=== PATIENT | female | born 1960 | race American Indian/Alaskan Native ===

== ENCOUNTER 2016-08-01 20:45 | Inpatient (IN) | payer OTHER ==
[2016-08-01 21:38] LABS: Hematocrit 36.5 % (30.3-42.9); Hemoglobin 11.7 gm/dl (10.1-14.3); Mean Corpuscular HGB Conc 32 % (30-34); Mean Corpuscular Hemoglobin 29 pg (28-32); Mean Corpuscular Volume 91 fl (79-97); Platelet Count 258 K/mm3 (140-440); Red Blood Count 4.03 M/mm3 (3.65-5.03); Red Cell Distribution Width 13.8 % (13.2-15.2); White Blood Count 3.2 K/mm3 (4.5-11.0)
[2016-08-01 21:49] LABS: INR 1.35 (0.87-1.13); Partial Thromboplastin Time 30.3 Sec. (24.2-36.6)
[2016-08-01 22:09] LABS: Anion Gap 15 mmol/L; BUN/Creatinine Ratio 15.71; Blood Urea Nitrogen 11 mg/dL (7-17); Calcium 9.3 mg/dL (8.4-10.2); Carbon Dioxide 27 mmol/L (22-30); Chloride 105.2 mmol/L (98-107); Glucose 98 mg/dL (65-100); Potassium 4.5 mmol/L (3.6-5.0); Sodium 143 mmol/L (137-145)
[2016-08-01 22:20] LABS: Bilirubin,Urine NEG (Negative); Blood,Urine NEG (Negative); Ketones,Urine NEG (Negative); Leukocyte Esterase,Urine TR (Negative); Mucus,Urine 3+ /HPF; Nitrite,Urine NEG (Negative); Protein,Urine <15 mg/dL mg/dL (Negative); Urobilinogen,Urine < 2.0 mg/dL (<2.0); WBC,Urine < 1.0 /HPF (0.0-6.0)
[2016-08-02] MEDS ORDERED: ZOFRAN IV ONE (06:55)
[2016-08-02] MEDS ORDERED: MORPHINE IV ONE (06:55)
[2016-08-02] MEDS ORDERED: ARGATROBAN 250 MG in NACL 0.9% 250ML 247.5 ML IV SCH (07:00)
--- NOTE | 2016-08-02 07:02 | Emergency Department Report ---
ED Extremity Problem HPI - General Chief complaint: Extremity Injury, Lower Stated complaint: L LEG BLOOD CLOT Time Seen by Provider: 08/02/16 06:32 Source: patient, RN notes reviewed Mode of arrival: Ambulatory Limitations: No Limitations - History of Present Illness Initial comments: 55-year-old female presents to the emergency department complaining of a DVT in her left thigh. Patient states for the past 2 weeks she has been having intermittent left thigh pain radiating into her groin. 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 She also reports having stents in both of her legs. Patient was seen by her vascular surgeon, Dr. Khan. She states that he did an ultrasound and found a large clot in her left thigh. She states that he wanted her to be admitted for IVC filter placement and "a drip to dissolve the clot." There are no other complaints. MD Complaint: extremity pain -: Gradual, week(s) (2) Location: left, lower extremity History of Same: Yes -: Yes myalgia, No fever, No associated dyspnea, No associated chest pain Severity scale (0 -10): 10 Quality: aching Consistency: constant Improves with: nothing Worsens with: nothing Associated Symptoms: denies other symptoms - Related Data Home Medications Medication Instructions Recorded Confirmed Last Taken traMADol [Ultram 50 MG tab] 50 mg PO Q8HR PRN 07/16/15 07/16/15 Unknown Previous Rx's Medication Instructions Recorded Last Taken Type Rivaroxaban [Xarelto] 15 mg PO BID #42 tablet 07/17/15 Unknown Rx Famotidine [Pepcid] 20 mg PO BID #20 tablet 07/19/15 Unknown Rx hydrOXYzine HCL [Atarax] 50 mg PO Q6HR PRN #30 tablet 07/19/15 Unknown Rx Allergies Allergy/AdvReac Type Severity Reaction Status Date / Time acetaminophen [From Percocet] Allergy Hives Verified 07/19/15 15:02 oxycodone HCl [From Percocet] Allergy Hives Verified 07/19/15 15:02 heparin AdvReac Severe Bleeding Verified 07/19/15 15:02 ED Review of Systems ROS: Stated complaint: L LEG BLOOD CLOT Other details as noted in HPI Comment: All other systems reviewed and negative Musculoskeletal: as per HPI (left leg swelling and pain) ED Past Medical Hx - Past Medical History Hx Hypertension: No Hx Congestive Heart Failure: No Hx Diabetes: No Hx Deep Vein Thrombosis: Yes (bilateral lower extremities,thrombectomy,ivc filter) Hx GERD: Yes Hx Asthma: No Hx COPD: No Hx Tuberculosis: No - Surgical History Hx Pacemaker: No Hx Internal Defibrillator: No Additional Surgical History: RIGHT LEG (INFECTION ) WITH WOUND VAC. FILTER AND REMOVAL - Social History Smoking Status: Never Smoker Substance Use Type: None - Medications Home Medications: Home Medications Medication Instructions Recorded Confirmed Last Taken Type traMADol [Ultram 50 MG tab] 50 mg PO Q8HR PRN 07/16/15 07/16/15 Unknown History Rivaroxaban [Xarelto] 15 mg PO BID #42 tablet 07/17/15 Unknown Rx Famotidine [Pepcid] 20 mg PO BID #20 tablet 07/19/15 Unknown Rx hydrOXYzine HCL [Atarax] 50 mg PO Q6HR PRN #30 tablet 07/19/15 Unknown Rx ED Physical Exam - General Limitations: No Limitations General appearance: alert, in no apparent distress - Head Head exam: Present: atraumatic, normocephalic - Eye Eye exam: Present: normal appearance, PERRL, EOMI - ENT ENT exam: Present: normal exam, normal orophraynx, mucous membranes moist - Neck Neck exam: Present: normal inspection, full ROM. Absent: tenderness - Respiratory Respiratory exam: Present: normal lung sounds bilaterally. Absent: respiratory distress - Cardiovascular Cardiovascular Exam: Present: regular rate, normal rhythm, normal heart sounds - GI/Abdominal GI/Abdominal exam: Present: soft, normal bowel sounds. Absent: distended, tenderness - Extremities Exam Extremities exam: Present: normal inspection, full ROM. Absent: tenderness - Back Exam Back exam: Present: normal inspection, full ROM. Absent: tenderness - Neurological Exam Neurological exam: Present: alert, oriented X3. Absent: motor sensory deficit - Skin Skin exam: Present: warm, dry, intact ED Course Vital Signs 08/01/16 08/02/16 08/02/16 21:18 03:10 04:07 Temperature 98.2 F Pulse Rate 67 58 L Respiratory 18 18 14 Rate Blood Pressure 119/73 Blood Pressure 117/63 [Left] O2 Sat by Pulse 100 99 Oximetry 08/02/16 05:49 Temperature 98.1 F Pulse Rate 64 Respiratory 12 Rate Blood Pressure Blood Pressure 120/70 [Left] O2 Sat by Pulse 99 Oximetry ED Medical Decision Making - Lab Data Result diagrams: 08/01/16 21:27 08/01/16 21:27 - Medical Decision Making Lab results reviewed and discussed with the patient. I have spoken with Dr. Real, drier belt conveyor for Dr. Khan. Patient is being started on an argatroban drip and will be kept nothing by mouth. Patient is to be admitted by the hospitalist. - Differential Diagnosis DVT Critical care attestation.: If time is entered above; I have spent that time in minutes in the direct care of this critically ill patient, excluding procedure time. ED Disposition Clinical Impression: DVT of leg (deep venous thrombosis) Qualifiers: Affected thrombotic vein of extremity: femoral Laterality: left Chronicity: acute Qualified Code(s): I82.412 - Acute embolism and thrombosis of left femoral vein Disposition: OP ADMITTED IP TO THIS HOSP Is pt being admited?: Yes Condition: Stable Referrals: PRIMARY CARE, [Primary Care Provider] - 3-5 Days Time of Disposition: 07:03
--- NOTE | 2016-08-02 07:19 | Admit Criteria Form ---
Admission Criteria Documentation: DEEP VENOUS THROMBOSIS OF LOWER EXTREMITIES Clinical Indications for Admission to Inpatient Care ( Place 'X' for any and all applicable criteria): Admission is indicated for ANY ONE of the following (1)(2)(3)(4): [ ]I. Documented extensive thrombosis (e.g., clot in vena cava or above iliofemoral bifurcation) [ ]II. Limb-threatening thrombosis (e.g., phlegmasia cerulea dolens) [ ]III. Active bleeding [ ]IV. Recent surgery (e.g., within 6 weeks) [ ]V. Active peptic ulcer disease [ ]. Thrombosis while on anticoagulation [ ]VII. [X ]VIII. Appropriate monitoring and therapy cannot be provided in home or outpatient setting [ ]IX. Thrombolysis (e.g., catheter-directed) or pharmaco mechanical thrombectomy needed (3) [ ]X. Vena cava filter placement planned (3) [ ]XI. Severely diminished cardiopulmonary reserve (e.g., pulmonary hypertension) [ ]XII. Severe renal failure (e.g., GFR less than 30 mL/min/1.73m2 (0.5 mL/sec /1.73m2)) [ ]XIII. Known clotting abnormality or deficiency (antithrombin III, protein C , or protein S) [ ]XIV. History of heparin-induced thrombocytopenia [ ]XV . Personal or family history of bleeding tendency or familial bleeding disorder that requires inpatient admission rather than observation care (Also use Deep Venous Thrombosis of Lower Extremities: Observation Care as appropriate) because of ANY ONE of the following: [ ]a) Significant allergic, autoimmune (thrombocytopenia), or coagulopathic reaction occurs in response to anticoagulation [ ]b) Other significant finding or clinical condition judged not to be within the scope of observation care Extended stay beyond goal length of stay may be needed for(1)(19): [ ]a) Hemorrhage or recent surgery(3) [ ]b) Inadequate oral anticoagulation [ ]c) Recurrent thromboembolism(3) [ ]d) Heparin-induced thrombocytopenia(14) The [facility] content [facility] by [facility] has been revised. The portions of the content which have been revised are identified through the use of italic text or in bold, and [facility] has neither reviewed nor approved the modified material. All other unmodified content is copyright [facility]. Please see references footnoted in the original [facility] edition 2016 Admission Criteria Met: Yes
[2016-08-02] MEDS ORDERED: MILK OF MAGNESIA PO PRN (07:51)
[2016-08-02] MEDS ORDERED: PROVENTIL IH PRN (07:51)
[2016-08-02] MEDS ORDERED: ANCEF/STERILE WATER 2 GM/20 ML 2 GM/20 ML SYRINGE IV NR ×2 (10:00)
[2016-08-02] MEDS ORDERED: DULCOLAX PR PRN (10:00)
[2016-08-02] MEDS ORDERED: MORPHINE ONE (12:42)
[2016-08-02] MEDS ORDERED: NACL 0.9% 1000 ML 1,000 ML ONE (12:44)
[2016-08-02] MEDS ORDERED: HEPARIN/ 0.45% NACL-25,000 UNIT/500 ML 25,000 UNIT/500 ML BAG ONE (12:44)
[2016-08-02] MEDS ORDERED: WATER FOR INJ (PF) 10 ML ONE ×2 (12:45→14:23)
[2016-08-02] MEDS ORDERED: XYLOCAINE 1%/ EPI 1:100,000 INFILTRATI ONE (12:45)
[2016-08-02] MEDS ORDERED: ANCEF/STERILE WATER 2 GM/20 ML 2 GM/20 ML SYRINGE IV ONE (12:46)
[2016-08-02 12:47] LABS: Alanine Aminotransferase 8 units/L (7-56); Albumin 3.7 g/dL (3.9-5); Albumin/Globulin Ratio 1.4 %; Alkaline Phosphatase 86 units/L (35-129); Total Protein 6.3 g/dL (6.3-8.2)
[2016-08-02 12:53] LABS: Bilirubin,Direct < 0.2 mg/dL (0-0.2)
[2016-08-02] MEDS ORDERED: HEPARIN/NS 5000 UNIT/500ML(CATH LAB) 1,000 ML IR ONE (13:50)
[2016-08-02] MEDS ORDERED: NACL 0.9% 500 ML 500 ML ONE (13:57)
[2016-08-02] MEDS: SUBLIMAZE ONE ×3 (14:05→14:50)
[2016-08-02] MEDS: VERSED ONE ×2 (14:05→14:20)
[2016-08-02] MEDS ORDERED: SUBLIMAZE ONE (14:19)
[2016-08-02] MEDS ORDERED: HEPARIN/NS 5000 UNIT/500ML(CATH LAB) 500 ML IR ONE (14:19)
[2016-08-02] MEDS ORDERED: VERSED ONE (14:19)
[2016-08-02] MEDS ORDERED: CATHFLO ONE ×2 (14:19→15:07)
[2016-08-02] MEDS: HEPARIN 10,000 UNITS/10 ML ONE ×4 (14:20→15:38)
[2016-08-02] MEDS ORDERED: NACL 0.9% 0 ML ONE (14:23)
[2016-08-02] MEDS ORDERED: NACL 0.9% 50 ML ONE (14:26)
[2016-08-02] MEDS: CATHFLO ONE ×2 (14:40→15:18)
[2016-08-02 15:46] LABS: Hematocrit 33.6 % (30.3-42.9); Hemoglobin 10.9 gm/dl (10.1-14.3); Mean Corpuscular HGB Conc 33 % (30-34); Mean Corpuscular Hemoglobin 30 pg (28-32); Mean Corpuscular Volume 91 fl (79-97); Platelet Count 204 K/mm3 (140-440); Red Blood Count 3.71 M/mm3 (3.65-5.03); Red Cell Distribution Width 13.6 % (13.2-15.2); White Blood Count 2.6 K/mm3 (4.5-11.0)
[2016-08-02 15:57] LABS: INR 1.38 (0.87-1.13)
[2016-08-02] MEDS ORDERED: NACL 0.9% 1000 ML 1,000 ML SHEATH SCH (16:00)
[2016-08-02] MEDS ORDERED: NACL 0.9% 1000 ML 1,000 ML EKOSCLUMEN SCH (16:00)
[2016-08-02] MEDS ORDERED: HEPARIN/ 0.45% NACL-25,000 UNIT/500 ML 25,000 UNIT/500 ML BAG SHEATH SCH (16:00)
[2016-08-02] MEDS ORDERED: NACL 0.9% 1000 ML 1,000 ML IV SCH (16:00)
--- NOTE | 2016-08-02 16:05 | Operative Report ---
Operative Report Operative Report: EXAM: 1. Ultrasound-guided access of the right internal jugular vein 2. Selection of the inferior vena cava with venography 3. Selection of the left external iliac vein with thenar atrophy 4. Selection of the left common femoral vein with angiography 5. Selection of the left superficial femoral vein with angiography 6. 10 mg TPA pulse spray infusion through the left common iliac vein, left external iliac vein, left common femoral vein, and left superficial femoral vein 7. Mechanical thrombectomy with 8 Sammarinese AngioJet of the left common iliac vein , left external iliac vein, left common femoral vein, and left superficial femoral vein 8. 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 2 weeks ago, the patient had recurrent severe left lower extremity pain and swelling and presented to the office with a left lower extremity DVT. She subsequently presented to the emergency room and risks, benefits, and alternatives of thrombolytic therapy was discussed with the patient. Patient wanted to proceed with aggressive endovascular thrombolysis due to her severe symptomatology and underlying venous stenting. The patient had a prior history of heparin-induced thrombocytopenia which was preliminarily diagnosed at [place]. Her records at [place] were reviewed and her hit panel was negative, which was unknown at the time she was transferred to [facility] due to the panel not being completed at time of transfer. She does not have heparin-induced thrombocytopenia. MEDICATIONS: Please see nursing report for full details. DEVICES: 8 Sammarinese AngioJet CONTRAST: 25 mL of nonionic contrast PROCEDURE: The risks, benefits, and alternatives were discussed with the patient; written informed consent was obtained. The patient was prepped and draped in a sterile fashion. The patient's left groin was prepped and draped in a sterile fashion in her right neck was prepped and draped in sterile fashion. Ultrasound was used to evaluate her right internal jugular vein which was patent. Under direct ultrasound guidance, the right internal jugular vein was accessed with a 21-gauge micropuncture needle after the area was anesthetized with 1% lidocaine. 0.018 inch wire was passed to the IVC. Needle was exchanged for transitional dilator. Wire was exchanged for 0.035 inch J-wire. Transitional dilator was exchanged for a 5 Sammarinese sheath. Pigtail was advanced over the wire and use to select the infrarenal inferior vena cava which was partially stented. The patient had an old Optese filter placed in the early which was previously stented with stents extending into the bilateral common iliac veins and left external iliac vein. Digital subjective angiography was performed demonstrating patency of the infrarenal IVC with reflux of contrast into the right common iliac vein which was patent. I attempted to push the pigtail catheter further into the common iliac vein, but the catheter would not pass, compatible with some element of chronic narrowing. Angled catheter and Glidewire advantage were used to select the left external iliac vein. Digital subtraction angiography demonstrated occlusive thrombus in the left common iliac vein and external iliac vein. Wire and catheter were used to select the left common femoral vein. Digital subtraction angiography demonstrates occlusion of the left common femoral vein. Wire and catheter were used to select the left superficial femoral vein. Digital subtraction angiography was performed demonstrated that the large branch of the superficial femoral vein was distally patent, but proximally occluded. Ultrasound was then used to evaluate the left groin which demonstrated that the left superficial femoral vein had a large more posterior branch which was below the profunda femoral vein. This branch was larger than the superficial femoral vein and was likely related to prior DVTs with recanalization. Given the large nature of the vein, I decided that this vein would be adequate for thrombolysis as it drained most flow from the left lower extremity. Sheath was upsized to an 8 Sammarinese sheath. 10 mg of TPA was then pulse spray infused using an 8 Sammarinese AngioJet into the left common iliac vein, external iliac vein, common femoral vein, and proximal superficial femoral vein. 8 Sammarinese AngioJet was then used to perform mechanical thrombectomy of the left common iliac vein, external iliac vein, common femoral vein, and proximal superficial femoral vein. Digital subtraction angiography was performed demonstrating greater than 50% residual thrombus in the left common iliac vein, external iliac vein, common femoral vein, and proximal superficial femoral vein. Thrombolytic catheter was advanced over the wire and passed across the left common iliac, external iliac, common femoral, and proximal superficial femoral vein. 4 mg of TPA was infused. 2-3000 units of heparin was then used to lock the sheath. Thrombolytic catheter and sheath were secured with 2-0 Ethilon. Patient tolerated the procedure well. No immediate postprocedure complication. She was then sent to the ICU in stable condition. FINDINGS: Please see procedure note above. IMPRESSION: 1. Successful selection of venography of the left lower extremity. 2. Successful mechanical thrombectomy of the left lower extremity. 3. Successful placement of a thrombolytic catheter in the left lower extremity.
[2016-08-02 16:11] LABS: Partial Thromboplastin Time 95.8 Sec. (24.2-36.6)
[2016-08-02] MEDS: CATHFLO 20 MG in NACL 0.9% 500 ML 500 ML EKOSDLUMEN SCH (16:21)
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
[2016-08-02 16:31] LABS: Basophils % (Manual) 0 % (0.0-1.8); Blastocytes % (Manual) 0 %; Eosinophils % (Manual) 0 % (0.0-4.3)
[2016-08-02 16:32] LABS: Anisocytosis 1+; Diff Status Complete
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
[2016-08-02] MEDS: MORPHINE IV PRN (18:23)
[2016-08-02] MEDS: ALUM-MAG HYDROX-SIMETH 200-200-20MG/5ML PO PRN (19:06)
--- NOTE | 2016-08-02 19:53 | XRay Report ---
FINAL REPORT EXAM: XR CHEST 1V AP HISTORY: chest pain TECHNIQUE: AP portable view of the chest PRIORS: CT chest 07/16/2015 FINDINGS: Lines, tubes, and devices: N/A Lungs and pleura: Trachea is normal in position. Lungs are clear of infiltrate, pleural effusion, vascular congestion, or pneumothorax. No change. Cardiomediastinal silhouette: Cardiac and mediastinal silhouettes are unremarkable. Other: Bony structures are intact. IMPRESSION: No acute cardiopulmonary process seen. No change.
[2016-08-02] MEDS: ZOFRAN IV PRN (20:48)
[2016-08-02] MEDS: NORCO 5/325 PO PRN (20:48)
[2016-08-02] MEDS: PEPCID PO SCH (21:26)
[2016-08-02 22:28] LABS: Creatine Kinase 85 units/L (30-135); Creatine Kinase MB < 1.0 ng/mL (0.0-4.0)
[2016-08-02 22:33] LABS: Anion Gap 17 mmol/L; BUN/Creatinine Ratio 13.33; Blood Urea Nitrogen 8 mg/dL (7-17); Calcium 8.9 mg/dL (8.4-10.2); Carbon Dioxide 24 mmol/L (22-30); Chloride 107.1 mmol/L (98-107); Glucose 89 mg/dL (65-100); Potassium 4.3 mmol/L (3.6-5.0); Sodium 144 mmol/L (137-145)
[2016-08-02 22:35] LABS: Creatine Kinase 34 units/L (30-135); Creatine Kinase MB < 1.0 ng/mL (0.0-4.0)
[2016-08-03 00:10] LABS: Basophils % (Auto) 0.3 % (0.0-1.8); Eosinophils % (Auto) 0.3 % (0.0-4.3); Hematocrit 35.6 % (30.3-42.9); Hemoglobin 11.4 gm/dl (10.1-14.3); Mean Corpuscular HGB Conc 32 % (30-34); Mean Corpuscular Hemoglobin 29 pg (28-32); Mean Corpuscular Volume 92 fl (79-97); Platelet Count 198 K/mm3 (140-440); Red Blood Count 3.88 M/mm3 (3.65-5.03); Red Cell Distribution Width 13.4 % (13.2-15.2); White Blood Count 3.2 K/mm3 (4.5-11.0)
[2016-08-03] MEDS: MORPHINE IV PRN ×5 (00:56→22:55)
[2016-08-03 03:43] LABS: Anion Gap 17 mmol/L; BUN/Creatinine Ratio 11.25; Blood Urea Nitrogen 9 mg/dL (7-17); Calcium 8.9 mg/dL (8.4-10.2); Carbon Dioxide 23 mmol/L (22-30); Chloride 105.8 mmol/L (98-107); Glucose 117 mg/dL (65-100); Potassium 4.3 mmol/L (3.6-5.0); Sodium 141 mmol/L (137-145)
[2016-08-03 03:44] LABS: Basophils % (Auto) 0.6 % (0.0-1.8); Eosinophils % (Auto) 0.3 % (0.0-4.3); Hematocrit 37.2 % (30.3-42.9); Hemoglobin 12.1 gm/dl (10.1-14.3); Mean Corpuscular HGB Conc 32 % (30-34); Mean Corpuscular Hemoglobin 29 pg (28-32); Mean Corpuscular Volume 90 fl (79-97); Platelet Count 170 K/mm3 (140-440); Red Blood Count 4.12 M/mm3 (3.65-5.03); Red Cell Distribution Width 13.5 % (13.2-15.2); White Blood Count 3.7 K/mm3 (4.5-11.0)
[2016-08-03 03:46] LABS: Creatine Kinase 57 units/L (30-135)
[2016-08-03 04:23] LABS: Creatine Kinase MB < 1.0 ng/mL (0.0-4.0)
[2016-08-03] MEDS: ZOFRAN IV PRN ×4 (04:40→16:38)
[2016-08-03] MEDS: NORCO 5/325 PO PRN (04:49)
[2016-08-03] MEDS ORDERED: NACL 0.9% 500 ML 500 ML IV NR (09:00)
[2016-08-03] MEDS: SUBLIMAZE ONE ×8 (09:40→20:06)
[2016-08-03 09:41] LABS: Basophils % (Auto) 0.1 % (0.0-1.8); Eosinophils % (Auto) 0.3 % (0.0-4.3); Hematocrit 40.2 % (30.3-42.9); Hemoglobin 12.5 gm/dl (10.1-14.3); Mean Corpuscular HGB Conc 31 % (30-34); Mean Corpuscular Hemoglobin 29 pg (28-32); Mean Corpuscular Volume 93 fl (79-97); Platelet Count 151 K/mm3 (140-440); Red Blood Count 4.34 M/mm3 (3.65-5.03); Red Cell Distribution Width 13.5 % (13.2-15.2); White Blood Count 4.6 K/mm3 (4.5-11.0)
[2016-08-03] MEDS: CATHFLO 20 MG in NACL 0.9% 500 ML 500 ML EKOSDLUMEN SCH (10:31)
[2016-08-03] MEDS: PEPCID PO SCH ×2 (10:33→22:37)
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
[2016-08-03] MEDS ORDERED: NACL 0.9% 1000 ML 1,000 ML IV SCH (12:00)
--- NOTE | 2016-08-03 15:16 | Progress Note ---
Assessment and Plan Assessment and plan: Patient is a 55-year-old female with a history of recurrent thrombosis. 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 Also thrombectomy and angioplasty with stenting of the inferior vena cava and iliofemoral veins. Who presents to the hospital today with complaints of recurrent left lower extremity pain and swelling for the past 2 weeks. On outside ultrasound revealed a left lower extremity DVT despite patient being on full dose anticoagulation. She was sent to the hospital by the vascular surgeon for further evaluation. Patient denies any chest pain, nausea, vomiting, diarrhea. Patient reports that she's been compliant with her medications. She denies any recent long distance travel. She denies any shortness of breath at this time. She reports the pain in the left lower extremity as 10 over 10 intensity waxing and waning with no radiation. * Left lower extremity DVT * S/P EKOS for LE VTE * HIT antibiotics * Hypotension * Fibromyalgia * Vasculopath * Secondary Coagulopathy * Leukopenia PLAN: * Supportive care, start patient on Argtroban as patient has HIT antibiotics. * Monitor H/H * PICC access if ok with vascular * Vascular consult * DVT/GI prophylaxis History Interval history: Patient seen and examined, currently in no acute distress. Resting comfortable in the ICU. Limited IV access reported by nursing staff. Hospitalist Physical - Physical exam Narrative exam: VITAL SIGNS: Reviewed. GENERAL: The patient appeared well nourished and normally developed. Vital signs as documented. HEAD: No signs of head trauma. EYES: Pupils are equal. Extraocular motions intact. EARS: Hearing grossly intact. MOUTH: Oropharynx is normal. NECK: No adenopathy, no JVD. CHEST: Chest with clear breath sounds bilaterally. No wheezes, rales, or rhonchi. CARDIAC: Regular rate and rhythm. S1 and S2, without murmurs, gallops, or rubs. VASCULAR: Left lower ext Edema. Peripheral pulses normal and equal in all extremities. ABDOMEN: Soft, without detectable tenderness. No sign of distention. No rebound or guarding, and no masses palpated. Bowel Sounds normal. MUSCULOSKELETAL: Good range of motion of all major joints. Extremities without clubbing, cyanosis. Left lower ext edema. NEUROLOGIC EXAM: Alert and oriented x 3. No focal sensory or strength deficits. Speech normal. Follows commands. PSYCHIATRIC: Mood normal. SKIN: Right lower ext scare - Constitutional Vitals: Temp Pulse Resp BP Pulse Ox 99.2 F 81 14 104/51 100 08/03/16 12:00 08/03/16 11:41 08/03/16 11:41 08/03/16 11:41 08/03/16 11:41 General appearance: Present: no acute distress Results - Labs CBC & Chem 7: 08/03/16 09:33 08/03/16 02:57 Labs: Laboratory Last Values WBC 4.6 K/mm3 (4.5-11.0) 08/03/16 09:33 RBC 4.34 M/mm3 (3.65-5.03) 08/03/16 09:33 Hgb 12.5 gm/dl (10.1-14.3) 08/03/16 09:33 Hct 40.2 % (30.3-42.9) 08/03/16 09:33 MCV 93 fl (79-97) D 08/03/16 09:33 MCH 29 pg (28-32) 08/03/16 09:33 MCHC 31 % (30-34) 08/03/16 09:33 RDW 13.5 % (13.2-15.2) 08/03/16 09:33 Plt Count 151 K/mm3 (140-440) 08/03/16 09:33 Lymph % (Auto) 13.5 % (13.4-35.0) 08/03/16 09:33 [place] % (Auto) 3.2 % (0.0-7.3) 08/03/16 09:33 Eos % (Auto) 0.3 % (0.0-4.3) 08/03/16 09:33 Baso % (Auto) 0.1 % (0.0-1.8) 08/03/16 09:33 Lymph # 0.6 K/mm3 (1.2-5.4) L 08/03/16 09:33 [place] # 0.1 K/mm3 (0.0-0.8) 08/03/16 09:33 Eos # 0.0 K/mm3 (0.0-0.4) 05/11/17 09:33 Baso # 0.0 K/mm3 (0.0-0.1) 08/03/16 09:33 Add Manual Diff Complete 08/02/16 Unknown Total Counted 100 08/02/16 Unknown Seg Neutrophils % 82.9 % (40.0-70.0) H 08/03/16 09:33 Seg Neuts % (Manual) 35.0 % (40.0-70.0) L 08/02/16 Unknown Band Neutrophils % 0 % 08/02/16 Unknown Lymphocytes % (Manual) 53.0 % (13.4-35.0) H 08/02/16 Unknown Reactive Lymphs % (Man) 0 % 08/02/16 Unknown Monocytes % (Manual) 12.0 % (0.0-7.3) H 08/02/16 Unknown Eosinophils % (Manual) 0 % (0.0-4.3) 08/02/16 Unknown Basophils % (Manual) 0 % (0.0-1.8) 08/02/16 Unknown Metamyelocytes % 0 % 08/02/16 Unknown Myelocytes % 0 % 08/02/16 Unknown Promyelocytes % 0 % 08/02/16 Unknown Blast Cells % 0 % 08/02/16 Unknown Nucleated RBC % Not Reportable 08/02/16 Unknown Seg Neutrophils # 3.8 K/mm3 (1.8-7.7) 08/03/16 09:33 Seg Neutrophils # Man 0.9 K/mm3 (1.8-7.7) L 08/02/16 Unknown Band Neutrophils # 0.0 K/mm3 08/02/16 Unknown Lymphocytes # (Manual) 1.4 K/mm3 (1.2-5.4) 08/02/16 Unknown Abs React Lymphs (Man) 0.0 K/mm3 08/02/16 Unknown Monocytes # (Manual) 0.3 K/mm3 (0.0-0.8) 08/02/16 Unknown Eosinophils # (Manual) 0.0 K/mm3 (0.0-0.4) 08/02/16 Unknown Basophils # (Manual) 0.0 K/mm3 (0.0-0.1) 08/02/16 Unknown Metamyelocytes # 0.0 K/mm3 08/02/16 Unknown Myelocytes # 0.0 K/mm3 08/02/16 Unknown Promyelocytes # 0.0 K/mm3 08/02/16 Unknown Blast Cells # 0.0 K/mm3 08/02/16 Unknown WBC Morphology Not Reportable 08/02/16 Unknown Hypersegmented Neuts Not Reportable 08/02/16 Unknown Hyposegmented Neuts Not Reportable 08/02/16 Unknown Hypogranular Neuts Not Reportable 08/02/16 Unknown Smudge Cells Not Reportable 08/02/16 Unknown Toxic Granulation Not Reportable 08/02/16 Unknown Toxic Vacuolation Not Reportable 08/02/16 Unknown Dohle Bodies Not Reportable 08/02/16 Unknown Pelger-Huet Anomaly Not Reportable 08/02/16 Unknown Martina Rods Not Reportable 08/02/16 Unknown Platelet Estimate Appears normal 08/02/16 Unknown Clumped Platelets Not Reportable 08/02/16 Unknown Plt Clumps, EDTA Not Reportable 08/02/16 Unknown Large Platelets Not Reportable 08/02/16 Unknown Giant Platelets Not Reportable 08/02/16 Unknown Platelet Satelliting Not Reportable 08/02/16 Unknown Plt Morphology Comment Not Reportable 08/02/16 Unknown RBC Morphology Not Reportable 08/02/16 Unknown Dimorphic RBCs Not Reportable 08/02/16 Unknown Polychromasia Not Reportable 08/02/16 Unknown Hypochromasia Not Reportable 08/02/16 Unknown Poikilocytosis Not Reportable 08/02/16 Unknown Anisocytosis 1+ 08/02/16 Unknown Microcytosis Not Reportable 08/02/16 Unknown Macrocytosis Not Reportable 08/02/16 Unknown Spherocytes Not Reportable 08/02/16 Unknown Pappenheimer Bodies Not Reportable 08/02/16 Unknown Sickle Cells Not Reportable 08/02/16 Unknown Target Cells Not Reportable 08/02/16 Unknown Tear Drop Cells Not Reportable 08/02/16 Unknown Ovalocytes Not Reportable 08/02/16 Unknown Helmet Cells Not Reportable 08/02/16 Unknown [place] Bodies Not Reportable 08/02/16 Unknown [place] Rings Not Reportable 08/02/16 Unknown [place] Cells Not Reportable 08/02/16 Unknown Bite Cells Not Reportable 08/02/16 Unknown Crenated Cell Not Reportable 08/02/16 Unknown Elliptocytes Not Reportable 08/02/16 Unknown Acanthocytes (Spur) Not Reportable 08/02/16 Unknown Rouleaux Not Reportable 08/02/16 Unknown Hemoglobin C Crystals Not Reportable 08/02/16 Unknown Schistocytes Not Reportable 08/02/16 Unknown Malaria parasites Not Reportable 08/02/16 Unknown [place] Bodies Not Reportable 08/02/16 Unknown Hem Pathologist Commnt No 08/02/16 Unknown PT 16.9 Sec. (12.2-14.9) H 08/02/16 Unknown INR 1.38 (0.87-1.13) H 08/02/16 Unknown APTT 95.8 Sec. (24.2-36.6) H* 08/02/16 Unknown Fibrinogen 177 mg/dl (211-480) L 08/03/16 09:00 Heparin Anti-Xa Level 0.19 U.I./ml (0.3-0.7) L 08/03/16 09:00 Sodium 141 mmol/L (137-145) 08/03/16 02:57 Potassium 4.3 mmol/L (3.6-5.0) 08/03/16 02:57 Chloride 105.8 mmol/L (98-107) 08/03/16 02:57 Carbon Dioxide 23 mmol/L (22-30) 08/03/16 02:57 Anion Gap 17 mmol/L 08/03/16 02:57 BUN 9 mg/dL (7-17) 08/03/16 02:57 Creatinine 0.8 mg/dL (0.7-1.2) 08/03/16 02:57 Estimated GFR > 60 ml/min 08/03/16 02:57 BUN/Creatinine Ratio 11.25 % 08/03/16 02:57 Glucose 117 mg/dL (65-100) H 08/03/16 02:57 Calcium 8.9 mg/dL (8.4-10.2) 08/03/16 02:57 Total Bilirubin 0.20 mg/dL (0.1-1.2) 08/02/16 10:37 Direct Bilirubin < 0.2 mg/dL (0-0.2) 08/02/16 10:37 Indirect Bilirubin 0.0 mg/dL 08/02/16 10:37 AST 11 units/L (5-40) 08/02/16 10:37 ALT 8 units/L (7-56) 08/02/16 10:37 Alkaline Phosphatase 86 units/L (35-129) 08/02/16 10:37 Total Creatine Kinase 57 units/L (30-135) 08/03/16 02:57 CK-MB (CK-2) < 1.0 ng/mL (0.0-4.0) 08/03/16 02:57 CK-MB (CK-2) Rel Index 1.7 (0-4) 08/03/16 02:57 Troponin T < 0.010 ng/mL (0.00-0.029) 08/03/16 02:57 Total Protein 6.3 g/dL (6.3-8.2) 08/02/16 10:37 Albumin 3.7 g/dL (3.9-5) L 08/02/16 10:37 Albumin/Globulin Ratio 1.4 % 08/02/16 10:37 Urine Color Yellow (Yellow) 08/01/16 21:30 Urine Turbidity Clear (Clear) 08/01/16 21:30 Urine pH 5.0 (5.0-7.0) 08/01/16 21:30 Ur Specific [place] 1.018 (1.003-1.030) 08/01/16 21:30 Urine Protein <15 mg/dl mg/dL (Negative) 08/01/16 21:30 Urine Glucose (UA) Neg mg/dL (Negative) 08/01/16 21:30 Urine Ketones Neg mg/dL (Negative) 08/01/16 21:30 Urine Blood Neg (Negative) 08/01/16 21:30 Urine Nitrite Neg (Negative) 08/01/16 21:30 Urine Bilirubin Neg (Negative) 08/01/16 21:30 Urine Urobilinogen < 2.0 mg/dL (<2.0) 08/01/16 21:30 Ur Leukocyte Esterase Tr (Negative) 08/01/16 21:30 Urine WBC (Auto) < 1.0 /HPF (0.0-6.0) 08/01/16 21:30 Urine RBC (Auto) 2.0 /HPF (0.0-6.0) 08/01/16 21:30 U Epithel Cells (Auto) 2.0 /HPF (0-13.0) 08/01/16 21:30 Urine Mucus 3+ /HPF 08/01/16 21:30 Blood Type B NEGATIVE 08/02/16 Unknown Antibody Screen TNR 08/02/16 Unknown ANGY Antibody Screen Negative 08/02/16 Unknown
[2016-08-03] MEDS ORDERED: ZOFRAN ONE (16:24)
[2016-08-03] MEDS ORDERED: HEPARIN/NS 5000 UNIT/500ML(CATH LAB) 500 ML IR ONE (16:41)
[2016-08-03] MEDS ORDERED: XYLOCAINE 1%/ EPI 1:100,000 INFILTRATI ONE (16:42)
[2016-08-03] MEDS ORDERED: HEPARIN 10,000 UNITS/10 ML ONE (16:45)
[2016-08-03] MEDS ORDERED: ANCEF/STERILE WATER 2 GM/20 ML 0 GM/0 ML SYRINGE IV ONE (16:45)
[2016-08-03] MEDS ORDERED: NACL 0.9% 500 ML 500 ML ONE ×2 (17:49→18:25)
[2016-08-03] MEDS ORDERED: BENADRYL ONE (17:56)
[2016-08-03] MEDS ORDERED: WATER FOR INJ (PF) 10 ML ONE (18:00)
[2016-08-03] MEDS ORDERED: NACL 0.9% 100 ML ONE ×2 (18:00→18:29)
[2016-08-03] MEDS ORDERED: NACL 0.9% 500 ML 1,000 ML ONE (18:00)
[2016-08-03] MEDS ORDERED: ANGIOMAX IV ONE ×2 (18:00→18:30)
[2016-08-03] MEDS: VERSED ONE ×4 (18:07→19:40)
[2016-08-03] MEDS: ELIQUIS PO SCH (20:05)
--- NOTE | 2016-08-03 20:09 | Post Operative Note ---
Date of procedure: 08/03/16 Pre-op diagnosis: Ilofemoral LLE DVT Post-op diagnosis: same Procedure: 1. Venography of the left lower extremity 2. Removal of the EKOS thrombolytic catheter from the left lower extremity 3. Aspiration thrombectomy of the left common iliac vein, external iliac vein, common femoral vein, and superficial femoral vein 4. 8 Fr angiojet of the left common iliac vein, external iliac vein, common femoral vein and superficial femoral vein 5. 7 Fr over the wire trerotola mechanical thrombectomy of the left common femoral vein and external iliac vein 6. Angioplasty of the left superficial femoral vein and common femoral vein with an 8 mm angioplasty balloon 7. Angioplasty of the left common femoral vein, external iliac vein and left common iliac vein with a 12 mm angioplasty balloon 8. 7 Fr Driver Merchandiser mechanical thrombectomy of the left common iliac vein, left external iliac vein, left common femoral vein, and superficial femoral vein 9. Stenting of the left external iliac vein with a 16 mm x 40 mm Wallstent 10. Angioplasty of the left common iliac vein, left external iliac vein, and left common femoral vein with a 12 mm angioplasty balloon 11. Angioplasty of the left common iliac vein, and left external iliac vein with a 14 mm angioplasty balloon 12. Angioplasty of the left superficial femoral vein and common femoral vein with an 8 mm angioplasty balloon Anesthesia: local (w/ conscious sedation) Surgeon: RUBIO REHMAN Estimated blood loss: other (EBL 300 mL) Condition: stable Disposition: ICU
--- NOTE | 2016-08-03 20:20 | Event Note ---
Date: 08/03/16 Although the HIT panel was negative at the outside facility, patient has finding compatible with some allergic reaction with hives along her face and upper extremity. Unclear the etiology. Although this is likely not HIT, decided to not use heparin for the procedure. HIT panel sent off. Started Eliquis post procedure and will discontinue angiomax 2 hrs after procedure.
[2016-08-04] MEDS: MORPHINE IV PRN ×3 (00:43→23:34)
[2016-08-04 05:20] LABS: Hematocrit 33.4 % (30.3-42.9); Hemoglobin 10.8 gm/dl (10.1-14.3); Mean Corpuscular HGB Conc 32 % (30-34); Mean Corpuscular Hemoglobin 30 pg (28-32); Mean Corpuscular Volume 92 fl (79-97); Red Blood Count 3.64 M/mm3 (3.65-5.03); Red Cell Distribution Width 13.5 % (13.2-15.2); White Blood Count 6.4 K/mm3 (4.5-11.0)
[2016-08-04 05:24] LABS: Platelet Count 99 K/mm3 (140-440)
--- NOTE | 2016-08-04 06:58 | Vascular Lab Report ---
LOWER EXTREMITY VENOUS DUPLEX: REASON FOR EXAM: History of deep venous thrombosis. COMMENTS ON THE RIGHT: Nonocclusive deep venous thromboses noted in the right common femoral vein. The remaining veins visualized are freely compressible without evidence of internal echogenicity. Spontaneous and phasic flow is present proximally. COMMENTS ON THE LEFT: Deep venous thrombosis noted in the femoral vein, deep femoral vein, common femoral vein, and external iliac vein. The clot in the common femoral and distal external iliac veins appears acute the rest of the clot appears chronic. The remaining veins visualized are freely compressible without evidence of internal echogenicity. Spontaneous and phasic flow is absent proximally. IMPRESSION: Bilateral deep venous thrombosis.
--- NOTE | 2016-08-04 07:07 | Vascular Lab Report ---
MISCELLANEOUS VESSEL IDENTIFICATION: COMMENTS ON THE SCAN: The right internal jugular vein was identified and under real-time ultrasound guidance was cannulated. IMPRESSION: Successful ultrasound guided vein cannulation.
--- NOTE | 2016-08-04 07:07 | Vascular Lab Report ---
MISCELLANEOUS VESSEL IDENTIFICATION: COMMENTS ON THE SCAN: The left femoral vein was identified and under real-time ultrasound guidance was cannulated. IMPRESSION: Successful ultrasound guided vein cannulation.
[2016-08-04 07:22] LABS: Anion Gap 17 mmol/L; BUN/Creatinine Ratio 15.71; Blood Urea Nitrogen 11 mg/dL (7-17); Calcium 8.5 mg/dL (8.4-10.2); Carbon Dioxide 23 mmol/L (22-30); Chloride 105.2 mmol/L (98-107); Glucose 167 mg/dL (65-100); Potassium 4.5 mmol/L (3.6-5.0); Sodium 141 mmol/L (137-145)
[2016-08-04] MEDS: BENADRYL IV PRN ×2 (07:50→17:02)
--- NOTE | 2016-08-04 08:27 | Progress Note ---
Assessment and Plan - Patient Problems (1) DVT of leg (deep venous thrombosis) Current Visit: Yes Status: Chronic Qualifiers: Affected thrombotic vein of extremity: femoral Laterality: left Chronicity: acute Qualified Code(s): I82.412 - Acute embolism and thrombosis of left femoral vein Plan to address problem: Continue Eliquis. 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 Possibly related to IV Heparin. Hematology consult History Interval history: Patient feels fine. Complaining of neck pain Hospitalist Physical - Constitutional Vitals: Temp Pulse Resp BP Pulse Ox 98.0 F 64 14 108/60 100 08/04/16 08:00 08/04/16 08:00 08/04/16 08:00 08/04/16 08:00 08/04/16 08:00 General appearance: Present: no acute distress - EENT Eyes: Present: PERRL, EOM intact ENT: hearing intact, clear oral mucosa - Neck Neck: Present: supple, normal ROM - Respiratory Respiratory effort: normal Respiratory: bilateral: CTA - Cardiovascular Rhythm: regular Heart Sounds: Present: S1 & S2 - Extremities Extremities: no ischemia, No edema - Abdominal General gastrointestinal: soft, non-tender, non-distended, normal bowel sounds - Psychiatric Psychiatric: appropriate mood/affect, intact judgment & insight - Neurologic Neurologic: CNII-XII intact, moves all extremities Results - Labs CBC & Chem 7: 08/04/16 04:56 08/04/16 04:56 Labs: Laboratory Last Values WBC 6.4 K/mm3 (4.5-11.0) 08/04/16 04:56 RBC 3.64 M/mm3 (3.65-5.03) L 08/04/16 04:56 Hgb 10.8 gm/dl (10.1-14.3) 08/04/16 04:56 Hct 33.4 % (30.3-42.9) D 08/04/16 04:56 MCV 92 fl (79-97) 08/04/16 04:56 MCH 30 pg (28-32) 08/04/16 04:56 MCHC 32 % (30-34) 08/04/16 04:56 RDW 13.5 % (13.2-15.2) 08/04/16 04:56 Plt Count 99 K/mm3 (140-440) L 08/04/16 04:56 Lymph % (Auto) 13.5 % (13.4-35.0) 08/03/16 09:33 Sebastian % (Auto) 3.2 % (0.0-7.3) 08/03/16 09:33 Eos % (Auto) 0.3 % (0.0-4.3) 08/03/16 09:33 Baso % (Auto) 0.1 % (0.0-1.8) 08/03/16 09:33 Lymph # 0.6 K/mm3 (1.2-5.4) L 08/03/16 09:33 Sebastian # 0.1 K/mm3 (0.0-0.8) 08/03/16 09:33 Eos # 0.0 K/mm3 (0.0-0.4) 08/03/16 09:33 Baso # 0.0 K/mm3 (0.0-0.1) 08/03/16 09:33 Add Manual Diff Complete 08/02/16 Unknown Total Counted 100 08/02/16 Unknown Seg Neutrophils % 82.9 % (40.0-70.0) H 08/03/16 09:33 Seg Neuts % (Manual) 35.0 % (40.0-70.0) L 08/02/16 Unknown Band Neutrophils % 0 % 08/02/16 Unknown Lymphocytes % (Manual) 53.0 % (13.4-35.0) H 08/02/16 Unknown Reactive Lymphs % (Man) 0 % 08/02/16 Unknown Monocytes % (Manual) 12.0 % (0.0-7.3) H 08/02/16 Unknown Eosinophils % (Manual) 0 % (0.0-4.3) 08/02/16 Unknown Basophils % (Manual) 0 % (0.0-1.8) 08/02/16 Unknown Metamyelocytes % 0 % 08/02/16 Unknown Myelocytes % 0 % 08/02/16 Unknown Promyelocytes % 0 % 08/02/16 Unknown Blast Cells % 0 % 08/02/16 Unknown Nucleated RBC % Not Reportable 08/02/16 Unknown Seg Neutrophils # 3.8 K/mm3 (1.8-7.7) 08/03/16 09:33 Seg Neutrophils # Man 0.9 K/mm3 (1.8-7.7) L 08/02/16 Unknown Band Neutrophils # 0.0 K/mm3 08/02/16 Unknown Lymphocytes # (Manual) 1.4 K/mm3 (1.2-5.4) 08/02/16 Unknown Abs React Lymphs (Man) 0.0 K/mm3 08/02/16 Unknown Monocytes # (Manual) 0.3 K/mm3 (0.0-0.8) 08/02/16 Unknown Eosinophils # (Manual) 0.0 K/mm3 (0.0-0.4) 08/02/16 Unknown Basophils # (Manual) 0.0 K/mm3 (0.0-0.1) 08/02/16 Unknown Metamyelocytes # 0.0 K/mm3 08/02/16 Unknown Myelocytes # 0.0 K/mm3 08/02/16 Unknown Promyelocytes # 0.0 K/mm3 08/02/16 Unknown Blast Cells # 0.0 K/mm3 08/02/16 Unknown WBC Morphology Not Reportable 08/02/16 Unknown Hypersegmented Neuts Not Reportable 08/02/16 Unknown Hyposegmented Neuts Not Reportable 08/02/16 Unknown Hypogranular Neuts Not Reportable 08/02/16 Unknown Smudge Cells Not Reportable 08/02/16 Unknown Toxic Granulation Not Reportable 08/02/16 Unknown Toxic Vacuolation Not Reportable 08/02/16 Unknown Dohle Bodies Not Reportable 08/02/16 Unknown Pelger-Huet Anomaly Not Reportable 08/02/16 Unknown Martina Rods Not Reportable 08/02/16 Unknown Platelet Estimate Appears normal 08/02/16 Unknown Clumped Platelets Not Reportable 08/02/16 Unknown Plt Clumps, EDTA Not Reportable 08/02/16 Unknown Large Platelets Not Reportable 08/02/16 Unknown Giant Platelets Not Reportable 08/02/16 Unknown Platelet Satelliting Not Reportable 08/02/16 Unknown Plt Morphology Comment Not Reportable 08/02/16 Unknown RBC Morphology Not Reportable 08/02/16 Unknown Dimorphic RBCs Not Reportable 08/02/16 Unknown Polychromasia Not Reportable 08/02/16 Unknown Hypochromasia Not Reportable 08/02/16 Unknown Poikilocytosis Not Reportable 08/02/16 Unknown Anisocytosis 1+ 08/02/16 Unknown Microcytosis Not Reportable 08/02/16 Unknown Macrocytosis Not Reportable 08/02/16 Unknown Spherocytes Not Reportable 08/02/16 Unknown Pappenheimer Bodies Not Reportable 08/02/16 Unknown Sickle Cells Not Reportable 08/02/16 Unknown Target Cells Not Reportable 08/02/16 Unknown Tear Drop Cells Not Reportable 08/02/16 Unknown Ovalocytes Not Reportable 08/02/16 Unknown Helmet Cells Not Reportable 08/02/16 Unknown [facility] [facility] [place] Bodies Not Reportable 08/02/16 Unknown Linch Rings Not Reportable 08/02/16 Unknown Kaiser Cells Not Reportable 08/02/16 Unknown Bite Cells Not Reportable 08/02/16 Unknown Crenated Cell Not Reportable 08/02/16 Unknown Elliptocytes Not Reportable 08/02/16 Unknown Acanthocytes (Spur) Not Reportable 08/02/16 Unknown Rouleaux Not Reportable 08/02/16 Unknown Hemoglobin C Crystals Not Reportable 08/02/16 Unknown Schistocytes Not Reportable 08/02/16 Unknown Malaria parasites Not Reportable 08/02/16 Unknown Adrian Bodies Not Reportable 08/02/16 Unknown Hem Pathologist Commnt No 08/02/16 Unknown PT 16.9 Sec. (12.2-14.9) H 08/02/16 Unknown INR 1.38 (0.87-1.13) H 08/02/16 Unknown APTT 95.8 Sec. (24.2-36.6) H* 08/02/16 Unknown Fibrinogen 177 mg/dl (211-480) L 08/03/16 09:00 Heparin Anti-Xa Level 0.19 U.I./ml (0.3-0.7) L 08/03/16 09:00 Sodium 141 mmol/L (137-145) 08/04/16 04:56 Potassium 4.5 mmol/L (3.6-5.0) 08/04/16 04:56 Chloride 105.2 mmol/L (98-107) 08/04/16 04:56 Carbon Dioxide 23 mmol/L (22-30) 08/04/16 04:56 Anion Gap 17 mmol/L 08/04/16 04:56 BUN 11 mg/dL (7-17) 08/04/16 04:56 Creatinine 0.7 mg/dL (0.7-1.2) 08/04/16 04:56 Estimated GFR > 60 ml/min 08/04/16 04:56 BUN/Creatinine Ratio 15.71 % 08/04/16 04:56 Glucose 167 mg/dL (65-100) H 08/04/16 04:56 Calcium 8.5 mg/dL (8.4-10.2) 08/04/16 04:56 Total Bilirubin 0.20 mg/dL (0.1-1.2) 08/02/16 10:37 Direct Bilirubin < 0.2 mg/dL (0-0.2) 08/02/16 10:37 Indirect Bilirubin 0.0 mg/dL 08/02/16 10:37 AST 11 units/L (5-40) 08/02/16 10:37 ALT 8 units/L (7-56) 08/02/16 10:37 Alkaline Phosphatase 86 units/L (35-129) 08/02/16 10:37 Total Creatine Kinase 57 units/L (30-135) 08/03/16 02:57 CK-MB (CK-2) < 1.0 ng/mL (0.0-4.0) 08/03/16 02:57 CK-MB (CK-2) Rel Index 1.7 (0-4) 08/03/16 02:57 Troponin T < 0.010 ng/mL (0.00-0.029) 08/03/16 02:57 Total Protein 6.3 g/dL (6.3-8.2) 08/02/16 10:37 Albumin 3.7 g/dL (3.9-5) L 08/02/16 10:37 Albumin/Globulin Ratio 1.4 % 08/02/16 10:37 Urine Color Yellow (Yellow) 08/01/16 21:30 Urine Turbidity Clear (Clear) 08/01/16 21:30 Urine pH 5.0 (5.0-7.0) 08/01/16 21:30 Ur Specific [place] 1.018 (1.003-1.030) 08/01/16 21:30 Urine Protein <15 mg/dl mg/dL (Negative) 08/01/16 21:30 Urine Glucose (UA) Neg mg/dL (Negative) 08/01/16 21:30 Urine Ketones Neg mg/dL (Negative) 08/01/16 21:30 Urine Blood Neg (Negative) 08/01/16 21:30 Urine Nitrite Neg (Negative) 08/01/16 21:30 Urine Bilirubin Neg (Negative) 08/01/16 21:30 Urine Urobilinogen < 2.0 mg/dL (<2.0) 08/01/16 21:30 Ur Leukocyte Esterase Tr (Negative) 08/01/16 21:30 Urine WBC (Auto) < 1.0 /HPF (0.0-6.0) 08/01/16 21:30 Urine RBC (Auto) 2.0 /HPF (0.0-6.0) 08/01/16 21:30 U Epithel Cells (Auto) 2.0 /HPF (0-13.0) 08/01/16 21:30 Urine Mucus 3+ /HPF 08/01/16 21:30 Blood Type B NEGATIVE 08/02/16 Unknown Antibody Screen TNR 08/02/16 Unknown ANGY Antibody Screen Negative 08/02/16 Unknown
--- NOTE | 2016-08-04 08:50 | Operative Report ---
Operative Report Operative Report: EXAM: 1. Venography of the left lower extremity 2. Removal of the EKOS thrombolytic catheter from the left lower extremity 3. Aspiration thrombectomy of the left common iliac vein, external iliac vein, common femoral vein, and superficial femoral vein 4. 8 Fr angiojet of the left common iliac vein, external iliac vein, common femoral vein and superficial femoral vein 5. 7 Fr over the wire trerotola mechanical thrombectomy of the left common femoral vein and external iliac vein 6. Angioplasty of the left superficial femoral vein and common femoral vein with an 8 mm angioplasty balloon 7. Angioplasty of the left common femoral vein, external iliac vein and left common iliac vein with a 12 mm angioplasty balloon 8. 7 Fr Program Review Director mechanical thrombectomy of the IVC, left common iliac vein, left external iliac vein, left common femoral vein, and superficial femoral vein 9. Stenting of the left external iliac vein with a 16 mm x 40 mm Wallstent 10. Angioplasty of the left common iliac vein, left external iliac vein, and left common femoral vein with a 12 mm angioplasty balloon 11. Angioplasty of the left common iliac vein, and left external iliac vein with a 14 mm angioplasty balloon 12. Angioplasty of the left superficial femoral vein and common femoral vein with an 8 mm angioplasty balloon DATE: 08/03/16 ACADEMIC SUPPORT ASSISTANT: RUBIO REHMAN MD INDICATION: Left lower extremity iliofemoral DVT with significant symptoms including severe pain and swelling. MEDICATIONS: Please see nursing report for full details. DEVICES: 8 mm angioplasty balloon 12 mm angioplasty balloon 14 mm angioplasty balloon 16 mm x 40 mm Wallstent CONTRAST: Please see Piano Sounding Board Matcher report for full details. PROCEDURE: The risks, benefits, and alternatives were discussed with the patient; written informed consent was obtained. The patient's neck was prepped and draped in sterile fashion. The existing catheter and sheath was prepped and draped in a sterile fashion. Fluoroscopy was used to evaluate the position of the thrombolytic catheter which was unchanged into the previous day. The wire and the thrombolytic catheter was removed and digital subtraction angiography was performed demonstrating patency of the distal and mid superficial femoral vein, but unchanged proximal left femoral vein thrombus which was occlusive. Guidewire advanced was passed through the existing catheter and the catheter was removed over the wire and removed. 8 Urdu guide was used with a The Zebra device device and use to select the left common femoral vein. Digital subtraction angiography demonstrated residual thrombus in the left common femoral vein, lower portion of the left external iliac vein, but resolution of most of the thrombus in the left external iliac and common iliac vein with less than 50% thrombus remaining there. There was mild narrowing in the left external iliac vein and left common iliac vein. I then performed aspiration thrombectomy through the left common iliac vein, external iliac vein, common femoral vein, and superficial femoral vein. Large amount of clot was extracted. 8 Urdu AngioJet was advanced over the wire and use to perform mechanical thrombectomy of the left common iliac vein, external iliac vein, common femoral vein, and superficial femoral vein. Digital subtraction angiography was performed demonstrating greater than 50% clot in the left proximal superficial femoral vein and common femoral vein as well as the lower external iliac vein. V18 wire was passed into the left superficial femoral vein. 7 Urdu over the wire Trerotola mechanical thrombectomy device was advanced over the wire to the left common femoral vein and mechanical thrombectomy was performed in the left common femoral vein and external iliac vein. The device would not reach the left superficial femoral vein. Digital subtraction angiography was performed with a catheter in the left superficial femoral vein demonstrating persistent large amount of thrombus in the proximal left superficial femoral vein, but less than 50% clot in the left common femoral vein and lower external iliac vein. 8 mm angioplasty balloon was advanced over the wire and use to perform angioplasty in the left superficial femoral vein, common femoral vein, and external iliac vein. Subsequently a 12 mm angioplasty balloon was used to perform angioplasty in the left common femoral vein, external iliac vein, and common iliac vein. Digital subtraction angiography was performed with the catheter the left superficial femoral vein demonstrating approximately 50% residual clot throughout the left external iliac vein below the stented segment, in the left common femoral vein, and in the left superficial femoral vein. There was some debris noted in the left external iliac and common iliac vein stents. 8 Urdu guide was advanced into the left common iliac and external iliac vein and aspiration thrombectomy was performed. Glidewire advantage was then passed into the left superficial femoral vein. Sheath was exchanged for an 8 Urdu 65 cm [place] destination position of the left superficial femoral vein. 7 Urdu welt stitch cleaner device was advanced through the sheath and mechanical thrombectomy was performed in the left common iliac vein, IVC, and left external iliac vein. Device was removed and aspiration thrombectomy was performed through the sheath. Digital subtraction angiography was performed demonstrating no residual thrombus in the left external iliac vein and common iliac vein. There is no residual thrombus in the IVC. The sheath was then passed into the left common femoral vein. 7 Urdu welt stitch cleaner device was advanced sheath and used to perform mechanical thrombectomy of the left superficial femoral vein and the common femoral vein as well as the lower external iliac vein. Aspiration thrombectomy was then performed. Digital subtraction angiography was then performed demonstrating maybe 10% thrombus in the left common femoral vein, and lower superficial femoral vein. The lower left external iliac vein was severely narrowed and likely the culprit lesion. This area was stented with a 16 mm x 40 mm Wallstent. This was post dilated with a 12 mm angioplasty balloon. 12 mm angioplasty balloon was also used to perform angioplasty of the left external iliac vein and left common iliac vein. 14 mm angioplasty balloon was then used to perform angioplasty of the left external iliac vein, including the stented area, and the left common iliac vein. 8 mm angioplasty balloon was then advanced over the wire into the left superficial femoral vein and angioplasty was performed. Angioplasty was also performed with the 8 mm angioplasty balloon in the left common femoral vein. Wiring catheter uses select the left superficial femoral vein. Digital subtraction angiography was performed demonstrating prompt flow through the left superficial femoral vein into the common femoral vein and into the external iliac and common iliac veins. There is a residual area of debris in the left upper common femoral vein. 12 mm angioplasty balloon was advanced over the wire and used to perform angioplasty of the left upper common femoral vein. Digital subtraction angiography demonstrates resolution of the debris in the upper portion of the left common femoral vein. There is prompt flow into the central veins from the left common femoral vein injection. After reviewing the films, determine that intervention was complete. All wires and catheters and sheaths were removed. Pressure was held until hemostasis was achieved. Pressure dressing applied. Patient was provided 10 mg of Eliquis. Orders for Angiomax discontinuation 2 hours after Eliquis administration. Patient tolerated the procedure well. No immediate postprocedure complication. FINDINGS: Please see procedure note above. IMPRESSION: 1. Successful mechanical thrombectomy of the IVC, left common iliac vein, external iliac vein, common femoral vein, and superficial femoral vein. 2. Successful selection of the left common iliac vein, external iliac vein, common femoral vein, and superficial femoral vein. 3. Successful removal of left lower extremity venous thrombolytic catheter. 4. Successful stenting of the left external iliac vein with a 16 x 40 mm Wallstent. 5. Successful angioplasty of the left common iliac vein, external iliac vein, common femoral vein, and superficial femoral vein.
[2016-08-04] MEDS: ELIQUIS PO SCH ×2 (10:30→23:30)
[2016-08-04] MEDS: PEPCID PO SCH ×2 (10:30→23:31)
--- NOTE | 2016-08-04 10:59 | Progress Note ---
Assessment and Plan Plan: Suggest hematology involvement in her care considering her complex hematological situation and recurrent venous thrombosis. Currently stable cardiac status. Will see PRN. The patient has been seen in conjunction with Dr. Angel who agrees with the assessment and plan of care. - Patient Problems (1) DVT of leg (deep venous thrombosis) Current Visit: Yes Status: Chronic Qualifiers: Affected thrombotic vein of extremity: femoral Laterality: left Chronicity: acute Qualified Code(s): I82.412 - Acute embolism and thrombosis of left femoral vein (2) Atypical chest pain Current Visit: Yes Status: Resolved (3) Hypotension Current Visit: Yes Status: Acute Qualifiers: Hypotension type: H Trimester: T Subjective Date of service: 08/04/16 Principal diagnosis: DVT Interval history: Pt resting in bed, c/o generalized itching and LUE swelling since yesterday evening. Denies any cardiac complaints. VSS. Objective Last Vital Signs Temp 98.0 F 08/04/16 08:00 Pulse 64 08/04/16 08:00 Resp 14 08/04/16 08:00 BP 108/60 08/04/16 08:00 Pulse Ox 100 08/04/16 09:42 - Physical Examination General: No Apparent Distress HEENT: Positive: EOMI, Normocephaly, Mucus Membranes Moist Neck: Positive: neck supple, trachea midline Cardiac: Positive: Reg Rate and Rhythm, S1/S2 Lungs: Positive: clear to auscultation Neuro: Positive: Grossly Intact Abdomen: Positive: Soft, Active Bowel Sounds. Negative: Tender Skin: Positive: Clear. Negative: Rash Musculoskeletal: Normal Range of Motion Extremities: Present: normal. Absent: edema - Labs and Meds CBC 08/04/16 Range/Units 04:56 WBC 6.4 (4.5-11.0) K/mm3 RBC 3.64 L (3.65-5.03) M/mm3 Hgb 10.8 (10.1-14.3) gm/dl Hct 33.4 D (30.3-42.9) % Plt Count 99 L (140-440) K/mm3 Comprehensive Metabolic Panel 08/04/16 Range/Units 04:56 Sodium 141 (137-145) mmol/L Potassium 4.5 (3.6-5.0) mmol/L Chloride 105.2 (98-107) mmol/L Carbon Dioxide 23 (22-30) mmol/L BUN 11 (7-17) mg/dL Creatinine 0.7 (0.7-1.2) mg/dL Glucose 167 H (65-100) mg/dL Calcium 8.5 (8.4-10.2) mg/dL - Imaging and Cardiology EKG: image reviewed Echo: report reviewed - Telemetry EKG Rhythm: Sinus Rhythm - EKG Sinus rhythms and dysrhythmias: sinus bradycardia
--- NOTE | 2016-08-04 11:02 | Progress Note ---
Assessment and Plan 55 y/o female s/p EKOS for LE VTE No new recs, discussed on interdisciplinary rounds, per nursing, vascular may discharge home later today. 1. Follow up vascular recs 2. Pain control 3. Monitor H/H given anticoagulation and risk for bleeding. 4. Will continue to follow along with you. Subjective Date of service: 08/04/16 Interval history: EKOS removed. No complications. Objective - Constitutional Vitals: Vital Signs - 12hr 08/03/16 08/03/16 08/03/16 23:00 23:21 23:31 Temperature Pulse Rate 74 74 76 Pulse Rate [ From Monitor] Respiratory 12 15 14 Rate Blood Pressure 105/50 105/50 104/50 O2 Sat by Pulse 99 99 99 Oximetry 08/03/16 08/04/16 08/04/16 23:54 00:00 00:01 Temperature 98.7 F Pulse Rate 93 H Pulse Rate [ 74 From Monitor] Respiratory 13 13 Rate Blood Pressure 104/47 O2 Sat by Pulse 98 97 Oximetry 08/04/16 08/04/16 08/04/16 00:30 01:00 01:30 Temperature Pulse Rate 82 82 76 Pulse Rate [ From Monitor] Respiratory 13 12 12 Rate Blood Pressure 102/61 107/54 110/53 O2 Sat by Pulse 99 99 99 Oximetry 08/04/16 08/04/16 08/04/16 02:01 02:30 03:00 Temperature Pulse Rate 71 75 78 Pulse Rate [ From Monitor] Respiratory 12 11 L 12 Rate Blood Pressure 84/42 106/55 93/46 O2 Sat by Pulse 99 98 98 Oximetry 08/04/16 08/04/16 08/04/16 03:30 04:00 04:30 Temperature 98.5 F Pulse Rate 82 74 72 Pulse Rate [ 74 From Monitor] Respiratory 10 L 13 11 L Rate Blood Pressure 98/53 101/50 93/51 O2 Sat by Pulse 98 99 97 Oximetry 08/04/16 08/04/16 08/04/16 05:00 05:30 06:00 Temperature Pulse Rate 76 72 69 Pulse Rate [ From Monitor] Respiratory 13 12 11 L Rate Blood Pressure 101/49 100/53 106/57 O2 Sat by Pulse 98 99 99 Oximetry 08/04/16 08/04/16 08/04/16 06:31 07:00 07:30 Temperature Pulse Rate 69 79 72 Pulse Rate [ From Monitor] Respiratory 13 14 13 Rate Blood Pressure 113/57 108/71 102/64 O2 Sat by Pulse 100 99 99 Oximetry 08/04/16 08/04/16 08/04/16 07:58 08:00 09:42 Temperature 98.0 F Pulse Rate 64 Pulse Rate [ 76 From Monitor] Respiratory 14 14 Rate Blood Pressure 108/60 O2 Sat by Pulse 99 100 100 Oximetry General appearance: Present: no acute distress - EENT Eyes: PERRL, EOM intact ENT: hearing intact, clear oral mucosa, dentition normal - Neck Neck: supple, normal ROM - Respiratory Respiratory effort: normal Respiratory: negative: CTA - Breasts Breasts: deferred - Cardiovascular Rhythm: regular Heart Sounds: Present: S1 & S2 Extremities: abnormal (post surgical changes) - Labs CBC & Chem 7: 08/04/16 04:56 08/04/16 04:56 Labs: Abnormal lab results 08/04/16 08/04/16 Range/Units 04:56 04:56 RBC 3.64 L (3.65-5.03) M/mm3 Plt Count 99 L (140-440) K/mm3 Glucose 167 H (65-100) mg/dL
[2016-08-04] MEDS: ZOFRAN IV PRN (11:42)
--- NOTE | 2016-08-04 11:47 | Progress Note ---
Assessment and Plan 55 year old female with extensive left lower extremity DVT with significant symptomatology requiring percutaneous thrombectomy, angioplasty, and stenting. Patient will need to be anticoagulated for life. She had a treatment failure on Xarelto, but this is likely secondary to underlying stenotic lesion. Recommend Eliquis as this has twice a day. Eliquis is 10 mg PO BID x 7 days, then 5 mg PO BID afterwards. Do not recommend Coumadin after thrombectomy as this has a extremely high likelihood of treatment failure. If hematology prefers another medication, consider Lovenox, but this may be lerma prohibitive. Patient is thrombocytopenic. Recommend hematology oncology consult. 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 However, a new HIT panel sent off. Recommend ambulation and out of bed 3 times a day. Subjective Date of service: 08/04/16 Principal diagnosis: DVT Interval history: Status post thrombolysis and successful thrombectomy of the left lower extremity. Feels better. No shortness of breath. Doing well. Left leg is currently with minimal discomfort. Swelling is well controlled with CAMRON hose. Objective - Constitutional Vitals: Vital Signs - 12hr 08/03/16 08/04/16 08/04/16 23:54 00:00 00:01 Temperature 98.7 F Pulse Rate 93 H Pulse Rate [ 74 From Monitor] Respiratory 13 13 Rate Blood Pressure 104/47 O2 Sat by Pulse 98 97 Oximetry 08/04/16 08/04/16 08/04/16 00:30 01:00 01:30 Temperature Pulse Rate 82 82 76 Pulse Rate [ From Monitor] Respiratory 13 12 12 Rate Blood Pressure 102/61 107/54 110/53 O2 Sat by Pulse 99 99 99 Oximetry 08/04/16 08/04/16 08/04/16 02:01 02:30 03:00 Temperature Pulse Rate 71 75 78 Pulse Rate [ From Monitor] Respiratory 12 11 L 12 Rate Blood Pressure 84/42 106/55 93/46 O2 Sat by Pulse 99 98 98 Oximetry 08/04/16 08/04/16 08/04/16 03:30 04:00 04:30 Temperature 98.5 F Pulse Rate 82 74 72 Pulse Rate [ 74 From Monitor] Respiratory 10 L 13 11 L Rate Blood Pressure 98/53 101/50 93/51 O2 Sat by Pulse 98 99 97 Oximetry 08/04/16 08/04/16 08/04/16 05:00 05:30 06:00 Temperature Pulse Rate 76 72 69 Pulse Rate [ From Monitor] Respiratory 13 12 11 L Rate Blood Pressure 101/49 100/53 106/57 O2 Sat by Pulse 98 99 99 Oximetry 08/04/16 08/04/16 08/04/16 06:31 07:00 07:30 Temperature Pulse Rate 69 79 72 Pulse Rate [ From Monitor] Respiratory 13 14 13 Rate Blood Pressure 113/57 108/71 102/64 O2 Sat by Pulse 100 99 99 Oximetry 08/04/16 08/04/16 08/04/16 07:58 08:00 09:42 Temperature 98.0 F Pulse Rate 64 Pulse Rate [ 76 From Monitor] Respiratory 14 14 Rate Blood Pressure 108/60 O2 Sat by Pulse 99 100 100 Oximetry General appearance: Present: no acute distress - EENT Eyes: EOM intact ENT: hearing intact, other (right neck dressing clean, dry, and intact.) - Respiratory Respiratory effort: normal Extremities: no ischemia, pulses symmetrical, normal temperature, normal color - Psychiatric Psychiatric: appropriate mood/affect, cooperative - Labs CBC & Chem 7: 08/04/16 04:56 08/04/16 04:56 Labs: Abnormal lab results 08/04/16 08/04/16 Range/Units 04:56 04:56 RBC 3.64 L (3.65-5.03) M/mm3 Plt Count 99 L (140-440) K/mm3 Glucose 167 H (65-100) mg/dL
[2016-08-04] MEDS ORDERED: TRIPLE ANTIBIOTIC TP ONE (18:47)
[2016-08-04] MEDS: MORPHINE IM PRN ×2 (19:34→23:34)
[2016-08-04] MEDS: THERMAZENE 50 GRAM TP SCH (21:55)
[2016-08-04] MEDS ORDERED: PEPCID IV SCH (22:00)
[2016-08-04] MEDS: BENADRYL PO PRN (23:31)
[2016-08-05] MEDS: MORPHINE IM PRN (02:59)
[2016-08-05 04:55] LABS: Hematocrit 31.3 % (30.3-42.9); Hemoglobin 10.2 gm/dl (10.1-14.3); Mean Corpuscular HGB Conc 33 % (30-34); Mean Corpuscular Hemoglobin 30 pg (28-32); Mean Corpuscular Volume 90 fl (79-97); Red Blood Count 3.46 M/mm3 (3.65-5.03); Red Cell Distribution Width 13.6 % (13.2-15.2); White Blood Count 8.4 K/mm3 (4.5-11.0)
[2016-08-05 05:02] LABS: Platelet Count 91 K/mm3 (140-440)
[2016-08-05 05:22] LABS: Alanine Aminotransferase 9 units/L (7-56); Albumin 3.5 g/dL (3.9-5); Albumin/Globulin Ratio 1.3 %; Alkaline Phosphatase 69 units/L (35-129); Anion Gap 16 mmol/L; BUN/Creatinine Ratio 11.25; Blood Urea Nitrogen 9 mg/dL (7-17); Calcium 8.7 mg/dL (8.4-10.2); Carbon Dioxide 26 mmol/L (22-30); Chloride 100.1 mmol/L (98-107); Glucose 157 mg/dL (65-100); Potassium 4.4 mmol/L (3.6-5.0); Sodium 138 mmol/L (137-145); Total Protein 6.1 g/dL (6.3-8.2)
[2016-08-05] MEDS: BENADRYL PO PRN ×2 (06:04→16:16)
[2016-08-05 06:44] LABS: Basophils % (Manual) 0 % (0.0-1.8); Blastocytes % (Manual) 0 %; Eosinophils % (Manual) 0 % (0.0-4.3)
[2016-08-05 06:45] LABS: Anisocytosis Few; Diff Status Complete; Ovalocytes Few; Platelet Estimate Consistent w Auto
--- NOTE | 2016-08-05 08:25 | Progress Note ---
Assessment and Plan - Patient Problems (1) DVT of leg (deep venous thrombosis) Current Visit: Yes Status: Chronic Qualifiers: Affected thrombotic vein of extremity: femoral Laterality: left Chronicity: acute Qualified Code(s): I82.412 - Acute embolism and thrombosis of left femoral vein Plan to address problem: Continue Eliquis. Hematology consult appreciated. Awaiting further input from Vascular surgery (2) Thrombocytopenia Current Visit: Yes Status: Acute Plan to address problem: Possibly related to HIT. Possibly related to IV Heparin. Hematology consult appreciated (3) Allergic reaction Current Visit: Yes Status: Acute Qualifiers: Encounter type: E Plan to address problem: Continue Benadryl and steroids History Interval history: Patient feels ok. Complaining of itching Hospitalist Physical - Constitutional Vitals: Temp Pulse Resp BP Pulse Ox 99.2 F 80 15 121/66 94 08/05/16 04:00 08/05/16 06:30 08/05/16 06:30 08/05/16 06:30 08/05/16 06:30 General appearance: Present: no acute distress - EENT Eyes: Present: PERRL, EOM intact ENT: hearing intact, clear oral mucosa - Neck Neck: Present: supple, normal ROM - Respiratory Respiratory effort: normal Respiratory: bilateral: CTA - Cardiovascular Rhythm: regular Heart Sounds: Present: S1 & S2 - Abdominal General gastrointestinal: soft, non-tender, non-distended, normal bowel sounds - Integumentary Integumentary: Present: rash - Psychiatric Psychiatric: appropriate mood/affect, intact judgment & insight - Neurologic Neurologic: CNII-XII intact, moves all extremities Results - Labs CBC & Chem 7: 08/05/16 04:06 08/05/16 03:54 Labs: Laboratory Last Values WBC 8.4 K/mm3 (4.5-11.0) 08/05/16 04:06 RBC 3.46 M/mm3 (3.65-5.03) L 08/05/16 04:06 Hgb 10.2 gm/dl (10.1-14.3) 08/05/16 04:06 Hct 31.3 % (30.3-42.9) 08/05/16 04:06 MCV 90 fl (79-97) 08/05/16 04:06 MCH 30 pg (28-32) 08/05/16 04:06 MCHC 33 % (30-34) 08/05/16 04:06 RDW 13.6 % (13.2-15.2) 08/05/16 04:06 Plt Count 91 K/mm3 (140-440) L 08/05/16 04:06 Lymph % (Auto) 13.5 % (13.4-35.0) 08/03/16 09:33 [place] % (Auto) 3.2 % (0.0-7.3) 08/03/16 09:33 Eos % (Auto) 0.3 % (0.0-4.3) 08/03/16 09:33 Baso % (Auto) 0.1 % (0.0-1.8) 08/03/16 09:33 Lymph # 0.6 K/mm3 (1.2-5.4) L 08/03/16 09:33 [place] # 0.1 K/mm3 (0.0-0.8) 08/03/16 09:33 Eos # 0.0 K/mm3 (0.0-0.4) 08/03/16 09:33 Baso # 0.0 K/mm3 (0.0-0.1) 08/03/16 09:33 Add Manual Diff Complete 08/05/16 04:06 Total Counted 100 08/05/16 04:06 Seg Neutrophils % Etl Lead 08/05/16 04:06 Seg Neuts % (Manual) 76.0 % (40.0-70.0) H 08/05/16 04:06 Band Neutrophils % 13.0 % 08/05/16 04:06 Lymphocytes % (Manual) 8.0 % (13.4-35.0) L 08/05/16 04:06 Reactive Lymphs % (Man) 0 % 08/05/16 04:06 Monocytes % (Manual) 3.0 % (0.0-7.3) 08/05/16 04:06 Eosinophils % (Manual) 0 % (0.0-4.3) 08/05/16 04:06 Basophils % (Manual) 0 % (0.0-1.8) 08/05/16 04:06 Metamyelocytes % 0 % 08/05/16 04:06 Myelocytes % 0 % 08/05/16 04:06 Promyelocytes % 0 % 08/05/16 04:06 Blast Cells % 0 % 08/05/16 04:06 Nucleated RBC % Not Reportable 08/05/16 04:06 Seg Neutrophils # 3.8 K/mm3 (1.8-7.7) 08/03/16 09:33 Seg Neutrophils # Man 6.4 K/mm3 (1.8-7.7) 08/05/16 04:06 Band Neutrophils # 1.1 K/mm3 08/05/16 04:06 Lymphocytes # (Manual) 0.7 K/mm3 (1.2-5.4) L 08/05/16 04:06 Abs React Lymphs (Man) 0.0 K/mm3 08/05/16 04:06 Monocytes # (Manual) 0.3 K/mm3 (0.0-0.8) 08/05/16 04:06 Eosinophils # (Manual) 0.0 K/mm3 (0.0-0.4) 08/05/16 04:06 Basophils # (Manual) 0.0 K/mm3 (0.0-0.1) 08/05/16 04:06 Metamyelocytes # 0.0 K/mm3 08/05/16 04:06 Myelocytes # 0.0 K/mm3 08/05/16 04:06 Promyelocytes # 0.0 K/mm3 08/05/16 04:06 Blast Cells # 0.0 K/mm3 08/05/16 04:06 WBC Morphology Not Reportable 08/05/16 04:06 Hypersegmented Neuts Not Reportable 08/05/16 04:06 Hyposegmented Neuts Not Reportable 08/05/16 04:06 Hypogranular Neuts Not Reportable 08/05/16 04:06 Smudge Cells Not Reportable 08/05/16 04:06 Toxic Granulation Not Reportable 08/05/16 04:06 Toxic Vacuolation Not Reportable 08/05/16 04:06 Dohle Bodies Not Reportable 08/05/16 04:06 Pelger-Huet Anomaly Not Reportable 08/05/16 04:06 Martina Rods Not Reportable 08/05/16 04:06 Platelet Estimate Consistent w auto 08/05/16 04:06 Clumped Platelets Not Reportable 08/05/16 04:06 Plt Clumps, EDTA Not Reportable 08/05/16 04:06 Large Platelets Not Reportable 08/05/16 04:06 Giant Platelets Not Reportable 08/05/16 04:06 Platelet Satelliting Not Reportable 08/05/16 04:06 Plt Morphology Comment Not Reportable 08/05/16 04:06 RBC Morphology Not Reportable 08/05/16 04:06 Dimorphic RBCs Not Reportable 08/05/16 04:06 Polychromasia Not Reportable 08/05/16 04:06 Hypochromasia Not Reportable 08/05/16 04:06 Poikilocytosis Not Reportable 08/05/16 04:06 Anisocytosis Few 08/05/16 04:06 Microcytosis Not Reportable 08/05/16 04:06 Macrocytosis Not Reportable 08/05/16 04:06 Spherocytes Not Reportable 08/05/16 04:06 Pappenheimer Bodies Not Reportable 08/05/16 04:06 Sickle Cells Not Reportable 08/05/16 04:06 Target Cells Not Reportable 08/05/16 04:06 Tear Drop Cells Not Reportable 08/05/16 04:06 Ovalocytes Few 08/05/16 04:06 Helmet Cells Not Reportable 08/05/16 04:06 [place] Bodies Not Reportable 08/05/16 04:06 Goodman Rings Not Reportable 08/05/16 04:06 [place] Cells Not Reportable 08/05/16 04:06 Bite Cells Not Reportable 08/05/16 04:06 Crenated Cell Not Reportable 08/05/16 04:06 Elliptocytes Not Reportable 08/05/16 04:06 Acanthocytes (Spur) Not Reportable 08/05/16 04:06 Rouleaux Not Reportable 08/05/16 04:06 Hemoglobin C Crystals Not Reportable 08/05/16 04:06 Schistocytes Not Reportable 08/05/16 04:06 Malaria parasites Not Reportable 08/05/16 04:06 Adrian Bodies Not Reportable 08/05/16 04:06 Hem Pathologist Commnt No 08/05/16 04:06 PT 16.9 Sec. (12.2-14.9) H 08/02/16 Unknown INR 1.38 (0.87-1.13) H 08/02/16 Unknown APTT 95.8 Sec. (24.2-36.6) H* 08/02/16 Unknown Fibrinogen 177 mg/dl (211-480) L 08/03/16 09:00 Heparin Anti-Xa Level 0.19 U.I./ml (0.3-0.7) L 08/03/16 09:00 Sodium 138 mmol/L (137-145) 08/05/16 03:54 Potassium 4.4 mmol/L (3.6-5.0) 08/05/16 03:54 Chloride 100.1 mmol/L (98-107) 08/05/16 03:54 Carbon Dioxide 26 mmol/L (22-30) 08/05/16 03:54 Anion Gap 16 mmol/L 08/05/16 03:54 BUN 9 mg/dL (7-17) 08/05/16 03:54 Creatinine 0.8 mg/dL (0.7-1.2) 08/05/16 03:54 Estimated GFR > 60 ml/min 08/05/16 03:54 BUN/Creatinine Ratio 11.25 % 08/05/16 03:54 Glucose 157 mg/dL (65-100) H 08/05/16 03:54 Calcium 8.7 mg/dL (8.4-10.2) 08/05/16 03:54 Total Bilirubin 0.20 mg/dL (0.1-1.2) 08/05/16 03:54 Direct Bilirubin < 0.2 mg/dL (0-0.2) 08/02/16 10:37 Indirect Bilirubin 0.0 mg/dL 08/02/16 10:37 AST 15 units/L (5-40) 08/05/16 03:54 ALT 9 units/L (7-56) 08/05/16 03:54 Alkaline Phosphatase 69 units/L (35-129) 08/05/16 03:54 Total Creatine Kinase 57 units/L (30-135) 08/03/16 02:57 CK-MB (CK-2) < 1.0 ng/mL (0.0-4.0) 08/03/16 02:57 CK-MB (CK-2) Rel Index 1.7 (0-4) 08/03/16 02:57 Troponin T < 0.010 ng/mL (0.00-0.029) 08/03/16 02:57 Total Protein 6.1 g/dL (6.3-8.2) L 08/05/16 03:54 Albumin 3.5 g/dL (3.9-5) L 08/05/16 03:54 Albumin/Globulin Ratio 1.3 % 08/05/16 03:54 Urine Color Yellow (Yellow) 08/01/16 21:30 Urine Turbidity Clear (Clear) 08/01/16 21:30 Urine pH 5.0 (5.0-7.0) 08/01/16 21:30 Ur Specific [place] 1.018 (1.003-1.030) 08/01/16 21:30 Urine Protein <15 mg/dl mg/dL (Negative) 08/01/16 21:30 Urine Glucose (UA) Neg mg/dL (Negative) 08/01/16 21:30 Urine Ketones Neg mg/dL (Negative) 08/01/16 21:30 Urine Blood Neg (Negative) 08/01/16 21:30 Urine Nitrite Neg (Negative) 08/01/16 21:30 Urine Bilirubin Neg (Negative) 08/01/16 21:30 Urine Urobilinogen < 2.0 mg/dL (<2.0) 08/01/16 21:30 Ur Leukocyte Esterase Tr (Negative) 08/01/16 21:30 Urine WBC (Auto) < 1.0 /HPF (0.0-6.0) 08/01/16 21:30 Urine RBC (Auto) 2.0 /HPF (0.0-6.0) 08/01/16 21:30 U Epithel Cells (Auto) 2.0 /HPF (0-13.0) 08/01/16 21:30 Urine Mucus 3+ /HPF 08/01/16 21:30 Blood Type B NEGATIVE 08/02/16 Unknown Antibody Screen TNR 08/02/16 Unknown ANGY Antibody Screen Negative 08/02/16 Unknown
--- NOTE | 2016-08-05 10:03 | XRay Report ---
AP CHEST: HISTORY: PICC placement AP view of the chest demonstrates a normal mediastinal and cardiac contour with clear lungs and normal bony and soft tissue structures. Left arm PICC is in good position terminating in the lower SVC. IMPRESSION: Unremarkable AP chest.
[2016-08-05] MEDS: BENADRYL IV PRN ×2 (10:58→23:40)
[2016-08-05] MEDS: ELIQUIS PO SCH ×2 (10:59→22:16)
--- NOTE | 2016-08-05 10:59 | Progress Note ---
Assessment and Plan 55 y/o female s/p EKOS for LE VTE No new recs, discussed on interdisciplinary rounds, per nursing, vascular may discharge home later today. 1. Follow up vascular recs 2. Pain control 3. Monitor H/H given anticoagulation and risk for bleeding. 4. Will continue to follow along with you. Subjective Date of service: 08/05/16 Principal diagnosis: DVT Interval history: Discharge held, waiting for meds on yesterday. Cleared today for discharge. No other events. Objective - Constitutional Vitals: Vital Signs - 12hr 08/04/16 08/04/16 08/04/16 23:01 23:30 23:34 Temperature Pulse Rate 101 H 99 H Pulse Rate [ From Monitor] Respiratory 16 17 20 Rate Respiratory Rate [LEFT THIGH] Blood Pressure 134/64 130/50 O2 Sat by Pulse 97 98 Oximetry 08/05/16 08/05/16 08/05/16 00:00 00:04 00:30 Temperature 102.0 F H Pulse Rate 97 H 93 H Pulse Rate [ From Monitor] Respiratory 18 20 19 Rate Respiratory 17 Rate [LEFT THIGH] Blood Pressure 126/62 124/67 O2 Sat by Pulse 100 99 Oximetry 08/05/16 08/05/16 08/05/16 00:40 01:01 01:30 Temperature 99.0 F Pulse Rate 103 H 100 H Pulse Rate [ From Monitor] Respiratory 19 19 Rate Respiratory Rate [LEFT THIGH] Blood Pressure 124/67 147/79 O2 Sat by Pulse 96 98 Oximetry 08/05/16 08/05/16 08/05/16 02:00 02:30 02:59 Temperature Pulse Rate 94 H 94 H Pulse Rate [ From Monitor] Respiratory 16 17 20 Rate Respiratory 17 Rate [LEFT THIGH] Blood Pressure 121/69 110/54 O2 Sat by Pulse 94 Oximetry 08/05/16 08/05/16 08/05/16 03:00 03:29 03:30 Temperature Pulse Rate 92 H 91 H Pulse Rate [ From Monitor] Respiratory 17 20 16 Rate Respiratory Rate [LEFT THIGH] Blood Pressure 105/54 105/49 O2 Sat by Pulse 93 91 Oximetry 08/05/16 08/05/16 08/05/16 04:00 04:01 04:30 Temperature 99.2 F Pulse Rate 99 H 84 Pulse Rate [ From Monitor] Respiratory 18 17 Rate Respiratory Rate [LEFT THIGH] Blood Pressure 105/49 105/49 O2 Sat by Pulse 97 95 Oximetry 08/05/16 08/05/16 08/05/16 04:56 05:00 05:20 Temperature Pulse Rate 84 79 Pulse Rate [ From Monitor] Respiratory 24 Rate Respiratory 17 Rate [LEFT THIGH] Blood Pressure 105/48 O2 Sat by Pulse 93 Oximetry 08/05/16 08/05/16 08/05/16 05:30 06:00 06:30 Temperature Pulse Rate 86 84 80 Pulse Rate [ From Monitor] Respiratory 13 15 15 Rate Respiratory Rate [LEFT THIGH] Blood Pressure 105/57 112/55 121/66 O2 Sat by Pulse 93 95 94 Oximetry 08/05/16 08/05/16 08/05/16 07:00 07:31 08:00 Temperature 98.8 F Pulse Rate 79 90 Pulse Rate [ From Monitor] Respiratory 16 13 Rate Respiratory Rate [LEFT THIGH] Blood Pressure 114/62 114/62 O2 Sat by Pulse 94 Oximetry 08/05/16 08/05/16 08/05/16 08:30 09:31 10:00 Temperature Pulse Rate 75 Pulse Rate [ 90 From Monitor] Respiratory 14 15 Rate Respiratory Rate [LEFT THIGH] Blood Pressure 114/62 135/76 O2 Sat by Pulse 98 100 99 Oximetry 08/05/16 10:30 Temperature Pulse Rate 84 Pulse Rate [ From Monitor] Respiratory 17 Rate Respiratory Rate [LEFT THIGH] Blood Pressure 129/78 O2 Sat by Pulse 99 Oximetry - Labs CBC & Chem 7: 08/05/16 04:06 08/05/16 03:54 Labs: Abnormal lab results 08/05/16 08/05/16 Range/Units 03:54 04:06 RBC 3.46 L (3.65-5.03) M/mm3 Plt Count 91 L (140-440) K/mm3 Seg Neuts % (Manual) 76.0 H (40.0-70.0) % Lymphocytes % (Manual) 8.0 L (13.4-35.0) % Lymphocytes # (Manual) 0.7 L (1.2-5.4) K/mm3 Glucose 157 H (65-100) mg/dL Total Protein 6.1 L (6.3-8.2) g/dL Albumin 3.5 L (3.9-5) g/dL
[2016-08-05] MEDS: THERMAZENE 50 GRAM TP SCH ×2 (11:00→22:45)
[2016-08-05] MEDS: MORPHINE IV PRN ×3 (11:00→23:41)
[2016-08-05] MEDS: PEPCID PO SCH ×2 (11:01→22:17)
--- NOTE | 2016-08-05 11:34 | Progress Note ---
Assessment and Plan The patient is status post thrombectomy of her left lower extremity. She has significant improvement in her left partially swollen and pain. She is currently on Eloquis for anticoagulation and we have provided her with a 5 weeks supply of samples as well as a coupon for 30 free days. Additionally I have instructed her to go to their website for gradual assistance with obtaining the drug. The patient has expressed understanding. The patient is clinically ready for discharge from a vascular standpoint. Subjective Date of service: 08/05/16 Principal diagnosis: DVT Interval history: The patient states that her left leg feels significantly better. She has no complaints about her legs. She does continue to complain of redness of her chest and neck secondary to an allergic reaction that is thought to be the heparin. Objective - Constitutional Vitals: Vital Signs - 12hr 08/04/16 08/04/16 08/05/16 23:30 23:34 00:00 Temperature 102.0 F H Pulse Rate 99 H 97 H Pulse Rate [ From Monitor] Respiratory 17 20 18 Rate Respiratory Rate [LEFT THIGH] Blood Pressure 130/50 126/62 O2 Sat by Pulse 98 100 Oximetry 08/05/16 08/05/16 08/05/16 00:04 00:30 00:40 Temperature 99.0 F Pulse Rate 93 H Pulse Rate [ From Monitor] Respiratory 20 19 Rate Respiratory 17 Rate [LEFT THIGH] Blood Pressure 124/67 O2 Sat by Pulse 99 Oximetry 08/05/16 08/05/16 08/05/16 01:01 01:30 02:00 Temperature Pulse Rate 103 H 100 H 94 H Pulse Rate [ From Monitor] Respiratory 19 19 16 Rate Respiratory Rate [LEFT THIGH] Blood Pressure 124/67 147/79 121/69 O2 Sat by Pulse 96 98 Oximetry 08/05/16 08/05/16 08/05/16 02:30 02:59 03:00 Temperature Pulse Rate 94 H 92 H Pulse Rate [ From Monitor] Respiratory 17 20 17 Rate Respiratory 17 Rate [LEFT THIGH] Blood Pressure 110/54 105/54 O2 Sat by Pulse 94 93 Oximetry 08/05/16 08/05/16 08/05/16 03:29 03:30 04:00 Temperature 99.2 F Pulse Rate 91 H Pulse Rate [ From Monitor] Respiratory 20 16 Rate Respiratory Rate [LEFT THIGH] Blood Pressure 105/49 O2 Sat by Pulse 91 Oximetry 08/05/16 08/05/16 08/05/16 04:01 04:30 04:56 Temperature Pulse Rate 99 H 84 84 Pulse Rate [ From Monitor] Respiratory 18 17 Rate Respiratory Rate [LEFT THIGH] Blood Pressure 105/49 105/49 O2 Sat by Pulse 97 95 Oximetry 08/05/16 08/05/16 08/05/16 05:00 05:20 05:30 Temperature Pulse Rate 79 86 Pulse Rate [ From Monitor] Respiratory 24 13 Rate Respiratory 17 Rate [LEFT THIGH] Blood Pressure 105/48 105/57 O2 Sat by Pulse 93 93 Oximetry 08/05/16 08/05/16 08/05/16 06:00 06:30 07:00 Temperature Pulse Rate 84 80 79 Pulse Rate [ From Monitor] Respiratory 15 15 16 Rate Respiratory Rate [LEFT THIGH] Blood Pressure 112/55 121/66 114/62 O2 Sat by Pulse 95 94 94 Oximetry 08/05/16 08/05/16 08/05/16 07:31 08:00 08:30 Temperature 98.8 F Pulse Rate 90 Pulse Rate [ 90 From Monitor] Respiratory 13 14 Rate Respiratory Rate [LEFT THIGH] Blood Pressure 114/62 O2 Sat by Pulse 98 Oximetry 08/05/16 08/05/16 08/05/16 09:31 10:00 10:30 Temperature Pulse Rate 75 84 Pulse Rate [ From Monitor] Respiratory 15 17 Rate Respiratory Rate [LEFT THIGH] Blood Pressure 114/62 135/76 129/78 O2 Sat by Pulse 100 99 99 Oximetry General appearance: Present: no acute distress - Neck Neck: supple, other (some redness of the skin, skin tear on the right posterior neck and anterior chest secondary to tape) - Respiratory Respiratory effort: normal - Breasts Breasts: deferred - Cardiovascular Rhythm: regular Extremities: no ischemia Extremity abnormal: edema (bilateral compression hose in place) - Gastrointestinal General gastrointestinal: Present: soft, non-tender, tender - Musculoskeletal Musculoskeletal: strength equal bilaterally - Labs CBC & Chem 7: 08/05/16 04:06 08/05/16 03:54 Labs: Abnormal lab results 08/05/16 08/05/16 Range/Units 03:54 04:06 RBC 3.46 L (3.65-5.03) M/mm3 Plt Count 91 L (140-440) K/mm3 Seg Neuts % (Manual) 76.0 H (40.0-70.0) % Lymphocytes % (Manual) 8.0 L (13.4-35.0) % Lymphocytes # (Manual) 0.7 L (1.2-5.4) K/mm3 Glucose 157 H (65-100) mg/dL Total Protein 6.1 L (6.3-8.2) g/dL Albumin 3.5 L (3.9-5) g/dL
--- NOTE | 2016-08-05 11:52 | Consultation ---
REFERRING PHYSICIAN: Jose Khan MD REASON FOR CONSULTATION: 1. Hypercoagulable state. 2. Thrombocytopenia. HISTORY OF PRESENT ILLNESS: The patient is a 55-year-old female who was admitted on 08/01/2016 with an acute deep venous thrombosis. 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 The patient around then was apparently told that she had heparin-induced thrombocytopenia, but Dr. Khan was able to get record from [place], where she did not have heparin-induced thrombocytopenia. The patient 3 years ago had been on Coumadin, but recently was on Xarelto, and had been taking it regularly and started having severe left lower extremity pain. The Doppler did show acute deep venous thrombosis in spite of anticoagulation. She was admitted to the hospital and underwent thrombectomy. She was given heparin during the procedure because of the fact that she did not have heparin-induced thrombocytopenia. She also was placed on ____ during this admission. She has been put on Eliquis since she had Xarelto failure. Platelets, however, have dropped from admission of about 200,000 to 99,000 today. Heparin-induced thrombocytopenia assay has been sent, the results are pending. The patient currently feels fair, does have itching, which she has had now for about a day or so. Otherwise the patient feels fair. PAST MEDICAL HISTORY: Positive for multiple deep venous thromboses in the past which started on 2003. In 2014, she developed work-related injury with relative immobility. She also has fibromyalgia. PAST SURGICAL HISTORY: 1. Hysterectomy. 2. Orthopaedic debridement of the leg wound in the past. SOCIAL HISTORY: She does not smoke or drink. PHYSICAL EXAMINATION: GENERAL: The patient is awake, alert and oriented. HEENT: Unremarkable. CHEST: Clear. CARDIOVASCULAR: Regular rate and rhythm. ABDOMEN: Soft. EXTREMITIES: Some edema in the left lower extremity. LABORATORY DATA: Today's white count is 6.4, hemoglobin 10.8, platelets 99,000. Other pertinent labs show creatinine of 0.7. ASSESSMENT: 1. Recurrent deep venous thrombosis in spite of Xarelto, status post EKOS procedure. 2. Thrombocytopenia with previous history of the patient being told that she had heparin allergy, although never documented and in fact there is a HIT negative documentation in the chart from 2014. 3. Rash. RECOMMENDATIONS: At this time, we will go ahead and agree with heparin-induced thrombocytopenia assay. Agree with Latoya. Dr. Khan and I discussed the case and he does not recommend Coumadin after thrombectomy as it has a high likelihood of treatment failure. We will follow up on the heparin induced thrombocytopenia assay and monitor counts. Check CBC on a daily basis. JOB# [id number] BEATRICES/NTS
--- NOTE | 2016-08-05 13:51 | Hem/Onc Progress Note ---
Subjective Date of service: 08/05/16 Interval history: Patient doing well . Platelet count is 91. Plan is to discharge on Eliquis. Recommend f/u with Dr. Pedro to check her platelet count next week. Patient advised to call us if she has trouble obtaining Eliquis Objective - Constitutional Vitals: Last Vital Signs Temp 98.8 F 08/05/16 08:00 Pulse 73 08/05/16 12:30 Resp 14 08/05/16 12:30 BP 138/78 08/05/16 12:30 Pulse Ox 98 08/05/16 12:30 - Labs Lab Results: Laboratory Results - last 24 hr 08/05/16 08/05/16 03:54 04:06 WBC 8.4 RBC 3.46 L Hgb 10.2 Hct 31.3 MCV 90 MCH 30 MCHC 33 RDW 13.6 Plt Count 91 L Add Manual Diff Complete Total Counted 100 Seg Neutrophils % Online Merchandising Coordinator Seg Neuts % (Manual) 76.0 H Band Neutrophils % 13.0 Lymphocytes % (Manual) 8.0 L Reactive Lymphs % (Man) 0 Monocytes % (Manual) 3.0 Eosinophils % (Manual) 0 Basophils % (Manual) 0 Metamyelocytes % 0 Myelocytes % 0 Promyelocytes % 0 Blast Cells % 0 Nucleated RBC % Not Reportable Seg Neutrophils # Man 6.4 Band Neutrophils # 1.1 Lymphocytes # (Manual) 0.7 L Abs React Lymphs (Man) 0.0 Monocytes # (Manual) 0.3 Eosinophils # (Manual) 0.0 Basophils # (Manual) 0.0 Metamyelocytes # 0.0 Myelocytes # 0.0 Promyelocytes # 0.0 Blast Cells # 0.0 WBC Morphology Not Reportable Hypersegmented Neuts Not Reportable Hyposegmented Neuts Not Reportable Hypogranular Neuts Not Reportable Smudge Cells Not Reportable Toxic Granulation Not Reportable Toxic Vacuolation Not Reportable Dohle Bodies Not Reportable Pelger-Huet Anomaly Not Reportable Martina Rods Not Reportable Platelet Estimate Consistent w auto Clumped Platelets Not Reportable Plt Clumps, EDTA Not Reportable Large Platelets Not Reportable Giant Platelets Not Reportable Platelet Satelliting Not Reportable Plt Morphology Comment Not Reportable RBC Morphology Not Reportable Dimorphic RBCs Not Reportable Polychromasia Not Reportable Hypochromasia Not Reportable Poikilocytosis Not Reportable Anisocytosis Few Microcytosis Not Reportable Macrocytosis Not Reportable Spherocytes Not Reportable Pappenheimer Bodies Not Reportable Sickle Cells Not Reportable Target Cells Not Reportable Tear Drop Cells Not Reportable Ovalocytes Few Helmet Cells Not Reportable Mata[place] Bodies Not Reportable Ira Rings Not Reportable Parthenon Cells Not Reportable Bite Cells Not Reportable Crenated Cell Not Reportable Elliptocytes Not Reportable Acanthocytes (Spur) Not Reportable Rouleaux Not Reportable Hemoglobin C Crystals Not Reportable Schistocytes Not Reportable Malaria parasites Not Reportable Adrian Bodies Not Reportable Hem Pathologist Commnt No Sodium 138 Potassium 4.4 Chloride 100.1 Carbon Dioxide 26 Anion Gap 16 BUN 9 Creatinine 0.8 Estimated GFR > 60 BUN/Creatinine Ratio 11.25 Glucose 157 H Calcium 8.7 Total Bilirubin 0.20 AST 15 ALT 9 Alkaline Phosphatase 69 Total Protein 6.1 L Albumin 3.5 L Albumin/Globulin Ratio 1.3
[2016-08-05] MEDS: ALUM-MAG HYDROX-SIMETH 200-200-20MG/5ML PO PRN ×2 (14:21→19:23)
[2016-08-05] MEDS: COLACE PO SCH ×2 (17:09→22:16)
[2016-08-06 06:26] VITALS: BP 124/72
[2016-08-06 07:27] LABS: Basophils % (Auto) 0.2 % (0.0-1.8); Eosinophils % (Auto) 3.4 % (0.0-4.3); Hematocrit 29.4 % (30.3-42.9); Hemoglobin 9.4 gm/dl (10.1-14.3); Mean Corpuscular HGB Conc 32 % (30-34); Mean Corpuscular Hemoglobin 29 pg (28-32); Mean Corpuscular Volume 91 fl (79-97); Red Blood Count 3.23 M/mm3 (3.65-5.03); Red Cell Distribution Width 13.7 % (13.2-15.2)
[2016-08-06 07:33] LABS: Platelet Count 86 K/mm3 (140-440)
[2016-08-06] MEDS: MORPHINE IV PRN ×2 (07:40→12:38)
[2016-08-06] MEDS: BENADRYL PO PRN (07:41)
--- NOTE | 2016-08-06 09:08 | Discharge Summary ---
Providers - Providers Date of Admission: 08/02/16 07:32 Date of discharge: 08/06/16 Attending physician: EYAD KABA 08/02/16 18:52 Consult to Physician [CONS] Routine Consulting Provider: YONY LAKE Reason For Exam: Chest pain Place consult to:: Dr Lake Notified:: Gt Phone number called:: [phone] Was contact made?: Yes If yes, spoke with:: gt Time called:: 19:09 08/02/16 18:57 Consult to Physician [CONS] Routine Consulting Provider: NASIR LIU Reason For Exam: Critical Care Admit Place consult to:: Dr Liu Notified:: Poppy Phone number called:: [phone] Was contact made?: Yes If yes, spoke with:: Poppy Dietz called:: 19:03 08/02/16 19:00 Consult to Physician [CONS] Routine Consulting Provider: NASIR LIU Reason For Exam: icu admission Place consult to:: Dr Liu Notified:: Poppy Phone number called:: [phone] Was contact made?: No If yes, spoke with:: Poppy Dietz called:: 19:10 08/04/16 11:57 Consult to Physician [CONS] Routine Consulting Provider: FREEDOM MOLINA Reason For Exam: thrombocytopenia Place consult to:: Dr Molina's Office Notified:: Alexandra Phone number called:: [phone] Was contact made?: Yes If yes, spoke with:: Alexandra Dietz called:: 12:33 08/04/16 19:26 PICC Line Insertion [Consult to PICC Line RN] [CONS] Routine Reason For Exam: MD order Type Line:: PICC 08/04/16 19:30 Consult to Wound/ET Nurse [CONS] Urgent Reason For Exam: wound eval-rash total body, right neck seeNN 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 She has had multiple interventions to her lower extremities on account of DVT. She was previously on Coumadin and subsequently converted to Xarelto. About 2 weeks ago , she developed pain in the left lower extremity again. Imaging studies confirmed recurrent DVT. Patient underwent percutaneous thrombectomy, angioplasty, and stenting. On the morning of 08/03/16, she underwent mechanical thrombectomy of her left lower extremity with catheter administered thrombolytic therapy. While in the ICU postoperatively, she complained of right -sided, sharp, chest pain with no radiation. Patient was seen by cardiology in consultation. Cardiac enzymes were negative. She was seen by pulmonary and hematology consultation. Hematology was in agreement with discharge on eliquis. Patient has a half further follow-up this week with hematology with checks on her platelet count. Discharge medication of Eliquis 10 mg PO BID x 7 days, then 5 mg PO BID afterwards. Vascular surgery reports that they have provided her with a 5 weeks supply of samples as well as a coupon for 30 free days. Additionally, Dr. Sam instructed her to go to their website for gradual assistance with obtaining the drug. The patient has expressed understanding. The patient is clinically ready for discharge. Dedicated discharge time 35 minutes. Disposition: DISCHARGED TO HOME OR SELFCARE Time spent for discharge: 35 - Discharge Diagnoses (1) Thrombocytopenia Status: Acute (2) DVT of leg (deep venous thrombosis) Status: Chronic Qualifiers: Affected thrombotic vein of extremity: femoral Laterality: left Chronicity: acute Qualified Code(s): I82.412 - Acute embolism and thrombosis of left femoral vein (3) DVT, bilateral lower limbs Status: Acute Qualifiers: Affected thrombotic vein of extremity: A Chronicity: C (4) Anemia Status: Chronic Qualifiers: Anemia type: A Iron deficiency anemia type: I Vitamin B12 deficiency anemia type: V Folate deficiency anemia type: F Bone marrow failure anemia type: B Hemolytic anemia type: H Other causes of anemia: O Core Measure Documentation - Palliative Care Palliative Care/ Comfort Measures: Not Applicable - Core Measures Any of the following diagnoses?: DVT/PE - VTE Discharge Requirements Deep Vein Thrombosis/Pulmonary Embolism Present on Admission: Yes Has pt received <5 days of overlap therapy or INR<2.0: No Anticoagulant overlap therapy prescribed at discharge: No Contraindication No Overlap Therapy order at DC: Not Indicated Exam - Constitutional Vitals: Temp Pulse Resp BP Pulse Ox 98 F 63 20 124/72 95 0514/17 06:25 08/06/16 06:25 08/06/16 06:25 08/06/16 06:25 08/06/16 06:25 General appearance: Present: no acute distress, well-nourished - EENT Eyes: Present: PERRL ENT: hearing intact, clear oral mucosa - Neck Neck: Present: supple, normal ROM - Respiratory Respiratory effort: normal Respiratory: bilateral: CTA - Cardiovascular Heart Sounds: Present: S1 & S2. Absent: rub, click - Extremities Extremities: pulses symmetrical, No edema Peripheral Pulses: within normal limits - Abdominal General gastrointestinal: Present: soft, non-tender, non-distended, normal bowel sounds Female genitourinary: Present: normal - Integumentary Integumentary: Present: clear, warm, dry - Musculoskeletal Musculoskeletal: gait normal, strength equal bilaterally - Psychiatric Psychiatric: appropriate mood/affect, intact judgment & insight - Neurologic Neurologic: CNII-XII intact, moves all extremities Plan Activity: no restrictions Weight Bearing Status: Weight Bear as Tolerated Diet: regular Wound: per your surgeon's advice Follow up with: PRIMARY CARE, [Primary Care Provider] - 3-5 Days ALANIS SAM MD [Staff Physician] - 7 Days FREEDOM MOLINA MD [Staff Physician] - 3 Days Prescriptions: Apixaban [Eliquis] 5 mg PO BID #30 tablet Apixaban [Eliquis] 10 mg PO Q12HR #8 tablet HYDROcodone/APAP 5-325 [[place]ola 5-325 mg TAB] 2 each PO Q6H PRN #20 tablet PRN Reason: Pain, Moderate (4-6)
[2016-08-06] MEDS: PEPCID PO SCH (10:06)
[2016-08-06] MEDS: COLACE PO SCH (10:06)
[2016-08-06] MEDS: ELIQUIS PO SCH (10:06)
[2016-08-06] MEDS: ZOFRAN IV PRN (10:06)
[2016-08-06] MEDS: THERMAZENE 50 GRAM TP SCH (12:16)
[2016-08-06] MEDS: BENADRYL IV PRN (12:21)
== END 2016-08-06 17:27 | disposition home or self-care (01) | DRG 271 ==
LOC: ED 20:45 → 3A 08-02 07:32 → CC1 08-02 15:48 → 4A 08-05 15:21
PROVIDERS: ADMIT Internal Medicine; ATTEND Hospitalist
PROC: B543ZZA Ultrasonography of Right Jugular Veins, Guidance (ICD-10-PCS; principal; 2016-08-04)
PROC: 06CD3ZZ Extirpation of Matter from Left Common Iliac Vein, Percutaneous Approach (ICD-10-PCS; 2016-08-04)
PROC: 06CG3ZZ Extirpation of Matter from Left External Iliac Vein, Percutaneous Approach (ICD-10-PCS; 2016-08-04)
PROC: 06CN3ZZ Extirpation of Matter from Left Femoral Vein, Percutaneous Approach (ICD-10-PCS; 2016-08-04)
PROC: B5191ZZ Fluoroscopy of Inferior Vena Cava using Low Osmolar Contrast (ICD-10-PCS; 2016-08-04)
PROC: 06C03ZZ Extirpation of Matter from Inferior Vena Cava, Percutaneous Approach (ICD-10-PCS; 2016-08-04)
PROC: 3E03317 Introduction of Other Thrombolytic into Peripheral Vein, Percutaneous Approach (ICD-10-PCS; 2016-08-04)
PROC: 06HD33Z Insertion of Infusion Device into Left Common Iliac Vein, Percutaneous Approach (ICD-10-PCS; 2016-08-04)
PROC: 067D3ZZ Dilation of Left Common Iliac Vein, Percutaneous Approach (ICD-10-PCS; 2016-08-04)
PROC: 067G3DZ Dilation of Left External Iliac Vein with Intraluminal Device, Percutaneous Approach (ICD-10-PCS; 2016-08-04)
PROC: 067N3ZZ Dilation of Left Femoral Vein, Percutaneous Approach (ICD-10-PCS; 2016-08-04)
PROC: B51C1ZZ Fluoroscopy of Left Lower Extremity Veins using Low Osmolar Contrast (ICD-10-PCS; 2016-08-04)
DX: I82.412 Acute embolism and thrombosis of left femoral vein (principal); D68.9 Coagulation defect, unspecified; M31.9 Necrotizing vasculopathy, unspecified; Z88.8 Allergy status to other drugs, medicaments and biological substances; Z88.5 Allergy status to narcotic agent; K21.9 Gastro-esophageal reflux disease without esophagitis; M79.7 Fibromyalgia; Z90.710 Acquired absence of both cervix and uterus; Z84.89 Family history of other specified conditions; D72.819 Decreased white blood cell count, unspecified; I95.9 Hypotension, unspecified; R07.89 Other chest pain; D69.6 Thrombocytopenia, unspecified
CPT/HCPCS: 36415; 37187; 37212; 37214; 37238; 37249; 71010; 75820; 76937; 80048; 80053; 80074; 81001; 82550; 82553; 84484; 85007; 85025; 85027; 85384; 85520; 85610; 85730; 86850; 86900; 86901; 93005; 93010; 93306; 93970; 94760; 96374; 96375; A6250; C1725; C1757; C1769; C1876; C1887; C1894; J0583; J0690; J0883; J1200; J1644; J2250; J2270; J2405; J2920; J2930; J2997; J3010; J7030; J7040; J7050; Q9967

== ENCOUNTER 2017-01-01 09:53 | Outpatient (CLI) | payer OTHER ==
--- NOTE | 2017-01-02 09:57 | Vascular Lab Report ---
LOWER EXTREMITY VENOUS DUPLEX: REASON FOR EXAM: Pain and swelling of the lower extremities. COMMENTS ON THE RIGHT: Chronic deep venous thrombosis noted in the popliteal femoral and deep femoral veins. The remaining veins visualized are freely compressible without evidence of internal echogenicity. Spontaneous and phasic flow is present proximally. COMMENTS ON THE LEFT: Chronic deep venous thrombosis is noted in the popliteal, femoral, common femoral and deep femoral veins. The remaining veins visualized are freely compressible without evidence of internal echogenicity. Spontaneous and phasic flow is absent proximally. IMPRESSION: Chronic deep venous thrombosis bilaterally
== END 2017-01-01 09:54 | disposition home or self-care (01) ==
LOC: SPVWC 09:53
PROVIDERS: ATTEND Radiology Diagnostic Radiology
DX: I82.513 Chronic embolism and thrombosis of femoral vein, bilateral (principal); I82.533 Chronic embolism and thrombosis of popliteal vein, bilateral; I89.0 Lymphedema, not elsewhere classified; G57.51 Tarsal tunnel syndrome, right lower limb; S97.01XD Crushing injury of right ankle, subsequent encounter; X58.XXXD Exposure to other specified factors, subsequent encounter
CPT/HCPCS: 93970

== ENCOUNTER 2017-01-11 07:51 | Inpatient (IN) | payer OTHER ==
[~2017-01-11 07:51] MED LIST: ANCEF/STERILE WATER 2 GM/20 ML 2 GM/20 ML SYRINGE IV NR
[2017-01-11] MEDS ORDERED: NORCO 5/325 PO PRN (09:06)
[2017-01-11 09:17] LABS: Basophils % (Auto) 0.7 % (0.0-1.8); Eosinophils % (Auto) 0.5 % (0.0-4.3); Hematocrit 39.3 % (30.3-42.9); Hemoglobin 12.9 gm/dl (10.1-14.3); Mean Corpuscular HGB Conc 33 % (30-34); Mean Corpuscular Hemoglobin 30 pg (28-32); Mean Corpuscular Volume 92 fl (79-97); Platelet Count 151 K/mm3 (140-440); Red Blood Count 4.28 M/mm3 (3.65-5.03); White Blood Count 3.7 K/mm3 (4.5-11.0)
[2017-01-11] MEDS ORDERED: BENADRYL ONE (09:23)
[2017-01-11] MEDS ORDERED: PEPCID IV ONE (09:25)
[2017-01-11 09:28] LABS: INR 1.07 (0.87-1.13)
[2017-01-11 09:29] LABS: Partial Thromboplastin Time 24.8 Sec. (24.2-36.6)
[2017-01-11 09:42] LABS: Anion Gap 14 mmol/L; BUN/Creatinine Ratio 14; Blood Urea Nitrogen 10 mg/dL (7-17); Calcium 9.2 mg/dL (8.4-10.2); Carbon Dioxide 29 mmol/L (22-30); Chloride 104.2 mmol/L (98-107); Glucose 98 mg/dL (65-100); Potassium 4.4 mmol/L (3.6-5.0); Sodium 143 mmol/L (137-145)
[2017-01-11] MEDS ORDERED: HEPARIN/NS 5000 UNIT/500ML(CATH LAB) 1,000 ML IR ONE (09:49)
[2017-01-11] MEDS ORDERED: HEPARIN 10,000 UNITS/10 ML ONE (09:49)
[2017-01-11] MEDS ORDERED: XYLOCAINE 2% INFILTRATI ONE (09:50)
[2017-01-11] MEDS ORDERED: ANCEF/STERILE WATER 2 GM/20 ML 0 GM/0 ML SYRINGE IV ONE (09:51)
[2017-01-11] MEDS ORDERED: VANCOMYCIN/NS 1 GM/250 ML 1 GM/250 ML BAG IV ONE ×2 (09:55→09:57)
[2017-01-11] MEDS ORDERED: NACL 0.9% 1000 ML 1,000 ML SHEATH SCH (10:00)
[2017-01-11] MEDS ORDERED: PEPCID PO NR (10:00)
[2017-01-11] MEDS ORDERED: BENADRYL IV ONE ×2 (10:00→23:44)
[2017-01-11] MEDS ORDERED: NACL 0.9% 1000 ML 1,000 ML IV SCH (10:00)
[2017-01-11] MEDS ORDERED: NACL 0.9% 1000 ML 1,000 ML EKOSCLUMEN SCH (10:00)
[2017-01-11] MEDS: NACL 0.9% 1000 ML 1,000 ML IV SCH ×2 (10:01→12:20)
[2017-01-11] MEDS: ZOFRAN IV PRN (10:05)
[2017-01-11] MEDS: VERSED ONE ×2 (10:31→11:13)
[2017-01-11] MEDS: HEPARIN/ 0.45% NACL-25,000 UNIT/500 ML 25,000 UNIT/500 ML BAG SHEATH SCH ×2 (10:35→12:20)
[2017-01-11] MEDS: SUBLIMAZE ONE ×2 (10:40→10:52)
[2017-01-11] MEDS ORDERED: NITROGLYCERIN SYRINGE 3 ML ONE (11:05)
[2017-01-11] MEDS ORDERED: NACL 0.9% 500 ML 500 ML ONE (11:07)
[2017-01-11] MEDS ORDERED: CATHFLO ONE ×2 (11:07→11:35)
[2017-01-11] MEDS ORDERED: WATER FOR INJ (PF) 10 ML ONE ×2 (11:08→11:34)
[2017-01-11] MEDS ORDERED: NACL 0.9% 50 ML ONE (11:09)
[2017-01-11] MEDS ORDERED: HEPARIN/NS 5000 UNIT/500ML(CATH LAB) 500 ML IR ONE (11:09)
[2017-01-11] MEDS: HEPARIN 10,000 UNITS/10 ML ONE ×2 (11:41→11:42)
[2017-01-11] MEDS ORDERED: SUBLIMAZE ONE (11:51)
--- NOTE | 2017-01-11 12:15 | Operative Report ---
Operative Report Operative Report: EXAM: 1. Ultrasound-guided access of the left popliteal vein 2. Venography of the left lower extremity 3. Ultrasound-guided access of the left lesser saphenous vein 4. Selection of the left external and common iliac veins with venography of the IVC and left iliac veins 5. Angioplasty of the left lesser saphenous vein with a 3 mm x 120 mm angioplasty balloon 6. Injection of 600 g of nitroglycerin in the left lesser saphenous vein 7. Pulse spray of 10 mg of TPA in the left common iliac vein, external iliac vein, common femoral vein, and proximal superficial femoral vein 8. 6 Vietnamese mechanical thrombectomy of the left common iliac vein, external iliac vein, common femoral vein, and proximal superficial femoral vein 9. Placement of a 30 cm x 106 cm EKOS thrombolytic catheter in the left lower extremity venous system from the left common iliac vein to the left superficial femoral vein DATE: 01/11/17 BILINGUAL PATIENT SUPPORT CASEWORKER: RUBIO REHMAN MD INDICATION: Recurrent iliofemoral thrombosis with disabling left lower extremity pain and swelling MEDICATIONS: Please see nursing report for full details. DEVICES: 3 mm x 120 mm angioplasty balloon 6 Vietnamese AngioJet 30 cm x 106 cm EKOS thrombolytic catheter CONTRAST: Please see microbiological lab technician report for full details PROCEDURE: The risks, benefits, and alternatives were discussed with the patient; written informed consent was obtained. The patient was brought to the angiography suite and placed in the prone position. The left popliteal vein was evaluated and was partially patent. Using a 21-gauge micropuncture needle, under direct ultrasound guidance, the left popliteal vein was accessed. 0.018 inch wire was passed through the needle. Needle was exchanged for 5 Vietnamese transitional dilator. Digital subtraction angiography was performed demonstrating numerous collaterals extending from the popliteal vein into the superficial femoral vein with no direct conduit into the superficial femoral vein except for through extensive collateral networks. I attempted to enter the kashia superficial femoral vein with a Glidewire advantage, but there was no direct connection which appears to have chronically occluded and became flush with the venous system. The large collateral network was the dominant flow into the superficial femoral vein. I exchanged the transitional dilator for 4 Vietnamese sheath. I then used ultrasound to assess the location of my transitional dilator which was in the popliteal vein. I then evaluated the leg and found that the lesser saphenous vein was patent. Under direct ultrasound guidance, the left lesser saphenous vein was punctured with a 21-gauge micropuncture needle under direct ultrasound guidance. 0.018 inch wire was passed through the needle. The needle was exchanged for a 5 Vietnamese transitional dilator. Under fluoroscopy, I noted that the wire passed into the superficial femoral vein venous system and decided this access was appropriate. Angiography was performed to the transitional dilator demonstrating severely narrowed lesser saphenous veins with collaterals noted around the narrowing, but the narrowing was able to be cannulated, and passed directly into the superficial femoral vein without tortuosity. The patient was heparinized. Transitional dilator was exchanged for 6 Vietnamese sheath. Digital subtraction angiography was performed which demonstrated patency of the left superficial femoral vein until the proximal portion of the vein, and the left profunda femoral vein was occluded. The common femoral vein, stented external iliac vein , and stented common iliac vein on the left side were all occluded. The IVC was patent. Glidewire advantage was then passed into the IVC and exchanged for a angled catheter. I selected the left common iliac vein and digital subtraction angiography demonstrated thrombosis of the segment. I select the left external iliac vein and digital subtraction angiography demonstrated thrombosis of the segment. Selected the left common iliac vein and digital subjective angiography demonstrated thrombosis of the segment. Due to the severe narrowing associated with the main channel of the lesser saphenous vein which is likely been occluded since there is numerous tortuous vessels around it I decided it required angioplasty dilatation before I could use any larger devices through the lesser saphenous vein. 0.014 wire was passed centrally. 3 mm x 120 mm angioplasty balloon was advanced over the wire used to perform angioplasty at 8 jenna for 2 minutes in each station throughout the left lesser saphenous vein. Digital subtraction angiography then demonstrated improved patency of this vein which could now accommodate devices. Wire was exchanged for a Glidewire advantage. 6 Vietnamese AngioJet was advanced over the wire and used to pulse spray 10 mg TPA in the left common iliac vein, external iliac vein, common femoral vein, and proximal superficial femoral vein. 15 minute dwell time was allowed. Mechanical thrombectomy was then performed at the segments. Digital subtraction angiography demonstrated partial improvement of the thrombus. I then decided to use a thrombolytic catheter. I remove the AngioJet exchanged for a 30 cm x 106 cm EKOS thrombolytic catheter spanning across the left common iliac vein, external iliac vein, common femoral vein, and proximal superficial femoral vein. The thombolytic catheter was primed with 4 mg of TPA. 2500 units of heparin was used to heparinized the sheaths. FINDINGS: Please see procedure note above. IMPRESSION: 1. Successful access of the left lesser saphenous vein and popliteal vein with venography of the left lower extremity and selection of the left common iliac vein. 2. Successful angioplasty of the left lesser saphenous vein. 3. Successful mechanical thrombectomy of the left common iliac vein, external iliac vein, common femoral vein, and proximal superficial femoral vein. 4. Successful placement of a thrombolytic catheter across the left common iliac vein, external iliac vein, common femoral vein, and proximal superficial femoral vein.
[2017-01-11] MEDS: CATHFLO 20 MG in NACL 0.9% 500 ML 500 ML EKOSDLUMEN SCH (12:22)
[2017-01-11] MEDS ORDERED: NACL 0.9% 1000 ML 1,000 ML ONE (12:41)
[2017-01-11] MEDS ORDERED: NORCO 5/325 ONE (13:36)
[2017-01-11] MEDS ORDERED: DILAUDID ONE ×3 (13:57→20:34)
[2017-01-11] MEDS: DILAUDID IV PRN ×4 (14:00→23:04)
[2017-01-11 16:38] LABS: Hematocrit 41.2 % (30.3-42.9); Hemoglobin 13.1 gm/dl (10.1-14.3); Mean Corpuscular HGB Conc 32 % (30-34); Mean Corpuscular Hemoglobin 30 pg (28-32); Mean Corpuscular Volume 93 fl (79-97); Platelet Count 153 K/mm3 (140-440); Red Blood Count 4.43 M/mm3 (3.65-5.03); White Blood Count 3.6 K/mm3 (4.5-11.0)
--- NOTE | 2017-01-11 17:27 | Short Stay Summary ---
Short Stay Documentation Date of service: 01/11/17 Narrative H&P: This patient is a 55-year-old female was admitted previously for phlegmasia requiring IVC reconstruction in 2014 for extensive iliac and caval thrombus. She had an episode of rethrombosis of her left lower extremity on 11/2016 due to an acute ileofemoral DVT. She had successful thrombolysis, but had poor followup and subsequently rethrombosed. Represents with rethrombosis of the left lower extremity with severe pain and swelling. R/B/A discussed with patient and thrombolysis will be performed of her left lower extremity. - History Principal diagnosis: ileofemoral LLE DVT H&P: obtained from office - Allergies and Medications Current Medications: Allergies acetaminophen [From Percocet] Allergy (Verified 07/19/15 15:02) Hives oxycodone HCl [From Percocet] Allergy (Verified 07/19/15 15:02) Hives Penicillins Allergy (Verified 01/11/17 10:39) Itching Home Medications Medication Instructions Recorded Confirmed Last Taken Type Apixaban [Eliquis] 5 mg PO BID #30 tablet 08/06/16 01/11/17 01/09/17 Rx Tizanidine HCl [Tizanidine HCl] 2 mg PO TID 01/11/17 01/11/17 01/10/17 History Active Medications Acetaminophen/Hydrocodone Bitart ([place] 5/325) 2 each PO Q6H PRN PRN Reason: Pain, Moderate (4-6) Hydromorphone HCl (Dilaudid) 0.5 mg IV Q3H PRN PRN Reason: Pain , Severe (7-10) Last Admin: 01/11/17 17:17 Dose: 0.5 mg Cefazolin Sodium (Ancef/Sterile Water 2 Gm/20 Ml) 2 gm in 20 mls @ 80 mls/hr IV PREOP NR PRN Reason: Protocol Stop: 01/11/17 23:01 Sodium Chloride (Nacl 0.9% 1000 Ml) 1,000 mls @ 75 mls/hr IV DIRECT BRUCE Last Admin: 01/11/17 10:01 Dose: 125 mls/hr Alteplase, Recombinant 20 mg/ (Sodium Chloride) 500 mls @ 25 mls/hr EKOSDLUMEN DIRECT BRUCE Last Admin: 01/11/17 12:22 Dose: 25 mls/hr Heparin Sodium/Sodium Chloride (Heparin/ 0.45% Nacl-25,000 Unit/500 Ml) 25,000 unit in 500 mls @ 10 mls/hr SHEATH DIRECT BRUCE; 500 UNITS/HR PRN Reason: Protocol Last Admin: 01/11/17 12:20 Dose: 500 units/hr, 10 mls/hr Sodium Chloride (Nacl 0.9% 1000 Ml) 1,000 mls @ 30 mls/hr IV DIRECT BRUCE Sodium Chloride (Nacl 0.9% 1000 Ml) 1,000 mls @ 35 mls/hr EKOSCLUMEN DIRECT BRUCE Last Admin: 01/11/17 12:22 Dose: 35 mls/hr Sodium Chloride (Nacl 0.9% 1000 Ml) 1,000 mls @ 30 mls/hr SHEATH DIRECT BRUCE Sodium Chloride (Nacl 0.9% 1000 Ml) 1,000 mls @ 60 mls/hr IV DIRECT BRUCE Last Admin: 01/11/17 12:20 Dose: 60 mls/hr Ondansetron HCl (Zofran) 4 mg IV Q8H PRN PRN Reason: Nausea And Vomiting Last Admin: 01/11/17 10:05 Dose: 4 mg - Physical exam General appearance: mild distress (LLE discomfort) Lungs: Normal air movement Gastrointestinal: normal Extremities: abnormal (LLE pain and swelling 3+) - Brief post op/procedure progress note Date of procedure: 01/11/17 Short Stay Discharge Plan Follow up with: PRIMARY CARE, [Primary Care Provider] - 7 Days
[2017-01-11 18:24] LABS: Blastocytes % (Manual) 0 %
[2017-01-11 18:25] LABS: Basophils % (Manual) 0 % (0.0-1.8)
--- NOTE | 2017-01-11 18:25 | Consultation ---
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 Patient was recently worked up with hematology to rule out hypercoagulable state. Current workup is still pending. Patient states she was recently diagnosed with Sjogren syndrome. No lupus. No lupus anticoagulate antithrombin III and factor V Leiden identified. Patient was in usual state of health the size recurrent thromboses and 2 she developed left lower extremity pain. Patient had a prior clot in the leg and therefore wanted to have leg checked out. Status post evaluation with vascular was found to have iliofemoral thrombosis with pain. Patient scheduled for surgery and underwent uncomplicated EKOS. Called to follow patient for medical management. 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 Despite low threshold for hit syndrome patient has been premedicated already. Patient currently pain free with current dose of Dilaudid alert and oriented hemodynamically stable. Past History Past Medical History: DVT. denies: acute [place], atrial fib, arrhythmia, anemia, arthritis, CAD, cancer, COPD, diabetes, dialysis, heart failure, hepatitis, hypertension, hyperlipidemia, hypothyroidism, liver disease, PVD, renal failure , seizures, stroke Social history: , lives with family, full code Family history: no significant family history Medications and Allergies Allergies Allergy/AdvReac Type Severity Reaction Status Date / Time acetaminophen [From Percocet] Allergy Hives Verified 07/19/15 15:02 oxycodone HCl [From Percocet] Allergy Hives Verified 07/19/15 15:02 Penicillins Allergy Itching Verified 01/11/17 10:39 Home Medications Medication Instructions Recorded Confirmed Last Taken Type Apixaban [Eliquis] 5 mg PO BID #30 tablet 08/06/16 01/11/17 01/09/17 Rx Tizanidine HCl [Tizanidine HCl] 2 mg PO TID 01/11/17 01/11/17 01/10/17 History Active Meds: Active Medications Acetaminophen/Hydrocodone Bitart ([place] 5/325) 2 each PO Q6H PRN PRN Reason: Pain, Moderate (4-6) Hydromorphone HCl (Dilaudid) 0.5 mg IV Q3H PRN PRN Reason: Pain , Severe (7-10) Last Admin: 01/11/17 17:17 Dose: 0.5 mg Cefazolin Sodium (Ancef/Sterile Water 2 Gm/20 Ml) 2 gm in 20 mls @ 80 mls/hr IV PREOP NR PRN Reason: Protocol Stop: 01/11/17 23:01 Sodium Chloride (Nacl 0.9% 1000 Ml) 1,000 mls @ 75 mls/hr IV DIRECT BRUCE Last Admin: 01/11/17 10:01 Dose: 125 mls/hr Alteplase, Recombinant 20 mg/ (Sodium Chloride) 500 mls @ 25 mls/hr EKOSDLUMEN DIRECT BRUCE Last Admin: 01/11/17 12:22 Dose: 25 mls/hr Heparin Sodium/Sodium Chloride (Heparin/ 0.45% Nacl-25,000 Unit/500 Ml) 25,000 unit in 500 mls @ 10 mls/hr SHEATH DIRECT BRUCE; 500 UNITS/HR PRN Reason: Protocol Last Admin: 01/11/17 12:20 Dose: 500 units/hr, 10 mls/hr Sodium Chloride (Nacl 0.9% 1000 Ml) 1,000 mls @ 30 mls/hr IV DIRECT BRUCE Sodium Chloride (Nacl 0.9% 1000 Ml) 1,000 mls @ 35 mls/hr EKOSCLUMEN DIRECT BRUCE Last Admin: 01/11/17 12:22 Dose: 35 mls/hr Sodium Chloride (Nacl 0.9% 1000 Ml) 1,000 mls @ 30 mls/hr SHEATH DIRECT BRUCE Sodium Chloride (Nacl 0.9% 1000 Ml) 1,000 mls @ 60 mls/hr IV DIRECT BRUCE Last Admin: 01/11/17 12:20 Dose: 60 mls/hr Ondansetron HCl (Zofran) 4 mg IV Q8H PRN PRN Reason: Nausea And Vomiting Last Admin: 01/11/17 10:05 Dose: 4 mg Review of Systems Constitutional: no weight loss, no weight gain, no fever, no chills, no sweats, no anorexia, no daytime sleepiness, no chronic pain, no other Ears, nose, mouth and throat: no tinnitis, no sinus pressure, no dental pain, no sore throat, no swelling in throat, no pain front of neck, no neck fullness/ pressure, no neck lump Breasts: no deferred, no normal, no change in shape, no pain, no , no tender, no engorged, no nipple abnormal Cardiovascular: no orthopnea, no palpitations, no rapid/irregular heart beat, no syncope, no lightheadedness, no phlebitis, no high blood pressure Respiratory: no cough with sputum, no excessive sputum, no hemoptysis, no dyspnea on exertion, no wheezing, no snoring, no sleep apnea Gastrointestinal: no vomiting, no change in bowel habits, no hematemesis, no BRBPR, no early satiety, no heartburn, no indigestion, no excessive gas, no early satiety, no lactose intolerance Genitourinary Female: no pelvic pain, no flank pain, no urinary frequency, no incomplete emptying, no abnormal vaginal bleeding, no vaginal dryness, no mood problems, no difficulties conceiving Musculoskeletal: shooting leg pain, leg numbness/tingling, morning stiffness, muscle cramps, other (blood clot phlebitis), no neck stiffness, no neck pain, no shooting arm pain, no arm numbness/tingling, no low back pain, no redness of joints, no hot joints, no muscle weakness, no myalgias, no atrophy, no limitation of motion, no gait dysfunction, no frequent falls, no fractures Integumentary: depigmentation, no rash, no pruritis, no redness, no sores, no wounds, no growths, no lesions, no darkening of skin, no change in hair/nails, no striae, no hirsutism, no onychomycosis Neurological: no weakness, no parathesias, no tingling, no syncope, no change in speech, no confusion, no balance difficulties, no gait dysfunction, no sensory deficit, no double vision Psychiatric: no memory loss, no insomnia, no change in libido, no suicidal ideation, no anhedonia, no anxiety attacks Endocrine: no excessive thirst, no weight change, no increase in ring/shoe/hat size, no deepening of the voice, no thyroid mass, no palpatations Hematologic/Lymphatic: no easy bleeding, no lymphadenopathy Allergic/Immunologic: no urticaria, no allergic rhinitis, no gluten intolerance , no seasonal allergies Exam - Constitutional Vitals: Temp Pulse Resp BP Pulse Ox 98.3 F 66 20 122/68 96 01/11/17 12:18 01/11/17 18:00 01/11/17 18:00 01/11/17 18:00 01/11/17 18:00 General appearance: Present: no acute distress, well-nourished - EENT Eyes: Present: PERRL ENT: hearing intact, clear oral mucosa - Neck Neck: Present: supple, normal ROM - Respiratory Respiratory effort: normal Respiratory: bilateral: CTA - Cardiovascular Heart Sounds: Present: S1 & S2. Absent: rub, click - Extremities Extremities: pulses intact, pulses symmetrical, No edema, normal temperature, normal color, Full ROM Extremity abnormal: tenderness, other (hypertrophic skin changes. Diminished pulses but stable.) Peripheral Pulses: within normal limits - Abdominal General gastrointestinal: Present: soft, non-tender, non-distended, normal bowel sounds Female genitourinary: Present: normal - Integumentary Integumentary: Present: clear, warm, dry - Musculoskeletal Musculoskeletal: gait normal, strength equal bilaterally - Psychiatric Psychiatric: appropriate mood/affect, intact judgment & insight - Neurologic Neurologic: CNII-XII intact, moves all extremities Results - Labs CBC & Chem 7: 01/11/17 16:03 01/11/17 08:57 Labs: Abnormal lab results 01/11/17 01/11/17 01/11/17 Range/Units 08:57 16:03 16:03 WBC 3.7 L 3.6 L (4.5-11.0) K/mm3 Lymph % (Auto) 43.4 H (13.4-35.0) % Braxton % (Auto) 15.3 H (0.0-7.3) % Seg Neutrophils # 1.5 L (1.8-7.7) K/mm3 Heparin Anti-Xa Level 0.80 H (0.3-0.7) U.I./ml Assessment and Plan - Patient Problems (1) DVT, bilateral lower limbs Current Visit: No Status: Acute Qualifiers: Affected thrombotic vein of extremity: A Chronicity: C Plan to address problem: Patient was on Elaquis. Patient had recurrent iliofemoral thrombosis. Today status post thrombectomy angioplasty with stent placement. Patient tolerated procedure well hemodynamically stable. Pulses are intact. Observe in ICU status post EKOS. (2) Thrombocytopenia Current Visit: No Status: Acute Plan to address problem: stable platelet is 153,000. Agree with prophylaxis against hit syndrome. (3) DVT of leg (deep venous thrombosis) Current Visit: No Status: Chronic Qualifiers: Affected thrombotic vein of extremity: femoral Chronicity: acute Laterality: left Qualified Code(s): I82.412 - Acute embolism and thrombosis of left femoral vein (4) Chronic leukopenia Current Visit: Yes Status: Acute Plan to address problem: Patient with chronic leukopenia stable on last CBC. (5) Chronic leukopenia Current Visit: Yes Status: Acute
[2017-01-11 18:29] LABS: Anisocytosis 1+; Diff Status Complete; Ovalocytes 1+; Platelet Estimate Consistent w Auto
[2017-01-11 22:00] LABS: Hematocrit 39.5 % (30.3-42.9); Hemoglobin 12.8 gm/dl (10.1-14.3); Mean Corpuscular HGB Conc 33 % (30-34); Mean Corpuscular Hemoglobin 30 pg (28-32); Mean Corpuscular Volume 92 fl (79-97); Platelet Count 141 K/mm3 (140-440); Red Cell Distribution Width 14.4 % (13.2-15.2); White Blood Count 5.5 K/mm3 (4.5-11.0)
[2017-01-11 22:47] LABS: Basophils % (Manual) 0 % (0.0-1.8); Blastocytes % (Manual) 0 %; Eosinophils % (Manual) 0 % (0.0-4.3)
[2017-01-11 22:48] LABS: Anisocytosis 1+; Diff Status Complete; Elliptocytes 1+; Platelet Estimate Consistent w Auto
[2017-01-12] MEDS: NACL 0.9% 1000 ML 1,000 ML IV SCH ×3 (02:23→21:22)
[2017-01-12] MEDS ORDERED: VISTARIL IM ONE (03:00)
[2017-01-12] MEDS ORDERED: PROTONIX IV ONE (03:00)
[2017-01-12] MEDS: MORPHINE IV PRN (03:17)
[2017-01-12] MEDS: DILAUDID IV PRN ×4 (04:44→21:50)
[2017-01-12 05:29] LABS: Hematocrit 39.2 % (30.3-42.9); Hemoglobin 13.1 gm/dl (10.1-14.3); Mean Corpuscular HGB Conc 33 % (30-34); Mean Corpuscular Hemoglobin 30 pg (28-32); Mean Corpuscular Volume 91 fl (79-97); Platelet Count 121 K/mm3 (140-440); Red Cell Distribution Width 14.4 % (13.2-15.2); White Blood Count 8.6 K/mm3 (4.5-11.0)
[2017-01-12 05:47] LABS: Anion Gap 17 mmol/L; BUN/Creatinine Ratio 17; Blood Urea Nitrogen 10 mg/dL (7-17); Calcium 8.6 mg/dL (8.4-10.2); Carbon Dioxide 23 mmol/L (22-30); Chloride 102.8 mmol/L (98-107); Glucose 134 mg/dL (65-100); Potassium 4.1 mmol/L (3.6-5.0); Sodium 139 mmol/L (137-145)
[2017-01-12 06:40] LABS: Anisocytosis RARE; Basophils % (Manual) 0 % (0.0-1.8); Blastocytes % (Manual) 0 %; Diff Status Complete; Eosinophils % (Manual) 0 % (0.0-4.3)
--- NOTE | 2017-01-12 07:35 | Vascular Lab Report ---
MISCELLANEOUS VESSEL IDENTIFICATION: COMMENTS ON THE SCAN: The left small saphenous vein was identified and under real-time ultrasound guidance was cannulated. IMPRESSION: Successful ultrasound guided vein cannulation.
[2017-01-12] MEDS: CATHFLO 20 MG in NACL 0.9% 500 ML 500 ML EKOSDLUMEN SCH (09:06)
--- NOTE | 2017-01-12 09:54 | Consultation ---
History of Present Illness Consult date: 01/12/17 Requesting physician: RUBIO REHMAN Reason for consult: other (Peripheral Vascular Disease with acute limb ischemia s/p thrombolysis with EkOS placement) History of present illness: PULMONARY / CCM CONSULT NOTE (Full dictation # [id number] & [id number]) Please see dictated notes for full details Past History Past Medical History: DVT. denies: acute [place], atrial fib, arrhythmia, anemia, arthritis, CAD, cancer, COPD, diabetes, dialysis, heart failure, hepatitis, hypertension, hyperlipidemia, hypothyroidism, liver disease, PVD, renal failure , seizures, stroke Social history: , lives with family, full code Family history: no significant family history Medications and Allergies Allergies Allergy/AdvReac Type Severity Reaction Status Date / Time acetaminophen [From Percocet] Allergy Hives Verified 07/19/15 15:02 hydrocodone Allergy Hives Verified 01/11/17 20:20 oxycodone HCl [From Percocet] Allergy Hives Verified 07/19/15 15:02 Penicillins Allergy Itching Verified 01/11/17 10:39 Home Medications Medication Instructions Recorded Confirmed Last Taken Type Apixaban [Eliquis] 5 mg PO BID #30 tablet 08/06/16 01/11/17 01/09/17 Rx Tizanidine HCl [Tizanidine HCl] 2 mg PO TID 01/11/17 01/11/17 01/10/17 History Active Meds: Active Medications Hydromorphone HCl (Dilaudid) 0.5 mg IV Q3H PRN PRN Reason: Pain , Severe (7-10) Last Admin: 01/12/17 08:13 Dose: 0.5 mg Sodium Chloride (Nacl 0.9% 1000 Ml) 1,000 mls @ 75 mls/hr IV DIRECT BRUCE Last Admin: 01/12/17 02:23 Dose: 125 mls/hr Alteplase, Recombinant 20 mg/ (Sodium Chloride) 500 mls @ 25 mls/hr EKOSDLUMEN DIRECT BRUCE Last Admin: 01/12/17 09:06 Dose: 25 mls/hr Heparin Sodium/Sodium Chloride (Heparin/ 0.45% Nacl-25,000 Unit/500 Ml) 25,000 unit in 500 mls @ 10 mls/hr SHEATH DIRECT BRUCE; 500 UNITS/HR PRN Reason: Protocol Last Admin: 01/11/17 12:20 Dose: 500 units/hr, 10 mls/hr Sodium Chloride (Nacl 0.9% 1000 Ml) 1,000 mls @ 30 mls/hr IV DIRECT BRUCE Sodium Chloride (Nacl 0.9% 1000 Ml) 1,000 mls @ 35 mls/hr EKOSCLUMEN DIRECT BRUCE Last Admin: 01/11/17 12:22 Dose: 35 mls/hr Sodium Chloride (Nacl 0.9% 1000 Ml) 1,000 mls @ 30 mls/hr SHEATH DIRECT BRUCE Sodium Chloride (Nacl 0.9% 1000 Ml) 1,000 mls @ 60 mls/hr IV DIRECT BRUCE Last Admin: 01/12/17 02:24 Dose: 60 mls/hr Morphine Sulfate (Morphine) 2 mg IV Q4H PRN PRN Reason: Pain, Moderate (4-6) Last Admin: 01/12/17 03:17 Dose: 2 mg Ondansetron HCl (Zofran) 4 mg IV Q8H PRN PRN Reason: Nausea And Vomiting Last Admin: 01/11/17 10:05 Dose: 4 mg Tizanidine HCl (Zanaflex) 2 mg PO TID PRN PRN Reason: Muscle Spasm Physical Examination Vital signs: Vital Signs Temp Pulse Resp BP Pulse Ox 98.3 F 54 L 12 139/79 94 01/11/17 12:18 01/11/17 12:18 01/11/17 12:18 01/11/17 12:18 01/11/17 12:18 Results - Laboratory Findings CBC and BMP: 01/12/17 04:50 01/12/17 04:50 PT/INR, D-dimer PT 14.4 Sec. (12.2-14.9) 01/11/17 08:57 INR 1.07 (0.87-1.13) 01/11/17 08:57 Abnormal lab findings: Abnormal Labs 01/11/17 01/11/17 01/11/17 08:57 16:03 16:03 WBC 3.7 L 3.6 L Plt Count Lymph % (Auto) 43.4 H Darke % (Auto) 15.3 H Seg Neuts % (Manual) 80.0 H Lymphocytes % (Manual) 8.0 L Seg Neutrophils # 1.5 L Seg Neutrophils # Man Lymphocytes # (Manual) 0.3 L Heparin Anti-Xa Level 0.80 H Creatinine Glucose 01/11/17 01/12/17 01/12/17 21:22 04:50 04:50 WBC Plt Count 121 L Lymph % (Auto) Darke % (Auto) Seg Neuts % (Manual) 84.0 H 97.0 H Lymphocytes % (Manual) 5.0 L 1.0 L Seg Neutrophils # Seg Neutrophils # Man 8.3 H Lymphocytes # (Manual) 0.3 L 0.1 L Heparin Anti-Xa Level 0.26 L Creatinine Glucose 01/12/17 04:50 WBC Plt Count Lymph % (Auto) Darke % (Auto) Seg Neuts % (Manual) Lymphocytes % (Manual) Seg Neutrophils # Seg Neutrophils # Man Lymphocytes # (Manual) Heparin Anti-Xa Level Creatinine 0.6 L Glucose 134 H
--- NOTE | 2017-01-12 10:38 | Progress Note ---
Assessment and Plan Assessment and plan: Acute DVT left lower ext, s/p EKOS catheter placement, thrombolysis. She was on Heparin drip had allergic reaction. [facility] is Primary Physician. Acute allergic Reaction to Heparin, now disontinued. GERD. On Protonix Full code status History Interval history: Pain left lower extremity Hospitalist Physical - Physical exam Narrative exam: Gen Appearance: Not in acute distress, morbidly obese HEENT: normocephalic, atraumatic Neck: supple, no JVD Lungs: Clear to auscultation, no rales, no wheezing, Heart: S1 and S2 regular, no murmurs,no rubs or gallop, Abdomen: Soft , non tender, non distended, normal bowel sounds Extremity: Trace edema, no clubbing or cyanosis, Neuro : Awake,alert, oriented x 3, normal speech, moves all extremities Psych: Normal mood - Constitutional Vitals: Temp Pulse Resp BP Pulse Ox 98.1 F 84 11 L 112/55 100 01/12/17 08:26 01/12/17 10:00 01/12/17 08:26 01/12/17 08:26 01/12/17 08:26 General appearance: Present: no acute distress, well-nourished Results - Labs CBC & Chem 7: 01/13/17 15:25 01/13/17 15:37 Labs: Laboratory Last Values WBC 8.6 K/mm3 (4.5-11.0) 01/12/17 04:50 RBC 4.30 M/mm3 (3.65-5.03) 01/12/17 04:50 Hgb 13.1 gm/dl (10.1-14.3) 01/12/17 04:50 Hct 39.2 % (30.3-42.9) 01/12/17 04:50 MCV 91 fl (79-97) 01/12/17 04:50 MCH 30 pg (28-32) 01/12/17 04:50 MCHC 33 % (30-34) 01/12/17 04:50 RDW 14.4 % (13.2-15.2) 01/12/17 04:50 Plt Count 121 K/mm3 (140-440) L 01/12/17 04:50 Lymph % (Auto) Not Reportable 01/11/17 16:03 [place] % (Auto) Not Reportable 01/11/17 16:03 Eos % (Auto) Not Reportable 01/11/17 16:03 Baso % (Auto) Not Reportable 01/11/17 16:03 Lymph # Not Reportable 01/11/17 16:03 [place] # Not Reportable 01/11/17 16:03 Eos # Not Reportable 01/11/17 16:03 Baso # Not Reportable 01/11/17 16:03 Add Manual Diff Complete 01/12/17 04:50 Total Counted 100 01/12/17 04:50 Seg Neutrophils % Product Marketing Intern 01/12/17 04:50 Seg Neuts % (Manual) 97.0 % (40.0-70.0) H 01/12/17 04:50 Band Neutrophils % 1.0 % 01/12/17 04:50 Lymphocytes % (Manual) 1.0 % (13.4-35.0) L 01/12/17 04:50 Reactive Lymphs % (Man) 0 % 01/12/17 04:50 Monocytes % (Manual) 1.0 % (0.0-7.3) 01/12/17 04:50 Eosinophils % (Manual) 0 % (0.0-4.3) 01/12/17 04:50 Basophils % (Manual) 0 % (0.0-1.8) 01/12/17 04:50 Metamyelocytes % 0 % 01/12/17 04:50 Myelocytes % 0 % 01/12/17 04:50 Promyelocytes % 0 % 01/12/17 04:50 Blast Cells % 0 % 01/12/17 04:50 Nucleated RBC % Not Reportable 01/12/17 04:50 Seg Neutrophils # Not Reportable 01/11/17 16:03 Seg Neutrophils # Man 8.3 K/mm3 (1.8-7.7) H 01/12/17 04:50 Band Neutrophils # 0.1 K/mm3 01/12/17 04:50 Lymphocytes # (Manual) 0.1 K/mm3 (1.2-5.4) L 01/12/17 04:50 Abs React Lymphs (Man) 0.0 K/mm3 01/12/17 04:50 Monocytes # (Manual) 0.1 K/mm3 (0.0-0.8) 01/12/17 04:50 Eosinophils # (Manual) 0.0 K/mm3 (0.0-0.4) 01/12/17 04:50 Basophils # (Manual) 0.0 K/mm3 (0.0-0.1) 01/12/17 04:50 Metamyelocytes # 0.0 K/mm3 01/12/17 04:50 Myelocytes # 0.0 K/mm3 01/12/17 04:50 Promyelocytes # 0.0 K/mm3 01/12/17 04:50 Blast Cells # 0.0 K/mm3 01/12/17 04:50 WBC Morphology Not Reportable 01/12/17 04:50 Hypersegmented Neuts Not Reportable 01/12/17 04:50 Hyposegmented Neuts Not Reportable 01/12/17 04:50 Hypogranular Neuts Not Reportable 01/12/17 04:50 Smudge Cells Not Reportable 01/12/17 04:50 Toxic Granulation Not Reportable 01/12/17 04:50 Toxic Vacuolation Not Reportable 01/12/17 04:50 Dohle Bodies Not Reportable 01/12/17 04:50 Pelger-Huet Anomaly Not Reportable 01/12/17 04:50 Martina Rods Not Reportable 01/12/17 04:50 Platelet Estimate Appears normal 01/12/17 04:50 Clumped Platelets Not Reportable 01/12/17 04:50 Plt Clumps, EDTA Not Reportable 01/12/17 04:50 Large Platelets Not Reportable 01/12/17 04:50 Giant Platelets Not Reportable 01/12/17 04:50 Platelet Satelliting Not Reportable 01/12/17 04:50 Plt Morphology Comment Not Reportable 01/12/17 04:50 RBC Morphology Not Reportable 01/12/17 04:50 Dimorphic RBCs Not Reportable 01/12/17 04:50 Polychromasia Not Reportable 01/12/17 04:50 Hypochromasia Not Reportable 01/12/17 04:50 Poikilocytosis Not Reportable 01/12/17 04:50 Anisocytosis Rare 01/12/17 04:50 Microcytosis Not Reportable 01/12/17 04:50 Macrocytosis Not Reportable 01/12/17 04:50 Spherocytes Not Reportable 01/12/17 04:50 Pappenheimer Bodies Not Reportable 01/12/17 04:50 Sickle Cells Not Reportable 01/12/17 04:50 Target Cells Not Reportable 01/12/17 04:50 Tear Drop Cells Not Reportable 01/12/17 04:50 Ovalocytes Not Reportable 01/12/17 04:50 Helmet Cells Not Reportable 01/12/17 04:50 Mata-Corazon Bodies Not Reportable 01/12/17 04:50 Lindsey Rings Not Reportable 01/12/17 04:50 [place] Cells Not Reportable 01/12/17 04:50 Bite Cells Not Reportable 01/12/17 04:50 Crenated Cell Not Reportable 01/12/17 04:50 Elliptocytes Not Reportable 01/12/17 04:50 Acanthocytes (Spur) Not Reportable 01/12/17 04:50 Rouleaux Not Reportable 01/12/17 04:50 Hemoglobin C Crystals Not Reportable 01/12/17 04:50 Schistocytes Not Reportable 01/12/17 04:50 Malaria parasites Not Reportable 01/12/17 04:50 Adrian Bodies Not Reportable 01/12/17 04:50 Hem Pathologist Commnt No 01/12/17 04:50 PT 14.4 Sec. (12.2-14.9) 01/11/17 08:57 INR 1.07 (0.87-1.13) 01/11/17 08:57 APTT 24.8 Sec. (24.2-36.6) 01/11/17 08:57 Fibrinogen 284 mg/dl (211-480) 01/12/17 04:50 Heparin Anti-Xa Level 0.26 U.I./ml (0.3-0.7) L 01/12/17 04:50 Sodium 139 mmol/L (137-145) 01/12/17 04:50 Potassium 4.1 mmol/L (3.6-5.0) 01/12/17 04:50 Chloride 102.8 mmol/L (98-107) 01/12/17 04:50 Carbon Dioxide 23 mmol/L (22-30) 01/12/17 04:50 Anion Gap 17 mmol/L 01/12/17 04:50 BUN 10 mg/dL (7-17) 01/12/17 04:50 Creatinine 0.6 mg/dL (0.7-1.2) L 01/12/17 04:50 Estimated GFR > 60 ml/min 01/12/17 04:50 BUN/Creatinine Ratio 17 % 01/12/17 04:50 Glucose 134 mg/dL (65-100) H 01/12/17 04:50 Calcium 8.6 mg/dL (8.4-10.2) 01/12/17 04:50
[2017-01-12] MEDS: BENADRYL IV PRN ×3 (10:41→21:21)
[2017-01-12] MEDS ORDERED: HEPARIN/NS 5000 UNIT/500ML(CATH LAB) 500 ML IR ONE (11:53)
[2017-01-12] MEDS ORDERED: XYLOCAINE 2% INFILTRATI ONE (11:54)
[2017-01-12] MEDS ORDERED: VERSED ONE ×2 (11:54→13:02)
[2017-01-12] MEDS ORDERED: NACL 0.9% 500 ML 500 ML ONE (12:05)
[2017-01-12] MEDS ORDERED: NACL 0.9% 100 ML ONE (12:20)
[2017-01-12] MEDS ORDERED: ANGIOMAX IV ONE (12:20)
[2017-01-12] MEDS: BENADRYL ONE ×2 (12:41→13:35)
[2017-01-12] MEDS: HEPARIN 10,000 UNITS/10 ML ONE ×3 (12:42→13:51)
[2017-01-12] MEDS: SUBLIMAZE ONE ×3 (12:46→13:47)
[2017-01-12] MEDS ORDERED: SUBLIMAZE ONE (13:02)
[2017-01-12] MEDS ORDERED: ALUM-MAG HYDROX-SIMETH 200-200-20MG/5ML ONE (13:41)
[2017-01-12] MEDS ORDERED: ELIQUIS ONE (13:41)
--- NOTE | 2017-01-12 14:11 | Post Operative Note ---
Date of procedure: 01/12/17 Pre-op diagnosis: Ileofemoral LLE DVT Post-op diagnosis: same Procedure: Successful thrombectomy and angioplasty of the left lower extremity Anesthesia: local (w/ conscious sedation) Surgeon: RUBIO REHMAN Estimated blood loss: minimal Condition: stable Disposition: ICU
--- NOTE | 2017-01-12 14:11 | Operative Report ---
Operative Report Operative Report: EXAM: 1. Thrombolytic cath removal from the left lower extremity venous system 2. Venography of the left lower extremity 3. Aspiration thrombectomy with 8 Trinidadian MPA guide catheter in the left common iliac vein, left external iliac vein, left common femoral vein 4. Trerotola mechanical thrombectomy of the left common femoral vein 5. Angioplasty of the inferior vena cava with a 12 mm angioplasty balloon 6. Angioplasty of the left common iliac vein with a 12 mm angioplasty balloon 7. Angioplasty of the left external iliac vein with a 12 mm angioplasty balloon 8. Angioplasty of the left common femoral vein with a 12 mm angioplasty balloon 9. Angioplasty of the left proximal superficial femoral vein with a 10 mm angioplasty balloon 10. Repeat aspiration thrombectomy of the left common iliac vein, left external iliac vein, and left common femoral vein with a 8 Trinidadian MPA guide 11. Repeat angioplasty of the left common iliac vein, external iliac vein, and common femoral vein with a 12 mm angioplasty balloon DATE: 01/12/17 BONE DRIER OPERATOR: RUBIO REHMAN MD INDICATION: Left lower extremity iliofemoral DVT with severe symptoms with disabling venous claudication and inability to ambulate. MEDICATIONS: Please see nursing report for full details. DEVICES: 12 mm angioplasty balloon 8 Trinidadian MPA guide Trerotola mechanical thrombectomy device 10 mm angioplasty balloon CONTRAST: Please see cath report for full details. PROCEDURE: The risks, benefits, and alternatives were discussed with the patient; written informed consent was obtained. The patient's left knee was prepped and draped in a sterile fashion. Thrombolytic catheter was prepped and draped in a sterile fashion. Under fluoroscopic guidance, the left thrombolytic catheter was evaluated in the position was unchanged from 1 day previous. The thrombolytic catheter was removed over a 0.035 inch [place] wire. Digital subtraction angiography was performed to the sheath demonstrating patency of the left lesser saphenous vein, superficial femoral vein, popliteal vein, but severe narrowing associated with the left common femoral vein some of which represented thrombus, and moderate narrowing with thrombus within the external iliac vein, and common iliac vein. There was mild narrowing of the inferior vena cava in the infrarenal position. The sheath was upsized for an 8 Trinidadian 45 cm Paxton destination positioned in the superficial femoral vein. Roadmap imaging was performed in 8 Trinidadian MPA guide was then used to perform aspiration thrombectomy of the left common iliac vein, external iliac vein, and common femoral vein. This was performed multiple times with intermittent digital subtraction angiography. There is improvement in the thrombus burden. Trerotola mechanical thrombectomy device then used to perform mechanical thrombectomy in the left common femoral vein. This was performed multiple times. Digital subtraction angiography demonstrated decreased thrombus burden in these vessels, but there is some persistent narrowing that was multifocal in nature and all of these vessels. Angioplasty was performed of the inferior vena cava with a 12 mm angioplasty balloon, then the left common iliac vein, external iliac vein, and the left common femoral vein. 10 mm angioplasty balloon was used to perform angioplasty of the left proximal superficial femoral vein. Due to the indwelling stents within the left common iliac vein, external iliac vein, and infrarenal IVC, the balloons ruptured many times during inflations requiring removal and replacement with a new balloon. One of the balloons fractured in half and required over the wire snaring of the distal fragment. All of the fragments were removed. Digital subtraction angiography was performed demonstrating improved only mild residual narrowing of the left common femoral vein, but there was still thrombus within the left external iliac vein and common iliac vein. There is more thrombus than noted previously which could be due to mobilization of some of the peripheral clot. 8 Trinidadian MPA guide catheter was used to aspirate most of the thrombus, and subsequently repeat angioplasty was performed of the left common iliac vein, external iliac vein, and common femoral vein. Digital subtraction angiography was performed demonstrating excellent flow through the left superficial femoral vein, common femoral vein, external iliac vein, common iliac vein, and through the IVC stent passing through the Optese filter. At this point, all wires, catheters, and sheath were removed. Pressure was held until hemostasis was achieved. Sterile dressing was applied. Dermabond was applied to the insights prior to sterile dressing. Osvaldo bandage was applied and pressure dressing was applied. CAMRON hose applied. The patient was provided 10 mg of Eliquis by mouth. FINDINGS: Please see procedure note above. IMPRESSION: 1. Successful mechanical thrombectomy of the left lower extremity venous system 2. Successful venography and thrombolytic catheter removal of the left lower extremity. 3. Angioplasty of the left superficial femoral vein. 4. Angioplasty of the left common femoral vein. 5. Angioplasty of the left external iliac vein. 6. Angioplasty of the left common iliac vein. 7. Angioplasty of the inferior vena cava.
[2017-01-12] MEDS: ELIQUIS PO SCH ×2 (16:05→21:21)
[2017-01-12] MEDS ORDERED: HYDROCORTISONE CR TP PRN (18:45)
[2017-01-12] MEDS: COLACE PO SCH (21:20)
[2017-01-12] MEDS: PEPCID PO SCH (21:21)
[2017-01-12] MEDS ORDERED: VISTARIL IM STA (22:14)
[2017-01-13] MEDS: ZANAFLEX PO PRN (03:50)
[2017-01-13] MEDS ORDERED: DILAUDID PO ONE (04:15)
--- NOTE | 2017-01-13 10:22 | Consultation ---
ADDENDUM LABORATORY DATA: White cell count 3700 at admission with a hemoglobin of 12.9, hematocrit of 39.3 and platelet count of 151. No band forms reported. INR 1.07. Serum sodium 143, potassium 4.4, chloride 104, bicarbonate 29, BUN 10, creatinine 0.7, and glucose of 98. Today hemoglobin is 13.1 with hematocrit of 39.2. No microbiology studies, no radiographic studies for review. ASSESSMENT AND PLAN: 1. 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 2. Acute allergic reaction to IV HEPARIN with development of rash that has cleared and erythema and itching. 3. Gastroesophageal reflux disease. 4. Obesity. PLAN: 1. We will watch her in the Intensive Care Unit while she is on thrombolytic therapy via the EKOS thrombolytic catheter system. 2. She will be on continued on Benadryl to control her itching. 3. I will start GI prophylaxis with double dose PPI therapy in the short term as she is on thrombolytics and anticoagulation without any GI prophylaxis at this point. 4. We will follow her H and H to ensure that there is no occult bleeding. 5. Analgesia will be given to control ischemia related pain. 6. Flu and pneumonia vaccination will be per protocol. Thank you very much for the consult Dr. Khan. We will follow along. Hopefully, she does well and can be transferred out of the Intensive Care Unit in short term. I have also taken the time to apologize for any discomfort she suffered overnight while we were trying to get necessary medication to control her itching and pain and she has accepted this. At this point, I have spent a total of about encounter. JOB# [id number] KATLYN/IGNACIA
--- NOTE | 2017-01-13 10:28 | Consultation ---
CONSULTING PHYSICIAN: Dr. Khan. REASON FOR CONSULTATION: Need for ICU admission, status post acute limb ischemia and status post thrombolytic therapy. CHIEF COMPLAINT AND HISTORY OF PRESENT ILLNESS: The patient is a 56-year-old -[place] female with past medical history significant for venous thromboembolic phenomenon who was initially seen for phlegmasia requiring IVC reconstruction for extensive iliac and caval thrombus. She represented to the Emergency Room yesterday with re-thrombosis of the left lower extremity with severe pain and swelling. Discussion was had after evaluation in the ER and the plan was to take her in for thrombolysis. This was done for an iliofemoral left lower extremity DVT, post-thrombolytic therapy. She was brought into the intensive care unit. Of note, she reports a heparin allergy that causes other things, hives and pain around the jaw. When I asked her if this is the same exact reaction that she has had before because she did have a reaction yesterday night, she said yes it was. She denied acute chest pain. She denied any nausea, vomiting, or overt aspiration. She denied fevers or chills. She denied any pleurisy of any type. She denied any bleeding diathesis since she had been on IV heparin and since the thrombolysis. Now with regards to tobacco use she denies any history of tobacco use whatsoever. That is as much of the history of presentation as I have. PAST MEDICAL HISTORY: Venous thromboembolic phenomenon. She has a history of gastroesophageal reflux disease. PAST SURGICAL HISTORY: She had infection to the right leg with a wound VAC and she has had IVC filter placement I believe and removal. MEDICATIONS: She was on at the time I stopped by to see her, according to the medication administration record, included the following: She was on Eliquis 10 mg p.o. q. 12 hours. She was on IV heparin through the ecosystem, she was on Benadryl 25 mg IV q. 6 hours p.r.n. itching, Colace 100 mg p.o. b.i.d., Dilaudid 0.5 mg IV q. 3 hours p.r.n. severe pain, Zofran 4 mg IV q. 8 hours p.r.n. ALLERGIES: TYLENOL, HYDROCODONE, OXYCODONE, PENICILLINS, AND APPARENTLY TO HEPARIN. DIET: Well built lady, slightly obese, denies acute weight loss or gain in the preceding few weeks to months. FAMILY AND SOCIAL HISTORY: Lives in the community. Denies alcohol, tobacco, or illicit drug use or abuse. Denies any family history of thromboembolic phenomenon. REVIEW OF SYSTEMS: A complete 13-system review of systems was obtained. She denies any chest pains. She denies palpitations. She denies cough or hemoptysis. She complains of some heartburn. She denies new onset focal weakness. Pertinent positives and negatives as in body of the history above, otherwise they are noncontributory. PHYSICAL EXAMINATION: VITAL SIGNS: At presentation in the emergency room, she was afebrile and since then she has remained afebrile. Current temperature 98.7, pulse of 74, respiratory rate of 14, blood pressure 122/65, oxygen sats were 99%, inspired oxygen concentration was not recorded. She was on room air when I saw her. HEAD, EYES, EARS, NOSE AND THROAT: She was normocephalic, atraumatic. She had mild blanching erythema around the face, around her neck, and some redness to really her skin overall. No rash was on her face. She was atraumatic, otherwise. Appeared in mild non-respiratory distress. Oropharynx shows moist. No oropharyngeal erythema. No oropharyngeal ulcers. Mallampati #2. Grossly no jugular venous distention, no goiter. GENERAL EXAM: As above. LUNGS: Auscultation of both lung bonds were unremarkable. Lungs are clear to auscultation bilaterally. HEART: Heart sounds 1 and 2 are heard, regular rate and rhythm. No rubs, no murmurs, no carotid bruit was auscultated. ABDOMEN: Soft, bowel sounds positive. Mild epigastric tenderness. No hepatosplenomegaly. EXTREMITIES: Without overt digital clubbing, no cyanosis, no pedal edema. She has a scar to the medial side of her right leg, well-healed scar from prior surgery. NEUROLOGIC: She moved all 4 extremities spontaneously. Again, pupils are equal, round, reactive to light and accommodation. Extraocular muscle movements were intact. The skin showed mild erythema. No obvious rashes or blisters. Otherwise, it was of normal skin turgor. No tenting. LABORATORY DATA: For my review are as follows. JOB# [id number] AJM/NTS
[2017-01-13] MEDS: COLACE PO SCH ×2 (10:37→21:08)
[2017-01-13] MEDS: ELIQUIS PO SCH ×2 (10:37→21:08)
[2017-01-13] MEDS: PEPCID PO SCH ×2 (10:39→21:08)
[2017-01-13] MEDS: MORPHINE IV PRN (12:47)
--- NOTE | 2017-01-13 14:19 | Progress Note ---
Assessment and Plan Assessment and plan: Acute DVT left lower ext, s/p EKOS catheter placement, thrombolysis. Heparin drip discontinued becuse of allergic reaction. Vasc Surgery is Primary Physician. Fever. Will obtain Blood cultures x2, Urine cultures and urinalysis. Acute allergic Reaction to Heparin, now discontinued. GERD. On Protonix Full code status History Interval history: Pain left lower extremity, Fever Hospitalist Physical - Physical exam Narrative exam: Gen Appearance: Not in acute distress, morbidly obese HEENT: normocephalic, atraumatic Neck: supple, no JVD Lungs: Clear to auscultation, no rales, no wheezing, Heart: S1 and S2 regular, no murmurs,no rubs or gallop, Abdomen: Soft , non tender, non distended, normal bowel sounds Extremity: Trace edema, no clubbing or cyanosis, Neuro : Awake,alert, oriented x 3, normal speech, moves all extremities Psych: Normal mood - Constitutional Vitals: Temp Pulse Resp BP Pulse Ox 102.8 F H 96 H 20 141/55 100 01/13/17 13:00 01/13/17 13:00 01/13/17 13:00 01/13/17 13:00 01/13/17 04:01 General appearance: Present: no acute distress, well-nourished Results - Labs CBC & Chem 7: 01/13/17 15:25 01/13/17 15:37 Labs: Laboratory Last Values WBC 8.6 K/mm3 (4.5-11.0) 01/12/17 04:50 RBC 4.30 M/mm3 (3.65-5.03) 01/12/17 04:50 Hgb 13.1 gm/dl (10.1-14.3) 01/12/17 04:50 Hct 39.2 % (30.3-42.9) 01/12/17 04:50 MCV 91 fl (79-97) 01/12/17 04:50 MCH 30 pg (28-32) 01/12/17 04:50 MCHC 33 % (30-34) 01/12/17 04:50 RDW 14.4 % (13.2-15.2) 01/12/17 04:50 Plt Count 121 K/mm3 (140-440) L 01/12/17 04:50 Lymph % (Auto) Not Reportable 01/11/17 16:03 [place] % (Auto) Not Reportable 01/11/17 16:03 Eos % (Auto) Not Reportable 01/11/17 16:03 Baso % (Auto) Not Reportable 01/11/17 16:03 Lymph # Not Reportable 01/11/17 16:03 [place] # Not Reportable 01/11/17 16:03 Eos # Not Reportable 01/11/17 16:03 Baso # Not Reportable 01/11/17 16:03 Add Manual Diff Complete 01/12/17 04:50 Total Counted 100 01/12/17 04:50 Seg Neutrophils % Dog Beautician 01/12/17 04:50 Seg Neuts % (Manual) 97.0 % (40.0-70.0) H 01/12/17 04:50 Band Neutrophils % 1.0 % 01/12/17 04:50 Lymphocytes % (Manual) 1.0 % (13.4-35.0) L 01/12/17 04:50 Reactive Lymphs % (Man) 0 % 01/12/17 04:50 Monocytes % (Manual) 1.0 % (0.0-7.3) 01/12/17 04:50 Eosinophils % (Manual) 0 % (0.0-4.3) 01/12/17 04:50 Basophils % (Manual) 0 % (0.0-1.8) 01/12/17 04:50 Metamyelocytes % 0 % 01/12/17 04:50 Myelocytes % 0 % 01/12/17 04:50 Promyelocytes % 0 % 01/12/17 04:50 Blast Cells % 0 % 01/12/17 04:50 Nucleated RBC % Not Reportable 01/12/17 04:50 Seg Neutrophils # Not Reportable 01/11/17 16:03 Seg Neutrophils # Man 8.3 K/mm3 (1.8-7.7) H 01/12/17 04:50 Band Neutrophils # 0.1 K/mm3 01/12/17 04:50 Lymphocytes # (Manual) 0.1 K/mm3 (1.2-5.4) L 01/12/17 04:50 Abs React Lymphs (Man) 0.0 K/mm3 01/12/17 04:50 Monocytes # (Manual) 0.1 K/mm3 (0.0-0.8) 01/12/17 04:50 Eosinophils # (Manual) 0.0 K/mm3 (0.0-0.4) 01/12/17 04:50 Basophils # (Manual) 0.0 K/mm3 (0.0-0.1) 01/12/17 04:50 Metamyelocytes # 0.0 K/mm3 01/12/17 04:50 Myelocytes # 0.0 K/mm3 01/12/17 04:50 Promyelocytes # 0.0 K/mm3 01/12/17 04:50 Blast Cells # 0.0 K/mm3 01/12/17 04:50 WBC Morphology Not Reportable 01/12/17 04:50 Hypersegmented Neuts Not Reportable 01/12/17 04:50 Hyposegmented Neuts Not Reportable 01/12/17 04:50 Hypogranular Neuts Not Reportable 01/12/17 04:50 Smudge Cells Not Reportable 01/12/17 04:50 Toxic Granulation Not Reportable 01/12/17 04:50 Toxic Vacuolation Not Reportable 01/12/17 04:50 Dohle Bodies Not Reportable 01/12/17 04:50 Pelger-Huet Anomaly Not Reportable 01/12/17 04:50 Martina Rods Not Reportable 01/12/17 04:50 Platelet Estimate Appears normal 01/12/17 04:50 Clumped Platelets Not Reportable 01/12/17 04:50 Plt Clumps, EDTA Not Reportable 01/12/17 04:50 Large Platelets Not Reportable 01/12/17 04:50 Giant Platelets Not Reportable 01/12/17 04:50 Platelet Satelliting Not Reportable 01/12/17 04:50 Plt Morphology Comment Not Reportable 01/12/17 04:50 RBC Morphology Not Reportable 01/12/17 04:50 Dimorphic RBCs Not Reportable 01/12/17 04:50 Polychromasia Not Reportable 01/12/17 04:50 Hypochromasia Not Reportable 01/12/17 04:50 Poikilocytosis Not Reportable 01/12/17 04:50 Anisocytosis Rare 01/12/17 04:50 Microcytosis Not Reportable 01/12/17 04:50 Macrocytosis Not Reportable 01/12/17 04:50 Spherocytes Not Reportable 01/12/17 04:50 Pappenheimer Bodies Not Reportable 01/12/17 04:50 Sickle Cells Not Reportable 01/12/17 04:50 Target Cells Not Reportable 01/12/17 04:50 Tear Drop Cells Not Reportable 01/12/17 04:50 Ovalocytes Not Reportable 01/12/17 04:50 Helmet Cells Not Reportable 01/12/17 04:50 [place] Bodies Not Reportable 01/12/17 04:50 [place] Rings Not Reportable 01/12/17 04:50 [place] Cells Not Reportable 01/12/17 04:50 Bite Cells Not Reportable 01/12/17 04:50 Crenated Cell Not Reportable 01/12/17 04:50 Elliptocytes Not Reportable 01/12/17 04:50 Acanthocytes (Spur) Not Reportable 01/12/17 04:50 Rouleaux Not Reportable 01/12/17 04:50 Hemoglobin C Crystals Not Reportable 01/12/17 04:50 Schistocytes Not Reportable 01/12/17 04:50 Malaria parasites Not Reportable 01/12/17 04:50 [place] Bodies Not Reportable 01/12/17 04:50 Hem Pathologist Commnt No 01/12/17 04:50 PT 14.4 Sec. (12.2-14.9) 01/11/17 08:57 INR 1.07 (0.87-1.13) 01/11/17 08:57 APTT 24.8 Sec. (24.2-36.6) 01/11/17 08:57 Fibrinogen 284 mg/dl (211-480) 01/12/17 04:50 Heparin Anti-Xa Level 0.26 U.I./ml (0.3-0.7) L 01/12/17 04:50 Sodium 139 mmol/L (137-145) 01/12/17 04:50 Potassium 4.1 mmol/L (3.6-5.0) 01/12/17 04:50 Chloride 102.8 mmol/L (98-107) 01/12/17 04:50 Carbon Dioxide 23 mmol/L (22-30) 01/12/17 04:50 Anion Gap 17 mmol/L 01/12/17 04:50 BUN 10 mg/dL (7-17) 01/12/17 04:50 Creatinine 0.6 mg/dL (0.7-1.2) L 01/12/17 04:50 Estimated GFR > 60 ml/min 01/12/17 04:50 BUN/Creatinine Ratio 17 % 01/12/17 04:50 Glucose 134 mg/dL (65-100) H 01/12/17 04:50 Calcium 8.6 mg/dL (8.4-10.2) 01/12/17 04:50
[2017-01-13 16:03] LABS: Hematocrit 34.3 % (30.3-42.9); Hemoglobin 11.5 gm/dl (10.1-14.3); Mean Corpuscular HGB Conc 34 % (30-34); Mean Corpuscular Hemoglobin 30 pg (28-32); Mean Corpuscular Volume 90 fl (79-97); Red Blood Count 3.79 M/mm3 (3.65-5.03); Red Cell Distribution Width 14.4 % (13.2-15.2); White Blood Count 5.1 K/mm3 (4.5-11.0)
[2017-01-13 16:11] LABS: Platelet Count 94 K/mm3 (140-440)
[2017-01-13 16:12] LABS: Anion Gap 15 mmol/L; BUN/Creatinine Ratio 16; Blood Urea Nitrogen 11 mg/dL (7-17); Calcium 7.9 mg/dL (8.4-10.2); Carbon Dioxide 26 mmol/L (22-30); Chloride 99.5 mmol/L (98-107); Glucose 100 mg/dL (65-100); Potassium 4.2 mmol/L (3.6-5.0); Sodium 136 mmol/L (137-145)
--- NOTE | 2017-01-13 16:20 | Progress Note ---
Assessment and Plan Recurrent VTE Allergic Reaction to non specified medication HTN ...doing better and out of ICU; will sign off please reconsult as needed Subjective Date of service: 01/13/17 Principal diagnosis: ileofemoral LLE DVT Interval history: Patient is seen today for: Acute DVT s/p EkOS Seen and examined at bedside; 24hour events reviewed; nursing and respiratory care staff consulted; no adverse overnight events reported to me; doing well; limb warm; no recurrence of allergic reaction; No N/V/F/C; no chest pains or palpitations Objective Vital Signs - 12hr 01/13/17 01/13/17 01/13/17 06:00 06:34 08:00 Temperature 98.1 F 100.1 F H Pulse Rate 70 85 Pulse Rate [ 70 Left] Respiratory 18 18 Rate Blood Pressure 130/75 [Left] 01/13/17 13:00 Temperature 102.8 F H Pulse Rate 96 H Pulse Rate [ Left] Respiratory 20 Rate Blood Pressure 141/55 [Left] Constitutional: no acute distress, alert Eyes: non-icteric ENT: oropharynx moist, other (no goiter) Neck: supple, no lymphadenopathy Effort: normal Ascultation: Bilateral: clear Cardiovascular: regular rate and rhythm, other (no R/M) Gastrointestinal: normoactive bowel sounds, soft, non-tender, non-distended Integumentary: other (mild erythema around neck and lower extremities) Extremities: no cyanosis, no edema, pulses normal, no ischemia or petechiae, other (warm to touch) Neurologic: normal mental status, non-focal exam, pupils equal and round, motor strength normal and Psychiatric: mood appropriate, affect normal CBC and BMP: 01/14/17 08:19 01/14/17 08:19 ABG, PT/INR, D-dimer: PT/INR, D-dimer PT 14.4 Sec. (12.2-14.9) 01/11/17 08:57 INR 1.07 (0.87-1.13) 01/11/17 08:57 Abnormal lab findings: Abnormal Labs 01/11/17 01/11/17 01/11/17 08:57 16:03 16:03 WBC 3.7 L 3.6 L Plt Count Lymph % (Auto) 43.4 H [place] % (Auto) 15.3 H Seg Neuts % (Manual) 80.0 H Lymphocytes % (Manual) 8.0 L Seg Neutrophils # 1.5 L Seg Neutrophils # Man Lymphocytes # (Manual) 0.3 L Heparin Anti-Xa Level 0.80 H Sodium Creatinine Glucose Calcium 01/11/17 01/12/17 01/12/17 21:22 04:50 04:50 WBC Plt Count 121 L Lymph % (Auto) [place] % (Auto) Seg Neuts % (Manual) 84.0 H 97.0 H Lymphocytes % (Manual) 5.0 L 1.0 L Seg Neutrophils # Seg Neutrophils # Man 8.3 H Lymphocytes # (Manual) 0.3 L 0.1 L Heparin Anti-Xa Level 0.26 L Sodium Creatinine Glucose Calcium 01/12/17 01/13/17 01/13/17 04:50 15:25 15:37 WBC Plt Count 94 L Lymph % (Auto) [place] % (Auto) Seg Neuts % (Manual) Lymphocytes % (Manual) Seg Neutrophils # Seg Neutrophils # Man Lymphocytes # (Manual) Heparin Anti-Xa Level Sodium 136 L Creatinine 0.6 L Glucose 134 H Calcium 7.9 L
[2017-01-13] MEDS ORDERED: VANCOMYCIN PHARMACY TO DOSE IV SCH (18:00)
[2017-01-13] MEDS ORDERED: VANCOMYCIN VIAL IV ONE (18:30)
[2017-01-13] MEDS: LEVAQUIN 750MG/150ML 750 MG/150 ML BAG IV SCH (18:36)
[2017-01-13] MEDS: NACL 0.9% 1000 ML 1,000 ML IV SCH (20:11)
[2017-01-13] MEDS: ZOFRAN IV PRN (20:12)
[2017-01-13] MEDS: DILAUDID IV PRN (20:12)
[2017-01-13] MEDS ORDERED: VANCOMYCIN 2,000 MG in NACL 0.9% 500 ML 500 ML IV ONE (20:15)
[2017-01-13 22:00] LABS: Bilirubin,Urine NEG (Negative); Blood,Urine SM (Negative); Ketones,Urine NEG (Negative); Leukocyte Esterase,Urine NEG (Negative); Nitrite,Urine NEG (Negative); Protein,Urine <15 mg/dL mg/dL (Negative); RBC,Urine < 1.0 /HPF (0.0-6.0); Urobilinogen,Urine < 2.0 mg/dL (<2.0); WBC,Urine < 1.0 /HPF (0.0-6.0)
[2017-01-14] MEDS: TYLENOL PO PRN ×5 (00:21→20:37)
[2017-01-14] MEDS: ZANAFLEX PO PRN (00:21)
[2017-01-14] MEDS: DILAUDID IV PRN ×3 (03:01→17:32)
[2017-01-14] MEDS: VANCOMYCIN 1,500 MG in NACL 0.9% 500 ML 500 ML IV SCH ×2 (05:42→18:46)
[2017-01-14] MEDS: MORPHINE IV PRN ×2 (05:45→21:30)
[2017-01-14] MEDS: NACL 0.9% 1000 ML 1,000 ML IV SCH ×2 (05:45→19:00)
[2017-01-14 08:44] LABS: Hematocrit 35.1 % (30.3-42.9); Hemoglobin 11.7 gm/dl (10.1-14.3); Mean Corpuscular HGB Conc 33 % (30-34); Mean Corpuscular Hemoglobin 30 pg (28-32); Mean Corpuscular Volume 91 fl (79-97); Platelet Count 75 K/mm3 (140-440); Red Blood Count 3.88 M/mm3 (3.65-5.03); Red Cell Distribution Width 14.5 % (13.2-15.2)
[2017-01-14 08:57] LABS: Anion Gap 14 mmol/L; BUN/Creatinine Ratio 10; Blood Urea Nitrogen 8 mg/dL (7-17); Calcium 7.8 mg/dL (8.4-10.2); Carbon Dioxide 26 mmol/L (22-30); Chloride 99.3 mmol/L (98-107); Glucose 103 mg/dL (65-100); Sodium 135 mmol/L (137-145)
[2017-01-14] MEDS: ZOFRAN IV PRN (09:39)
[2017-01-14] MEDS: LEVAQUIN 750MG/150ML 750 MG/150 ML BAG IV SCH (10:22)
[2017-01-14] MEDS: PEPCID PO SCH ×2 (10:24→21:30)
[2017-01-14] MEDS: ELIQUIS PO SCH ×2 (10:24→21:31)
[2017-01-14] MEDS: COLACE PO SCH ×2 (10:24→21:30)
--- NOTE | 2017-01-14 10:57 | XRay Report ---
AP CHEST: HISTORY: Fever AP view of the chest demonstrates a normal mediastinal and cardiac contour with clear lungs and normal bony and soft tissue structures. IMPRESSION: Unremarkable AP chest.
--- NOTE | 2017-01-14 11:06 | Progress Note ---
Assessment and Plan Patient remains feverish. She was started on empiric antibiotics by the hospitalist. We will consult infectious disease for their recommendations. Subjective Date of service: 01/14/17 Principal diagnosis: ileofemoral LLE DVT Interval history: Patient with a history of DVT who has now been treated and her deep venous system opened. Following her treatment, the patient became feverish, blood cultures been drawn. The patient's temperature remained elevated all night which is reflected in the nurse's notes however, not in the chart. Objective - Constitutional Vitals: Vital Signs - 12hr 01/14/17 01/14/17 01/14/17 01:00 04:00 10:22 Temperature 99.5 F 98.6 F Pulse Rate 93 H 98 H Respiratory 18 18 20 Rate Blood Pressure 135/71 103/54 [Left] O2 Sat by Pulse 99 99 Oximetry General appearance: Present: no acute distress - EENT Eyes: PERRL, EOM intact ENT: hearing intact - Neck Neck: supple, normal ROM - Respiratory Respiratory effort: normal - Breasts Breasts: deferred Extremities: no ischemia Extremity abnormal: edema - Gastrointestinal General gastrointestinal: Present: deferred - Genitourinary Female genitourinary: deferred - Integumentary Integumentary: clear, warm - Neurologic Neurologic: no focal deficits - Psychiatric Psychiatric: appropriate mood/affect, cooperative - Labs CBC & Chem 7: 01/14/17 08:19 01/14/17 08:19 Labs: Abnormal lab results 01/13/17 01/13/17 01/13/17 Range/Units 15:25 15:37 21:18 WBC (4.5-11.0) K/mm3 Plt Count 94 L (140-440) K/mm3 Sodium 136 L (137-145) mmol/L Glucose (65-100) mg/dL Calcium 7.9 L (8.4-10.2) mg/dL Urine pH 8.0 H (5.0-7.0) 01/14/17 01/14/17 Range/Units 08:19 08:19 WBC 4.0 L (4.5-11.0) K/mm3 Plt Count 75 L (140-440) K/mm3 Sodium 135 L (137-145) mmol/L Glucose 103 H (65-100) mg/dL Calcium 7.8 L (8.4-10.2) mg/dL Urine pH (5.0-7.0)
--- NOTE | 2017-01-14 11:40 | Progress Note ---
Assessment and Plan Assessment and plan: Acute DVT left lower ext, iliofemoral thrombosis. She has chronic recuurent DVTs. s/p EKOS catheter placement, thrombolysis. Heparin drip discontinued becuse of allergic reaction. Vasc Surgery is Primary Physician. Fever. WBC normal, Blood cultures x2 drawn. Urinalysis unremarkable, chest x ray negative. I discussed case with Dr. Real and recommend consult to ID Physician. Acute allergic Reaction to Heparin, now discontinued. GERD. On Protonix Full code status History Interval history: Pain left lower extremity, Fever,recurrent Hospitalist Physical - Physical exam Narrative exam: Gen Appearance: Not in acute distress, morbidly obese HEENT: normocephalic, atraumatic Neck: supple, no JVD Lungs: Clear to auscultation, no rales, no wheezing, Heart: S1 and S2 regular, no murmurs,no rubs or gallop, Abdomen: Soft , non tender, non distended, normal bowel sounds Extremity: Trace edema, no clubbing or cyanosis, Neuro : Awake,alert, oriented x 3, normal speech, moves all extremities Psych: Normal mood - Constitutional Vitals: Temp Pulse Resp BP Pulse Ox 98.6 F 98 H 20 103/54 99 01/14/17 04:00 01/14/17 04:00 01/14/17 10:22 01/14/17 04:00 01/14/17 04:00 General appearance: Present: no acute distress Results - Labs CBC & Chem 7: 01/14/17 08:19 01/14/17 08:19 Labs: Laboratory Last Values WBC 4.0 K/mm3 (4.5-11.0) L 01/14/17 08:19 RBC 3.88 M/mm3 (3.65-5.03) 01/14/17 08:19 Hgb 11.7 gm/dl (10.1-14.3) 01/14/17 08:19 Hct 35.1 % (30.3-42.9) 01/14/17 08:19 MCV 91 fl (79-97) 01/14/17 08:19 MCH 30 pg (28-32) 01/14/17 08:19 MCHC 33 % (30-34) 01/14/17 08:19 RDW 14.5 % (13.2-15.2) 01/14/17 08:19 Plt Count 75 K/mm3 (140-440) L 01/14/17 08:19 Lymph % (Auto) Not Reportable 01/11/17 16:03 [place] % (Auto) Not Reportable 01/11/17 16:03 Eos % (Auto) Not Reportable 01/11/17 16:03 Baso % (Auto) Not Reportable 01/11/17 16:03 Lymph # Not Reportable 01/11/17 16:03 [place] # Not Reportable 01/11/17 16:03 Eos # Not Reportable 01/11/17 16:03 Baso # Not Reportable 01/11/17 16:03 Add Manual Diff Complete 01/12/17 04:50 Total Counted 100 01/12/17 04:50 Seg Neutrophils % Boom Crane Operator 01/12/17 04:50 Seg Neuts % (Manual) 97.0 % (40.0-70.0) H 01/12/17 04:50 Band Neutrophils % 1.0 % 01/12/17 04:50 Lymphocytes % (Manual) 1.0 % (13.4-35.0) L 01/12/17 04:50 Reactive Lymphs % (Man) 0 % 01/12/17 04:50 Monocytes % (Manual) 1.0 % (0.0-7.3) 01/12/17 04:50 Eosinophils % (Manual) 0 % (0.0-4.3) 01/12/17 04:50 Basophils % (Manual) 0 % (0.0-1.8) 01/12/17 04:50 Metamyelocytes % 0 % 01/12/17 04:50 Myelocytes % 0 % 01/12/17 04:50 Promyelocytes % 0 % 01/12/17 04:50 Blast Cells % 0 % 01/12/17 04:50 Nucleated RBC % Not Reportable 01/12/17 04:50 Seg Neutrophils # Not Reportable 01/11/17 16:03 Seg Neutrophils # Man 8.3 K/mm3 (1.8-7.7) H 01/12/17 04:50 Band Neutrophils # 0.1 K/mm3 01/12/17 04:50 Lymphocytes # (Manual) 0.1 K/mm3 (1.2-5.4) L 01/12/17 04:50 Abs React Lymphs (Man) 0.0 K/mm3 01/12/17 04:50 Monocytes # (Manual) 0.1 K/mm3 (0.0-0.8) 01/12/17 04:50 Eosinophils # (Manual) 0.0 K/mm3 (0.0-0.4) 01/12/17 04:50 Basophils # (Manual) 0.0 K/mm3 (0.0-0.1) 01/12/17 04:50 Metamyelocytes # 0.0 K/mm3 01/12/17 04:50 Myelocytes # 0.0 K/mm3 01/12/17 04:50 Promyelocytes # 0.0 K/mm3 01/12/17 04:50 Blast Cells # 0.0 K/mm3 01/12/17 04:50 WBC Morphology Not Reportable 01/12/17 04:50 Hypersegmented Neuts Not Reportable 01/12/17 04:50 Hyposegmented Neuts Not Reportable 01/12/17 04:50 Hypogranular Neuts Not Reportable 01/12/17 04:50 Smudge Cells Not Reportable 01/12/17 04:50 Toxic Granulation Not Reportable 01/12/17 04:50 Toxic Vacuolation Not Reportable 01/12/17 04:50 Dohle Bodies Not Reportable 01/12/17 04:50 Pelger-Huet Anomaly Not Reportable 01/12/17 04:50 Martina Rods Not Reportable 01/12/17 04:50 Platelet Estimate Appears normal 01/12/17 04:50 Clumped Platelets Not Reportable 01/12/17 04:50 Plt Clumps, EDTA Not Reportable 01/12/17 04:50 Large Platelets Not Reportable 01/12/17 04:50 Giant Platelets Not Reportable 01/12/17 04:50 Platelet Satelliting Not Reportable 01/12/17 04:50 Plt Morphology Comment Not Reportable 01/12/17 04:50 RBC Morphology Not Reportable 01/12/17 04:50 Dimorphic RBCs Not Reportable 01/12/17 04:50 Polychromasia Not Reportable 01/12/17 04:50 Hypochromasia Not Reportable 01/12/17 04:50 Poikilocytosis Not Reportable 01/12/17 04:50 Anisocytosis Rare 01/12/17 04:50 Microcytosis Not Reportable 01/12/17 04:50 Macrocytosis Not Reportable 01/12/17 04:50 Spherocytes Not Reportable 01/12/17 04:50 Pappenheimer Bodies Not Reportable 01/12/17 04:50 Sickle Cells Not Reportable 01/12/17 04:50 Target Cells Not Reportable 01/12/17 04:50 Tear Drop Cells Not Reportable 01/12/17 04:50 Ovalocytes Not Reportable 01/12/17 04:50 Helmet Cells Not Reportable 01/12/17 04:50 Mata-[place] Bodies Not Reportable 01/12/17 04:50 [place] Rings Not Reportable 01/12/17 04:50 [place] Cells Not Reportable 01/12/17 04:50 Bite Cells Not Reportable 01/12/17 04:50 Crenated Cell Not Reportable 01/12/17 04:50 Elliptocytes Not Reportable 01/12/17 04:50 Acanthocytes (Spur) Not Reportable 01/12/17 04:50 Rouleaux Not Reportable 01/12/17 04:50 Hemoglobin C Crystals Not Reportable 01/12/17 04:50 Schistocytes Not Reportable 01/12/17 04:50 Malaria parasites Not Reportable 01/12/17 04:50 [place] Bodies Not Reportable 01/12/17 04:50 Hem Pathologist Commnt No 01/12/17 04:50 PT 14.4 Sec. (12.2-14.9) 01/11/17 08:57 INR 1.07 (0.87-1.13) 01/11/17 08:57 APTT 24.8 Sec. (24.2-36.6) 01/11/17 08:57 Fibrinogen 284 mg/dl (211-480) 01/12/17 04:50 Heparin Anti-Xa Level 0.26 U.I./ml (0.3-0.7) L 01/12/17 04:50 Sodium 135 mmol/L (137-145) L 01/14/17 08:19 Potassium 4.0 mmol/L (3.6-5.0) 01/14/17 08:19 Chloride 99.3 mmol/L (98-107) 01/14/17 08:19 Carbon Dioxide 26 mmol/L (22-30) 01/14/17 08:19 Anion Gap 14 mmol/L 01/14/17 08:19 BUN 8 mg/dL (7-17) 01/14/17 08:19 Creatinine 0.8 mg/dL (0.7-1.2) 01/14/17 08:19 Estimated GFR > 60 ml/min 01/14/17 08:19 BUN/Creatinine Ratio 10 % 01/14/17 08:19 Glucose 103 mg/dL (65-100) H 01/14/17 08:19 Lactic Acid 1.80 mmol/L (0.7-2.0) 01/13/17 15:25 Calcium 7.8 mg/dL (8.4-10.2) L 01/14/17 08:19 Urine Color Straw (Yellow) 01/13/17 21:18 Urine Turbidity Clear (Clear) 01/13/17 21:18 Urine pH 8.0 (5.0-7.0) H 01/13/17 21:18 Ur Specific [place] 1.004 (1.003-1.030) 01/13/17 21:18 Urine Protein <15 mg/dl mg/dL (Negative) 01/13/17 21:18 Urine Glucose (UA) Neg mg/dL (Negative) 01/13/17 21:18 Urine Ketones Neg mg/dL (Negative) 01/13/17 21:18 Urine Blood Sm (Negative) 01/13/17 21:18 Urine Nitrite Neg (Negative) 01/13/17 21:18 Urine Bilirubin Neg (Negative) 01/13/17 21:18 Urine Urobilinogen < 2.0 mg/dL (<2.0) 01/13/17 21:18 Ur Leukocyte Esterase Neg (Negative) 01/13/17 21:18 Urine WBC (Auto) < 1.0 /HPF (0.0-6.0) 01/13/17 21:18 Urine RBC (Auto) < 1.0 /HPF (0.0-6.0) 01/13/17 21:18 U Epithel Cells (Auto) 1.0 /HPF (0-13.0) 01/13/17 21:18
[2017-01-15] MEDS: TYLENOL PO PRN ×2 (01:02→10:51)
[2017-01-15] MEDS: DILAUDID IV PRN ×3 (03:26→17:58)
[2017-01-15] MEDS: VANCOMYCIN 1,500 MG in NACL 0.9% 500 ML 500 ML IV SCH (06:12)
[2017-01-15] MEDS: NACL 0.9% 1000 ML 1,000 ML IV SCH (06:13)
[2017-01-15] MEDS: MORPHINE IV PRN (08:51)
[2017-01-15] MEDS: LEVAQUIN 750MG/150ML 750 MG/150 ML BAG IV SCH ×2 (10:48→11:29)
[2017-01-15] MEDS: PEPCID PO SCH (10:49)
[2017-01-15] MEDS: ELIQUIS PO SCH ×2 (10:49→22:43)
[2017-01-15] MEDS: COLACE PO SCH ×2 (10:49→22:41)
--- NOTE | 2017-01-15 14:29 | Progress Note ---
Assessment and Plan Pt s/p thrombectomy/thrombolysis of ischemic lower ext upon admission. Pt states lower ext pain is currently resolved. Pt's Plt ct dropped to 73. Previous HIT labs have been negative. Given current thrombocytopenia and a history of multiple heparin exposures, we will repeat the labs to verify that the pt has not converted to HIT positive. Prior to d/c, pt developed fever and chills up to ~103. Pt developed bilat upper ext swelling overnight. U/s neg. for DVT. ID consulted to further eval. - Patient Problems (1) Swelling of both upper extremities Current Visit: Yes Status: Acute (2) Fever and chills Current Visit: Yes Status: Acute (3) Thrombocytopenia Current Visit: No Status: Acute Subjective Date of service: 01/15/17 Principal diagnosis: ileofemoral LLE DVT Interval history: Pt awake and alert. C/o Fvr, chills, and upper ext swelling. Objective - Constitutional Vitals: Vital Signs - 12hr 01/15/17 01/15/17 01/15/17 03:26 04:20 08:58 Temperature 100.6 F H Pulse Rate 99 H Respiratory 20 20 Rate Respiratory 18 Rate [LEFT THIGH] Blood Pressure 113/50 [Left] O2 Sat by Pulse 98 Oximetry 01/15/17 01/15/17 10:58 13:35 Temperature 101.9 F H 100.4 F H Pulse Rate 102 H 89 Respiratory 18 18 Rate Respiratory Rate [LEFT THIGH] Blood Pressure 127/67 108/62 [Left] O2 Sat by Pulse 100 Oximetry General appearance: Present: no acute distress - EENT Eyes: EOM intact ENT: hearing intact - Respiratory Respiratory effort: normal Extremities: no ischemia Extremity abnormal: edema (bilat upper ext swelling with erythema.) - Neurologic Neurologic: no focal deficits - Psychiatric Psychiatric: appropriate mood/affect, intact judgment & insight, cooperative - Labs CBC & Chem 7: 01/14/17 08:19 01/14/17 08:19
--- NOTE | 2017-01-15 15:28 | Consultation ---
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 She had an episode of rethrombosis of her left lower extremity on 08/01/2016 due to an acute ileofemoral DVT. She had successful thrombolysis, but had poor followup and subsequently rethrombosed. Admitted on 01/11/2017 with rethrombosis of the left lower extremity with severe pain and swelling. Admission vitals signs were stable, temp 98.3, HR 54, BP 139/79. Initial WBC 3.7. Patient underwent successful thrombectomy and angioplasty of the left lower [id number]. Actually by 01/13/2017 patient*spike in fever at 100.1 which went up to 102.8 on continued to spike fevers since then. Lactic acid was drawn and was normal at 1.8. Blood cultures were negative. Urinalysis was negative. Chest x-ray was negative. Microbiology: Blood cultures: 01/13 ngtd Urine cultures: 01/13 ngtd Current Antimicrobials: Vancomycin 01/13 Previous Antimicrobials: Past History Past Medical History: DVT. denies: acute NE, atrial fib, arrhythmia, anemia, arthritis, CAD, cancer, COPD, diabetes, dialysis, heart failure, hepatitis, hypertension, hyperlipidemia, hypothyroidism, liver disease, PVD, renal failure , seizures, stroke Social history: , lives with family, full code Family history: no significant family history Medications and Allergies Allergies Allergy/AdvReac Type Severity Reaction Status Date / Time hydrocodone Allergy Hives Verified 01/11/17 20:20 oxycodone HCl [From Percocet] Allergy Hives Verified 07/19/15 15:02 Penicillins Allergy Itching Verified 01/11/17 10:39 Home Medications Medication Instructions Recorded Confirmed Last Taken Type Apixaban [Eliquis] 5 mg PO BID #30 tablet 08/06/16 01/11/17 01/09/17 Rx Tizanidine HCl [Tizanidine HCl] 2 mg PO TID 01/11/17 01/11/17 01/10/17 History Active Meds: Active Medications Acetaminophen (Tylenol) 650 mg PO Q4H PRN PRN Reason: Pain, Mild (1-3) Last Admin: 01/15/17 10:51 Dose: 650 mg Apixaban (Eliquis) 10 mg PO Q12HR BRUCE PRN Reason: Protocol Stop: 01/18/17 22:01 Last Admin: 01/15/17 10:49 Dose: 10 mg Apixaban (Eliquis) 5 mg PO Q12HR BRUCE PRN Reason: Protocol Diphenhydramine HCl (Benadryl) 25 mg IV Q6H PRN PRN Reason: Itching Last Admin: 01/12/17 21:21 Dose: 25 mg Docusate Sodium (Colace) 100 mg PO BID [facility] Last Admin: 01/15/17 10:49 Dose: 100 mg Famotidine (Pepcid) 20 mg PO BID [facility] Last Admin: 01/15/17 10:49 Dose: 20 mg Hydrocortisone Acetate (Hydrocortisone Cr) 1 applic TP TID PRN PRN Reason: Rash Hydromorphone HCl (Dilaudid) 0.5 mg IV Q3H PRN PRN Reason: Pain , Severe (7-10) Last Admin: 01/15/17 14:01 Dose: 0.5 mg Sodium Chloride (Nacl 0.9% 1000 Ml) 1,000 mls @ 125 mls/hr IV DIRECT [facility] Last Admin: 01/15/17 06:13 Dose: 125 mls/hr Levofloxacin/Dextrose (Levaquin 750mg/150ml) 750 mg in 150 mls @ 100 mls/hr IV Q24HR [facility]UCE PRN Reason: Protocol Last Admin: 01/15/17 11:29 Dose: Not Given Vancomycin HCl 1,500 mg/ (Sodium Chloride) 515 mls @ 333.333 mls/hr IV Q12H [facility] Last Admin: 01/15/17 06:12 Dose: 333.333 mls/hr Morphine Sulfate (Morphine) 2 mg IV Q4H PRN PRN Reason: Pain, Moderate (4-6) Last Admin: 01/15/17 08:51 Dose: 2 mg Ondansetron HCl (Zofran) 4 mg IV Q8H PRN PRN Reason: Nausea And Vomiting Last Admin: 01/14/17 09:39 Dose: 4 mg Tizanidine HCl (Zanaflex) 2 mg PO TID PRN PRN Reason: Muscle Spasm Last Admin: 01/14/17 00:21 Dose: 2 mg Vancomycin HCl (Vancomycin Pharmacy To Dose) 1 each IV PKCONSULT BRUCE PRN Reason: Protocol Review of Systems All systems: negative (fever/rash) Physical Examination - Physical Exam Narrative exam: General appearance: Alert in NAD, conversant Eyes: anicteric sclerae, moist conjunctivae; no lid-lag; PERRLA HENT: Atraumatic; oropharynx clear with moist mucous membranes and no mucosal ulcerations/no oral thrush; normal hard and soft palate. Normal external ears. Neck: Trachea midline; supple, no thyromegaly or lymphadenopathy Lungs: CTA, with normal respiratory effort and no intercostal retractions CV: RRR, no murmurs Abdomen: Soft, non-tender; no masses or hepatosplenomegaly Extremities: No peripheral edema or extremity lymphadenopathy Skin: bilateral facial, upper torso and arms edema and diffuse rash. Old right ankle scar. Psych: Appropriate affect, alert and oriented to person, place and time. Neuro: alert and oriented x 3. Moving all extermities Lines: No CVL / PICC - Constitutional Vitals: Vital Signs Temp Pulse Resp BP Pulse Ox 100.4 F H 89 18 108/62 100 01/15/17 13:35 01/15/17 13:35 01/15/17 13:35 01/15/17 13:35 01/15/17 10:58 Temperature -Last 24 Hours Temperature 100.4 F Temperature 101.9 F Temperature 100.6 F Temperature 102.1 F Temperature 101.5 F Results - Labs CBC & Chem 7: 01/14/17 08:19 01/14/17 08:19 Assessment and Plan Assessment: 1) SIRS: Not Present on admission, manifested by fever, tachycardia. Etiology most likely allergic reaction. 2) Diffuse rash / fever: from likely contrasted dye ? for angioplasty. 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 -S/P successful thrombectomy and angioplasty of the left lower extremity . Plan: -follow-up blood cultures -obtain procalcitonin, C-reactive protein (CRP) -stop vancomycin -start IV steroids/benadryl/ranitidine -monitor rash Thank you Dr Thomas for your consultation, will follow up with you. Ciara Rodriguez MD Infectious Diseases Specialist [facility] ([facility]) M [phone] O [phone]
[2017-01-15] MEDS ORDERED: ZANAFLEX PO PRN (16:02)
[2017-01-15] MEDS ORDERED: PEPCID IV SCH (16:30)
[2017-01-15] MEDS: BENADRYL IV SCH (17:08)
--- NOTE | 2017-01-15 18:52 | Progress Note ---
Assessment and Plan Assessment and plan: Acute DVT left lower ext, iliofemoral thrombosis. She has chronic recuurent DVTs. s/p EKOS catheter placement, thrombolysis. Heparin drip discontinued becuse of allergic reaction. [facility] is Primary Attending Fever. WBC normal, Blood cultures x2 drawn. Urinalysis unremarkable, chest x ray negative. I discussed case with Dr. Real and recommend consult to ID Physician. She was evaluated by Dr. Montesinos. She rules out infection and states this may be allergic reaction to contrast. Acute allergic Reaction to Heparin, which is now discontinued. Acute allergic reaction, likely secondary to contrast. Start solumedrol, benadryl,pepcid. Discussed with Dr. Montesinos and [facility] GERD. On Protonix Full code status History Interval history: Pain left lower extremity, Still having fever Hospitalist Physical - Physical exam Narrative exam: Gen Appearance: Not in acute distress, morbidly obese HEENT: normocephalic, atraumatic Neck: supple, no JVD Lungs: Clear to auscultation, no rales, no wheezing, Heart: S1 and S2 regular, no murmurs,no rubs or gallop, Abdomen: Soft , non tender, non distended, normal bowel sounds Extremity: Trace edema, no clubbing or cyanosis, Neuro : Awake,alert, oriented x 3, normal speech, moves all extremities Psych: Normal mood Skin: diffuse erythematous rash - Constitutional Vitals: Temp Pulse Resp BP Pulse Ox 100.4 F H 89 18 108/62 100 01/15/17 13:35 01/15/17 13:35 01/15/17 13:35 01/15/17 13:35 01/15/17 10:58 General appearance: Present: no acute distress Results - Labs CBC & Chem 7: 01/16/17 11:00 01/14/17 08:19 Labs: Laboratory Last Values WBC 4.0 K/mm3 (4.5-11.0) L 01/14/17 08:19 RBC 3.88 M/mm3 (3.65-5.03) 01/14/17 08:19 Hgb 11.7 gm/dl (10.1-14.3) 01/14/17 08:19 Hct 35.1 % (30.3-42.9) 01/14/17 08:19 MCV 91 fl (79-97) 01/14/17 08:19 MCH 30 pg (28-32) 01/14/17 08:19 MCHC 33 % (30-34) 01/14/17 08:19 RDW 14.5 % (13.2-15.2) 01/14/17 08:19 Plt Count 75 K/mm3 (140-440) L 01/14/17 08:19 Lymph % (Auto) Not Reportable 01/11/17 16:03 [place] % (Auto) Not Reportable 01/11/17 16:03 Eos % (Auto) Not Reportable 01/11/17 16:03 Baso % (Auto) Not Reportable 01/11/17 16:03 Lymph # Not Reportable 01/11/17 16:03 [place] # Not Reportable 01/11/17 16:03 Eos # Not Reportable 01/11/17 16:03 Baso # Not Reportable 01/11/17 16:03 Add Manual Diff Complete 01/12/17 04:50 Total Counted 100 01/12/17 04:50 Seg Neutrophils % Supervisor Insulation 01/12/17 04:50 Seg Neuts % (Manual) 97.0 % (40.0-70.0) H 01/12/17 04:50 Band Neutrophils % 1.0 % 01/12/17 04:50 Lymphocytes % (Manual) 1.0 % (13.4-35.0) L 01/12/17 04:50 Reactive Lymphs % (Man) 0 % 01/12/17 04:50 Monocytes % (Manual) 1.0 % (0.0-7.3) 01/12/17 04:50 Eosinophils % (Manual) 0 % (0.0-4.3) 01/12/17 04:50 Basophils % (Manual) 0 % (0.0-1.8) 01/12/17 04:50 Metamyelocytes % 0 % 01/12/17 04:50 Myelocytes % 0 % 01/12/17 04:50 Promyelocytes % 0 % 01/12/17 04:50 Blast Cells % 0 % 01/12/17 04:50 Nucleated RBC % Not Reportable 01/12/17 04:50 Seg Neutrophils # Not Reportable 01/11/17 16:03 Seg Neutrophils # Man 8.3 K/mm3 (1.8-7.7) H 01/12/17 04:50 Band Neutrophils # 0.1 K/mm3 01/12/17 04:50 Lymphocytes # (Manual) 0.1 K/mm3 (1.2-5.4) L 01/12/17 04:50 Abs React Lymphs (Man) 0.0 K/mm3 01/12/17 04:50 Monocytes # (Manual) 0.1 K/mm3 (0.0-0.8) 01/12/17 04:50 Eosinophils # (Manual) 0.0 K/mm3 (0.0-0.4) 01/12/17 04:50 Basophils # (Manual) 0.0 K/mm3 (0.0-0.1) 01/12/17 04:50 Metamyelocytes # 0.0 K/mm3 01/12/17 04:50 Myelocytes # 0.0 K/mm3 01/12/17 04:50 Promyelocytes # 0.0 K/mm3 01/12/17 04:50 Blast Cells # 0.0 K/mm3 01/12/17 04:50 WBC Morphology Not Reportable 01/12/17 04:50 Hypersegmented Neuts Not Reportable 01/12/17 04:50 Hyposegmented Neuts Not Reportable 01/12/17 04:50 Hypogranular Neuts Not Reportable 01/12/17 04:50 Smudge Cells Not Reportable 01/12/17 04:50 Toxic Granulation Not Reportable 01/12/17 04:50 Toxic Vacuolation Not Reportable 01/12/17 04:50 Dohle Bodies Not Reportable 01/12/17 04:50 Pelger-Huet Anomaly Not Reportable 01/12/17 04:50 Martina Rods Not Reportable 01/12/17 04:50 Platelet Estimate Appears normal 01/12/17 04:50 Clumped Platelets Not Reportable 01/12/17 04:50 Plt Clumps, EDTA Not Reportable 01/12/17 04:50 Large Platelets Not Reportable 01/12/17 04:50 Giant Platelets Not Reportable 01/12/17 04:50 Platelet Satelliting Not Reportable 01/12/17 04:50 Plt Morphology Comment Not Reportable 01/12/17 04:50 RBC Morphology Not Reportable 01/12/17 04:50 Dimorphic RBCs Not Reportable 01/12/17 04:50 Polychromasia Not Reportable 01/12/17 04:50 Hypochromasia Not Reportable 01/12/17 04:50 Poikilocytosis Not Reportable 01/12/17 04:50 Anisocytosis Rare 01/12/17 04:50 Microcytosis Not Reportable 01/12/17 04:50 Macrocytosis Not Reportable 01/12/17 04:50 Spherocytes Not Reportable 01/12/17 04:50 Pappenheimer Bodies Not Reportable 01/12/17 04:50 Sickle Cells Not Reportable 01/12/17 04:50 Target Cells Not Reportable 01/12/17 04:50 Tear Drop Cells Not Reportable 01/12/17 04:50 Ovalocytes Not Reportable 01/12/17 04:50 Helmet Cells Not Reportable 01/12/17 04:50 Mata-Carrier Bodies Not Reportable 01/12/17 04:50 [place] Rings Not Reportable 01/12/17 04:50 Kaiser Cells Not Reportable 01/12/17 04:50 Bite Cells Not Reportable 01/12/17 04:50 Crenated Cell Not Reportable 01/12/17 04:50 Elliptocytes Not Reportable 01/12/17 04:50 Acanthocytes (Spur) Not Reportable 01/12/17 04:50 Rouleaux Not Reportable 01/12/17 04:50 Hemoglobin C Crystals Not Reportable 01/12/17 04:50 Schistocytes Not Reportable 01/12/17 04:50 Malaria parasites Not Reportable 01/12/17 04:50 Adrian Bodies Not Reportable 01/12/17 04:50 Hem Pathologist Commnt No 01/12/17 04:50 PT 14.4 Sec. (12.2-14.9) 01/11/17 08:57 INR 1.07 (0.87-1.13) 01/11/17 08:57 APTT 24.8 Sec. (24.2-36.6) 01/11/17 08:57 Fibrinogen 284 mg/dl (211-480) 01/12/17 04:50 Heparin Anti-Xa Level 0.26 U.I./ml (0.3-0.7) L 01/12/17 04:50 Sodium 135 mmol/L (137-145) L 01/14/17 08:19 Potassium 4.0 mmol/L (3.6-5.0) 01/14/17 08:19 Chloride 99.3 mmol/L (98-107) 01/14/17 08:19 Carbon Dioxide 26 mmol/L (22-30) 01/14/17 08:19 Anion Gap 14 mmol/L 01/14/17 08:19 BUN 8 mg/dL (7-17) 01/14/17 08:19 Creatinine 0.8 mg/dL (0.7-1.2) 01/14/17 08:19 Estimated GFR > 60 ml/min 01/14/17 08:19 BUN/Creatinine Ratio 10 % 01/14/17 08:19 Glucose 103 mg/dL (65-100) H 01/14/17 08:19 Lactic Acid 1.80 mmol/L (0.7-2.0) 01/13/17 15:25 Calcium 7.8 mg/dL (8.4-10.2) L 01/14/17 08:19 Urine Color Straw (Yellow) 01/13/17 21:18 Urine Turbidity Clear (Clear) 01/13/17 21:18 Urine pH 8.0 (5.0-7.0) H 01/13/17 21:18 Ur Specific [place] 1.004 (1.003-1.030) 01/13/17 21:18 Urine Protein <15 mg/dl mg/dL (Negative) 01/13/17 21:18 Urine Glucose (UA) Neg mg/dL (Negative) 01/13/17 21:18 Urine Ketones Neg mg/dL (Negative) 01/13/17 21:18 Urine Blood Sm (Negative) 01/13/17 21:18 Urine Nitrite Neg (Negative) 01/13/17 21:18 Urine Bilirubin Neg (Negative) 01/13/17 21:18 Urine Urobilinogen < 2.0 mg/dL (<2.0) 01/13/17 21:18 Ur Leukocyte Esterase Neg (Negative) 01/13/17 21:18 Urine WBC (Auto) < 1.0 /HPF (0.0-6.0) 01/13/17 21:18 Urine RBC (Auto) < 1.0 /HPF (0.0-6.0) 01/13/17 21:18 U Epithel Cells (Auto) 1.0 /HPF (0-13.0) 01/13/17 21:18
[2017-01-16] MEDS: BENADRYL IV SCH ×3 (00:06→17:48)
[2017-01-16] MEDS: DILAUDID IV PRN ×4 (00:07→17:48)
[2017-01-16 09:59] VITALS: BP 107/43
[2017-01-16] MEDS: ELIQUIS PO SCH (10:50)
[2017-01-16] MEDS: COLACE PO SCH (10:50)
[2017-01-16 11:37] LABS: Hematocrit 31.9 % (30.3-42.9); Mean Corpuscular HGB Conc 35 % (30-34); Mean Corpuscular Hemoglobin 31 pg (28-32); Mean Corpuscular Volume 90 fl (79-97); Platelet Count 110 K/mm3 (140-440); Red Blood Count 3.53 M/mm3 (3.65-5.03); Red Cell Distribution Width 14.7 % (13.2-15.2); White Blood Count 5.1 K/mm3 (4.5-11.0)
--- NOTE | 2017-01-16 13:50 | Progress Note ---
Assessment and Plan Assessment: 1) SIRS: resolved. Etiology most likely allergic reaction. CRP=13 2) Diffuse rash / fever: from likely contrasted dye ? for angioplasty. It does not look like heparin-rash. Improved on IV steroids. 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 -S/P successful thrombectomy and angioplasty of the left lower extremity . Plan: -taper down storoids I am signing off Thank you Dr Ayala for your consultation, will follow up with you. Ciara Rodriguez MD Infectious Diseases Specialist [facility] ([facility]) M [phone] O [phone] Subjective Date of service: 01/16/17 Principal diagnosis: ileofemoral LLE DVT Interval history: Feels remarkably better. NO fever. Rash improving no itching. Microbiology: Blood cultures: 01/13 ngtd Urine cultures: 01/13 ngtd Current Antimicrobials: none Previous Antimicrobials: Vancomycin 01/13 Objective - Exam Narrative Exam: General appearance: Alert in NAD, conversant Eyes: anicteric sclerae, moist conjunctivae; no lid-lag; PERRLA HENT: Atraumatic; oropharynx clear with moist mucous membranes and no mucosal ulcerations/no oral thrush; normal hard and soft palate. Normal external ears. Neck: Trachea midline; supple, no thyromegaly or lymphadenopathy Lungs: CTA, with normal respiratory effort and no intercostal retractions CV: RRR, no murmurs Abdomen: Soft, non-tender; no masses or hepatosplenomegaly Extremities: No peripheral edema or extremity lymphadenopathy Skin: bilateral facial, upper torso and arms decreased edema and diffuse rash. Old right ankle scar. Psych: Appropriate affect, alert and oriented to person, place and time. Neuro: alert and oriented x 3. Moving all extermities Lines: No CVL / PICC - Constitutional Vitals: Vital Signs Temp Pulse Resp BP Pulse Ox 98.0 F 72 20 107/43 98 01/16/17 08:10 01/16/17 08:27 01/16/17 10:51 01/16/17 08:10 01/16/17 08:28 Temperature -Last 24 Hours Temperature 98.0 F Temperature 98.3 F Temperature 98.3 F Temperature 98.3 F Temperature 97.9 F Temperature 99.2 F Temperature 100.0 F - Labs CBC & Chem 7: 01/16/17 11:00 01/14/17 08:19 Labs: Abnormal lab results 01/15/17 01/16/17 Range/Units 19:06 11:00 RBC 3.53 L (3.65-5.03) M/mm3 MCHC 35 H (30-34) % Plt Count 110 L (140-440) K/mm3 C-Reactive Protein 13.30 H (0.00-1.30) mg/dL
--- NOTE | 2017-01-16 14:17 | Progress Note ---
Assessment and Plan Pt doing much better. Consultants help appreciated. Plt count improved to 110k Will d/c home later today, with medrol dose pack. F/u in the office in 1-2 weeks. - Patient Problems (1) Swelling of both upper extremities Current Visit: Yes Status: Acute (2) Fever and chills Current Visit: Yes Status: Acute (3) Thrombocytopenia Current Visit: No Status: Acute Subjective Date of service: 01/16/17 Principal diagnosis: ileofemoral LLE DVT Interval history: Pt awake and alert. She feels much better. Rash improving, fevers resolved. OOB ambulating in hallway. Objective - Constitutional Vitals: Vital Signs - 12hr 01/16/17 01/16/17 01/16/17 03:38 03:58 04:30 Temperature 98.3 F 98.3 F Pulse Rate 65 78 Respiratory 18 Rate Blood Pressure 105/52 Blood Pressure 94/49 [Left] O2 Sat by Pulse 100 Oximetry 01/16/17 01/16/17 01/16/17 05:20 08:10 08:27 Temperature 98.3 F 98.0 F Pulse Rate 78 75 72 Respiratory 18 20 Rate Blood Pressure Blood Pressure 94/49 107/43 [Left] O2 Sat by Pulse 97 98 Oximetry 01/16/17 01/16/17 08:28 10:51 Temperature Pulse Rate Respiratory 20 Rate Blood Pressure Blood Pressure [Left] O2 Sat by Pulse 98 Oximetry General appearance: Present: no acute distress - EENT Eyes: EOM intact ENT: hearing intact - Neck Neck: supple - Respiratory Respiratory effort: normal Extremities: no ischemia, normal color Extremity abnormal: edema (mild swelling of her hands) - Neurologic Neurologic: no focal deficits - Psychiatric Psychiatric: appropriate mood/affect, intact judgment & insight, cooperative - Labs CBC & Chem 7: 01/16/17 11:00 01/14/17 08:19 Labs: Abnormal lab results 01/15/17 01/16/17 Range/Units 19:06 11:00 RBC 3.53 L (3.65-5.03) M/mm3 MCHC 35 H (30-34) % Plt Count 110 L (140-440) K/mm3 C-Reactive Protein 13.30 H (0.00-1.30) mg/dL
--- NOTE | 2017-01-16 14:19 | Vascular Lab Report ---
UPPER EXTREMITY VENOUS DUPLEX: REASON FOR EXAM: Pain and swelling of the upper extremities COMMENTS ON THE RIGHT: All arm veins visualized are freely compressible without evidence of internal echogenicity. The subclavian and internal jugular veins are free of thrombus. Flow is spontaneous and phasic throughout. COMMENTS ON THE LEFT: All arm veins visualized are freely compressible without evidence of internal echogenicity. The subclavian and internal jugular veins are free of thrombus. Flow is spontaneous and phasic throughout. IMPRESSION: No evidence of acute or chronic deep venous thrombosis in the upper extremities.
--- NOTE | 2017-01-16 15:34 | Discharge Summary ---
Providers - Providers Date of Admission: 01/11/17 10:45 Date of discharge: 01/16/17 Attending physician: RUBIO REHMAN 01/11/17 09:20 Consult to Physician [CONS] Routine Consulting Provider: RUBI PECK Reason For Exam: medical management Place consult to:: Hospitalist Notified:: yes Time called:: 08:00 Comment:: spoke with office 01/11/17 16:04 Consult to Physician [CONS] Routine Consulting Provider: RUBIO REHMAN Reason For Exam: admit to critical care Place consult to:: reji Notified:: yes Phone number called:: [phone] Was contact made?: Yes If yes, spoke with:: reji Time called:: 16:00 01/12/17 10:00 Consult to Physician [CONS] Urgent Consulting Provider: LEONEL CHAVEZ Reason For Exam: critical care management Place consult to:: Notified:: yes Was contact made?: Yes If yes, spoke with:: Time called:: 10:00 01/12/17 16:46 Consult to Physician [CONS] Routine Consulting Provider: MICHELLE THOMAS Reason For Exam: Facial hives Place consult to:: Hospitalist Notified:: yes Was contact made?: No 01/14/17 11:06 Consult to Physician [CONS] Routine Consulting Provider: VINNIE RIBERA Reason For Exam: Fever of unknown origin Place consult to:: Dr. 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 Ultrasound-guided access of the left popliteal vein 2. Venography of the left lower extremity 3. Ultrasound-guided access of the left lesser saphenous vein 4. Selection of the left external and common iliac veins with venography of the IVC and left iliac veins 5. Angioplasty of the left lesser saphenous vein with a 3 mm x 120 mm angioplasty balloon 6. Injection of 600 g of nitroglycerin in the left lesser saphenous vein 7. Pulse spray of 10 mg of TPA in the left common iliac vein, external iliac vein, common femoral vein, and proximal superficial femoral vein 8. 6 Sammarinese mechanical thrombectomy of the left common iliac vein, external iliac vein, common femoral vein, and proximal superficial femoral vein 9. 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 DEVICES: 3 mm x 120 mm angioplasty balloon 6 Sammarinese AngioJet 30 cm x 106 cm EKOS thrombolytic catheter CONTRAST: Please see manufacturing laborer report for full details Operative Report Operative Report: EXAM: 1. Thrombolytic cath removal from the left lower extremity venous system 2. Venography of the left lower extremity 3. Aspiration thrombectomy with 8 S[place]inese MPA guide catheter in the left common iliac vein, left external iliac vein, left common femoral vein 4. Trerotola mechanical thrombectomy of the left common femoral vein 5. Angioplasty of the inferior vena cava with a 12 mm angioplasty balloon 6. Angioplasty of the left common iliac vein with a 12 mm angioplasty balloon 7. Angioplasty of the left external iliac vein with a 12 mm angioplasty balloon 8. Angioplasty of the left common femoral vein with a 12 mm angioplasty balloon 9. Angioplasty of the left proximal superficial femoral vein with a 10 mm angioplasty balloon 10. Repeat aspiration thrombectomy of the left common iliac vein, left external iliac vein, and left common femoral vein with a 8 S[place] MPA guide 11. Repeat angioplasty of the left common iliac vein, external iliac vein, and common femoral vein with a 12 mm angioplasty balloon DATE: 01/12/17 CIGARETTE MAKING MACHINE CATCHER: RUBIO REHMAN MD INDICATION: Left lower extremity iliofemoral DVT with severe symptoms with disabling venous claudication and inability to ambulate. MEDICATIONS: Please see nursing report for full details. DEVICES: 12 mm angioplasty balloon 8 [place] MPA guide Trerotola mechanical thrombectomy device 10 mm angioplasty balloon CONTRAST: Please see cath report for full details. Hospital course: Pt admitted with an acute thrombosis of her left lower ext venous anatomy. She was taken to the manufacturing laborer where the initial procedure was completed. Post- operatively she was transferred to the ICU for EKOS thrombolysis and close pt monitoring. She developed a facial and upper ext rash. This was suspected to be an allergic reaction. She was placed on benadryl and steroids. A consult was placed to the hospitalist service. On hospital day 2 she was taken back to the manufacturing laborer for the 2nd procedure. This was performed without complication. Her symptoms improved, and she was being prepared for d/c on Eliquis. Unfortunately , she developed a fever with chills. An ID consult was requested. This was ultimately felt to be related to the allergic reaction. She was continued on steroids and histamine blockers (d/c medications written by the hospitalist). By 01/16/17 her symptoms improved and she was stable for d/c. Pt will continue Eliquis upon discharge. She will take 10mg po bid x3 more days then decrease to 5mg po bid thereafter. She will f/u in our office in 1-2 weeks. She should f/u with her PCP within 1 week. Disposition: DC- TO HOME OR SELFCARE - Discharge Diagnoses (1) Ileofemoral deep vein thrombosis Status: Acute Qualifiers: Laterality: L (2) Swelling of both upper extremities Status: Acute (3) Fever and chills Status: Acute (4) Thrombocytopenia Status: Acute Core Measure Documentation - Palliative Care Palliative Care/ Comfort Measures: Not Applicable - Core Measures Any of the following diagnoses?: DVT/PE, history only - VTE Discharge Requirements Deep Vein Thrombosis/Pulmonary Embolism Present on Admission: Yes Has pt received <5 days of overlap therapy or INR<2.0: No Anticoagulant overlap therapy prescribed at discharge: No Contraindication No Overlap Therapy order at DC: Not Indicated Exam - Constitutional Vitals: Temp Pulse Resp BP Pulse Ox 98.0 F 72 20 107/43 98 01/16/17 08:10 01/16/17 08:27 01/16/17 11:21 01/16/17 08:10 01/16/17 08:28 General appearance: Present: no acute distress - EENT Eyes: Present: EOM intact ENT: hearing intact - Neck Neck: Present: supple - Respiratory Respiratory effort: normal - Extremities Extremities: no ischemia, normal temperature Extremity abnormal: edema (mild bilat upper ext swelling, improving) - Psychiatric Psychiatric: appropriate mood/affect, intact judgment & insight, cooperative - Neurologic Neurologic: no focal deficits Plan Activity: advance as tolerated Weight Bearing Status: Weight Bear as Tolerated Diet: regular Wound: keep clean and dry Follow up with: PRIMARY CAREMD [Primary Care Provider] - 7 Days RUBIO REHMAN MD [Staff Physician] - 14 Days Prescriptions: diphenhydrAMINE [Benadryl CAP] 25 mg PO Q8HR #10 capsule diphenhydrAMINE [Benadryl CAP] 25 mg PO Q8HR #15 capsule Famotidine [Pepcid] 20 mg PO BID #14 tablet Prednisone [predniSONE 5 mg (6-Day Pack, 21 Tabs)] 5 mg PO .TAPER #1 tab.ds.pk
--- NOTE | 2017-01-16 19:16 | Progress Note ---
Hospitalist Physical - Constitutional Vitals: Temp Pulse Resp BP Pulse Ox 98.0 F 72 20 107/43 98 01/16/17 08:10 01/16/17 08:27 01/16/17 17:48 01/16/17 08:10 01/16/17 08:28 General appearance: Present: no acute distress Results - Labs CBC & Chem 7: 01/16/17 11:00 01/14/17 08:19 Labs: Laboratory Last Values WBC 5.1 K/mm3 (4.5-11.0) 01/16/17 11:00 RBC 3.53 M/mm3 (3.65-5.03) L 01/16/17 11:00 Hgb 11.0 gm/dl (10.1-14.3) 01/16/17 11:00 Hct 31.9 % (30.3-42.9) 01/16/17 11:00 MCV 90 fl (79-97) 01/16/17 11:00 MCH 31 pg (28-32) 01/16/17 11:00 MCHC 35 % (30-34) H 01/16/17 11:00 RDW 14.7 % (13.2-15.2) 01/16/17 11:00 Plt Count 110 K/mm3 (140-440) L 01/16/17 11:00 Lymph % (Auto) Not Reportable 01/11/17 16:03 [place] % (Auto) Not Reportable 01/11/17 16:03 Eos % (Auto) Not Reportable 01/11/17 16:03 Baso % (Auto) Not Reportable 01/11/17 16:03 Lymph # Not Reportable 01/11/17 16:03 [place] # Not Reportable 01/11/17 16:03 Eos # Not Reportable 01/11/17 16:03 Baso # Not Reportable 01/11/17 16:03 Add Manual Diff Complete 01/12/17 04:50 Total Counted 100 01/12/17 04:50 Seg Neutrophils % Car Attendant 01/12/17 04:50 Seg Neuts % (Manual) 97.0 % (40.0-70.0) H 01/12/17 04:50 Band Neutrophils % 1.0 % 01/12/17 04:50 Lymphocytes % (Manual) 1.0 % (13.4-35.0) L 01/12/17 04:50 Reactive Lymphs % (Man) 0 % 01/12/17 04:50 Monocytes % (Manual) 1.0 % (0.0-7.3) 01/12/17 04:50 Eosinophils % (Manual) 0 % (0.0-4.3) 01/12/17 04:50 Basophils % (Manual) 0 % (0.0-1.8) 01/12/17 04:50 Metamyelocytes % 0 % 01/12/17 04:50 Myelocytes % 0 % 01/12/17 04:50 Promyelocytes % 0 % 01/12/17 04:50 Blast Cells % 0 % 01/12/17 04:50 Nucleated RBC % Not Reportable 01/12/17 04:50 Seg Neutrophils # Not Reportable 01/11/17 16:03 Seg Neutrophils # Man 8.3 K/mm3 (1.8-7.7) H 01/12/17 04:50 Band Neutrophils # 0.1 K/mm3 01/12/17 04:50 Lymphocytes # (Manual) 0.1 K/mm3 (1.2-5.4) L 01/12/17 04:50 Abs React Lymphs (Man) 0.0 K/mm3 01/12/17 04:50 Monocytes # (Manual) 0.1 K/mm3 (0.0-0.8) 01/12/17 04:50 Eosinophils # (Manual) 0.0 K/mm3 (0.0-0.4) 01/12/17 04:50 Basophils # (Manual) 0.0 K/mm3 (0.0-0.1) 01/12/17 04:50 Metamyelocytes # 0.0 K/mm3 01/12/17 04:50 Myelocytes # 0.0 K/mm3 01/12/17 04:50 Promyelocytes # 0.0 K/mm3 01/12/17 04:50 Blast Cells # 0.0 K/mm3 01/12/17 04:50 WBC Morphology Not Reportable 01/12/17 04:50 Hypersegmented Neuts Not Reportable 01/12/17 04:50 Hyposegmented Neuts Not Reportable 01/12/17 04:50 Hypogranular Neuts Not Reportable 01/12/17 04:50 Smudge Cells Not Reportable 01/12/17 04:50 Toxic Granulation Not Reportable 01/12/17 04:50 Toxic Vacuolation Not Reportable 01/12/17 04:50 Dohle Bodies Not Reportable 01/12/17 04:50 Pelger-Huet Anomaly Not Reportable 01/12/17 04:50 Martina Rods Not Reportable 01/12/17 04:50 Platelet Estimate Appears normal 01/12/17 04:50 Clumped Platelets Not Reportable 01/12/17 04:50 Plt Clumps, EDTA Not Reportable 01/12/17 04:50 Large Platelets Not Reportable 01/12/17 04:50 Giant Platelets Not Reportable 01/12/17 04:50 Platelet Satelliting Not Reportable 01/12/17 04:50 Plt Morphology Comment Not Reportable 01/12/17 04:50 RBC Morphology Not Reportable 01/12/17 04:50 Dimorphic RBCs Not Reportable 01/12/17 04:50 Polychromasia Not Reportable 01/12/17 04:50 Hypochromasia Not Reportable 01/12/17 04:50 Poikilocytosis Not Reportable 01/12/17 04:50 Anisocytosis Rare 01/12/17 04:50 Microcytosis Not Reportable 01/12/17 04:50 Macrocytosis Not Reportable 01/12/17 04:50 Spherocytes Not Reportable 01/12/17 04:50 Pappenheimer Bodies Not Reportable 01/12/17 04:50 Sickle Cells Not Reportable 01/12/17 04:50 Target Cells Not Reportable 01/12/17 04:50 Tear Drop Cells Not Reportable 01/12/17 04:50 Ovalocytes Not Reportable 01/12/17 04:50 Helmet Cells Not Reportable 01/12/17 04:50 [place] Bodies Not Reportable 01/12/17 04:50 Hoffmeister Rings Not Reportable 01/12/17 04:50 [place] Cells Not Reportable 01/12/17 04:50 Bite Cells Not Reportable 01/12/17 04:50 Crenated Cell Not Reportable 01/12/17 04:50 Elliptocytes Not Reportable 01/12/17 04:50 Acanthocytes (Spur) Not Reportable 01/12/17 04:50 Rouleaux Not Reportable 01/12/17 04:50 Hemoglobin C Crystals Not Reportable 01/12/17 04:50 Schistocytes Not Reportable 01/12/17 04:50 Malaria parasites Not Reportable 01/12/17 04:50 Adrian Bodies Not Reportable 01/12/17 04:50 Hem Pathologist Commnt No 01/12/17 04:50 PT 14.4 Sec. (12.2-14.9) 01/11/17 08:57 INR 1.07 (0.87-1.13) 01/11/17 08:57 APTT 24.8 Sec. (24.2-36.6) 01/11/17 08:57 Fibrinogen 284 mg/dl (211-480) 01/12/17 04:50 Heparin Anti-Xa Level 0.26 U.I./ml (0.3-0.7) L 01/12/17 04:50 Sodium 135 mmol/L (137-145) L 01/14/17 08:19 Potassium 4.0 mmol/L (3.6-5.0) 01/14/17 08:19 Chloride 99.3 mmol/L (98-107) 01/14/17 08:19 Carbon Dioxide 26 mmol/L (22-30) 01/14/17 08:19 Anion Gap 14 mmol/L 01/14/17 08:19 BUN 8 mg/dL (7-17) 01/14/17 08:19 Creatinine 0.8 mg/dL (0.7-1.2) 01/14/17 08:19 Estimated GFR > 60 ml/min 01/14/17 08:19 BUN/Creatinine Ratio 10 % 01/14/17 08:19 Glucose 103 mg/dL (65-100) H 01/14/17 08:19 Lactic Acid 1.80 mmol/L (0.7-2.0) 01/13/17 15:25 Calcium 7.8 mg/dL (8.4-10.2) L 01/14/17 08:19 C-Reactive Protein 13.30 mg/dL (0.00-1.30) H 01/15/17 19:06 Urine Color Straw (Yellow) 01/13/17 21:18 Urine Turbidity Clear (Clear) 01/13/17 21:18 Urine pH 8.0 (5.0-7.0) H 01/13/17 21:18 Ur Specific [place] 1.004 (1.003-1.030) 01/13/17 21:18 Urine Protein <15 mg/dl mg/dL (Negative) 01/13/17 21:18 Urine Glucose (UA) Neg mg/dL (Negative) 01/13/17 21:18 Urine Ketones Neg mg/dL (Negative) 01/13/17 21:18 Urine Blood Sm (Negative) 01/13/17 21:18 Urine Nitrite Neg (Negative) 01/13/17 21:18 Urine Bilirubin Neg (Negative) 01/13/17 21:18 Urine Urobilinogen < 2.0 mg/dL (<2.0) 01/13/17 21:18 Ur Leukocyte Esterase Neg (Negative) 01/13/17 21:18 Urine WBC (Auto) < 1.0 /HPF (0.0-6.0) 01/13/17 21:18 Urine RBC (Auto) < 1.0 /HPF (0.0-6.0) 01/13/17 21:18 U Epithel Cells (Auto) 1.0 /HPF (0-13.0) 01/13/17 21:18
[2017-01-16] MEDS ORDERED: MILK OF MAGNESIA PO PRN (20:22)
[2017-01-16] MEDS ORDERED: PROTONIX PO SCH (21:00)
[2017-01-18 16:10] LABS: Heparin-Induced Platelet Antib Negative (Negative); Unfractionated Heparin Negative (Negative)
[2017-01-19] MEDS ORDERED: ELIQUIS PO SCH (07:00)
== END 2017-01-16 20:31 | disposition home or self-care (01) | DRG 271 ==
LOC: CATHLABREC 07:51 → CC1 10:45 → 4A 01-12 22:45
PROVIDERS: ADMIT Radiology Diagnostic Radiology; ATTEND Radiology Diagnostic Radiology
PROC: 04CD3ZZ Extirpation of Matter from Left Common Iliac Artery, Percutaneous Approach (ICD-10-PCS; principal; 2017-01-11)
PROC: 04CJ3ZZ Extirpation of Matter from Left External Iliac Artery, Percutaneous Approach (ICD-10-PCS; 2017-01-11)
PROC: 04CL3ZZ Extirpation of Matter from Left Femoral Artery, Percutaneous Approach (ICD-10-PCS; 2017-01-11)
PROC: 067 Lower Veins, Dilation (ICD-10-PCS; 2017-01-11)
PROC: B51C1ZZ Fluoroscopy of Left Lower Extremity Veins using Low Osmolar Contrast (ICD-10-PCS; 2017-01-11)
PROC: 067D3ZZ Dilation of Left Common Iliac Vein, Percutaneous Approach (ICD-10-PCS; 2017-01-12)
PROC: 067G3ZZ Dilation of Left External Iliac Vein, Percutaneous Approach (ICD-10-PCS; 2017-01-12)
PROC: 06703ZZ Dilation of Inferior Vena Cava, Percutaneous Approach (ICD-10-PCS; 2017-01-12)
PROC: 067N3ZZ Dilation of Left Femoral Vein, Percutaneous Approach (ICD-10-PCS; 2017-01-12)
PROC: 04CD3ZZ Extirpation of Matter from Left Common Iliac Artery, Percutaneous Approach (ICD-10-PCS; 2017-01-12)
PROC: 04CJ3ZZ Extirpation of Matter from Left External Iliac Artery, Percutaneous Approach (ICD-10-PCS; 2017-01-12)
PROC: 04CL3ZZ Extirpation of Matter from Left Femoral Artery, Percutaneous Approach (ICD-10-PCS; 2017-01-12)
PROC: 04CL3ZZ Extirpation of Matter from Left Femoral Artery, Percutaneous Approach (ICD-10-PCS; 2017-01-12)
DX: I82.422 Acute embolism and thrombosis of left iliac vein (principal); Z68.41 Body mass index [BMI] 40.0-44.9, adult; R65.10 Systemic inflammatory response syndrome (SIRS) of non-infectious origin without acute organ dysfunction; I80.212 Phlebitis and thrombophlebitis of left iliac vein; D69.6 Thrombocytopenia, unspecified; K21.9 Gastro-esophageal reflux disease without esophagitis; E66.01 Morbid (severe) obesity due to excess calories; I10 Essential (primary) hypertension; Z88.8 Allergy status to other drugs, medicaments and biological substances; Z88.5 Allergy status to narcotic agent; Z88.0 Allergy status to penicillin
CPT/HCPCS: 36415; 37187; 37212; 37214; 37248; 37249; 51702; 71010; 75820; 76937; 80048; 81001; 82140; 85007; 85025; 85027; 85384; 85520; 85610; 85730; 86022; 86140; 87040; 87086; 93005; 93010; 93970; 96365; 96366; 96368; 96374; 96376; A6250; C1725; C1751; C1757; C1769; C1773; C1887; C1894; C9113; J0583; J0690; J1170; J1200; J1644; J1956; J2250; J2270; J2405; J2930; J2997; J3010; J3370; J3410; J7030; J7040; Q9967